=== PATIENT | male | born 1985 | race African-American/Black ===

== ENCOUNTER 2020-06-27 15:40 | Inpatient (IN) | payer MEDICAID ==
[~2020-06-27] VITALS: Ht 170.2 cm; Wt 115.2 kg
[2020-06-27 17:14] LABS: Basophils # (auto) 0.1 10 ^3/uL (0-0.2); Basophils % (auto) 0.4 % (0.0-2.0); Eosinophils # (auto) 0.1 10 ^3/uL (0-0.8); Eosinophils % (auto) 0.7 % (0.0-7.0); Hematocrit 45.7 % (41.0-53.0); Hemoglobin 15.2 g/dL (13.5-17.5); Lymphocytes # (auto) 2.1 10 ^3/uL (0.4-5.4); Lymphocytes % (auto) 15.3 % (10.0-50.0); Mean Corpuscular Hemoglobin 30.6 pg (28.0-32.0); Mean Corpuscular Hgb Conc. 33.2 g/dL (32.0-36.0); Monocytes # (auto) 1.4 10 ^3/uL (0-1.3); Monocytes % (auto) 10.4 % (0.0-12.0); Neutrophils # (auto) 9.9 10 ^3/uL (1.6-8.6); Neutrophils % (auto) 73.2 % (37.0-80.0); Platelet Count (auto) 125 10^3/uL (140-450); Red Blood Cells 4.97 10^6/uL (4.5-5.90); Red Cell Distribution Width 15.7 % (11.8-14.3); White Blood Cell 13.5 10^3/uL (4.4-10.8)
[2020-06-27 17:31] LABS: Potassium 3.4 mmol/L (3.5-5.1)
[2020-06-27 17:40] LABS: Albumin 3.3 g/dL (3.4-5.0); BUN/Creatinine Ratio 15.2; Bilirubin, Total 2.1 mg/dL (0.2-1.0); Calcium 8.6 mg/dL (8.5-10.1); Total Protein 7.5 g/dL (6.4-8.2)
[2020-06-27] MEDS ORDERED: ASPirin 81 mg TAB PO ONE (18:00)
[2020-06-27] MEDS ORDERED: CLOPIDOGREL 300 MG TAB PO ONE (18:00)
[2020-06-27] MEDS ORDERED: MORPHINE SULFATE 4 MG/ML SYR/VIAL IV ONE (18:00)
[2020-06-27] MEDS ORDERED: ONDANSETRON HCL 4 MG/2 ML VIAL IV ONE (18:00)
[2020-06-27] MEDS ORDERED: ENOXAPARIN SOD 100 MG/1 ML SYRINGE SC ONE (20:00)
[2020-06-27] MEDS ORDERED: POTASSIUM CHL 20 Meq TABLET PO ONE (20:00)
[2020-06-27] MEDS ORDERED: FUROSEMIDE 20 MG/2 ML VIAL IV ONE (20:00)
[2020-06-27] MEDS ORDERED: MORPHINE SULF INJ 2 MG/ML SYRINGE 1ML IV PRN (21:00)
[2020-06-27] MEDS ORDERED: NITROGLYCERIN 0.4 MG SL TAB SL PRN (21:00)
[2020-06-27] MEDS ORDERED: HYDROcodone-ACET 5/325MG TAB PO PRN (21:00)
[2020-06-27 21:05] VITALS: BP 136/107
[2020-06-27] MEDS ORDERED: FUROSEMIDE 40 MG/4 ML VIAL IV SCH (22:00)
[2020-06-28] MEDS ORDERED: ONDANSETRON HCL 4 MG/2 ML VIAL IV PRN (02:00)
[2020-06-28] MEDS ORDERED: POTASSIUM CHL 20 Meq TABLET PO SCH (10:00)
== END 2020-06-27 21:37 | disposition left against medical advice (07) | DRG 194 ==
LOC: ER 15:40 → TELE 15:41
PROVIDERS: ADMIT Hospitalist; ATTEND Hospitalist
DX: I11.0 Hypertensive heart disease with heart failure (principal); I21.A1 Myocardial infarction type 2; N17.9 Acute kidney failure, unspecified; I50.33 Acute on chronic diastolic (congestive) heart failure; E87.6 Hypokalemia; M10.9 Gout, unspecified; Z83.3 Family history of diabetes mellitus; Z82.49 Family history of ischemic heart disease and other diseases of the circulatory system
CPT/HCPCS: 36415; 71045; 80053; 83880; 84443; 84484; 85025; 93005; 93971; G0378

== ENCOUNTER 2020-10-24 16:09 | Inpatient (IN) | payer MEDICAID ==
[~2020-10-24] VITALS: Ht 170.2 cm; Wt 122.2 kg
[2020-10-24 17:03] LABS: Basophils # (auto) 0 10 ^3/uL (0-0.2); Basophils % (auto) 0.7 % (0.0-2.0); Eosinophils # (auto) 0.5 10 ^3/uL (0-0.8); Eosinophils % (auto) 8.7 % (0.0-7.0); Hematocrit 45.6 % (41.0-53.0); Hemoglobin 15.1 g/dL (13.5-17.5); Mean Corpuscular Hgb Conc. 33.1 g/dL (32.0-36.0); Mean Corpuscular Volume 93.4 fL (80.0-100.0); Monocytes # (auto) 0.6 10 ^3/uL (0-1.3); Neutrophils % (auto) 48.6 % (37.0-80.0); Nucleated Red Blood Cells % 0.2 %; Platelet Count (auto) 164 10^3/uL (140-450); Red Blood Cells 4.88 10^6/uL (4.5-5.90); Red Cell Distribution Width 16.4 % (11.8-14.3); White Blood Cell 6.2 10^3/uL (4.4-10.8)
[2020-10-24 17:09] LABS: INR 1.26 (0.9-1.15); Partial Thromboplastin Time 27.2 sec (23.0-31.2)
[2020-10-24] MEDS ORDERED: FUROSEMIDE 20 MG/2 ML VIAL IV ONE (17:15)
[2020-10-24 17:24] LABS: Albumin 3.6 g/dL (3.4-5.0); BUN/Creatinine Ratio 11.6; Calcium 8.3 mg/dL (8.5-10.1); Magnesium 2.2 mg/dL (1.6-2.6); Potassium 3.3 mmol/L (3.5-5.1)
[2020-10-24 17:31] LABS: Bilirubin, Total 1.5 mg/dL (0.2-1.0); Total Protein 7.7 g/dL (6.4-8.2)
[2020-10-24] MEDS ORDERED: ENOXAPARIN SOD 100 MG/1 ML SYRINGE SC ONE (18:00)
[2020-10-24] MEDS ORDERED: HEPARIN SODIUM (PORCINE) 5000 UNITS/ML 1ML VIAL IV ONE (19:00)
[2020-10-24] MEDS ORDERED: MORPHINE SULF INJ 2 MG/ML SYRINGE 1ML IV PRN (19:00)
[2020-10-24] MEDS ORDERED: NITROGLYCERIN 0.4 MG SL TAB SL PRN (19:00)
[2020-10-24] MEDS ORDERED: HEPARIN DRIP/D5W 100UNITS/ML 250 ML IV SCH (19:00)
[2020-10-24 19:38] LABS: Basophils # (auto) 0.1 10 ^3/uL (0-0.2); Basophils % (auto) 1.1 % (0.0-2.0); Eosinophils # (auto) 0.6 10 ^3/uL (0-0.8); Eosinophils % (auto) 8.6 % (0.0-7.0); Hematocrit 46.4 % (41.0-53.0); Hemoglobin 15.5 g/dL (13.5-17.5); Lymphocytes # (auto) 2.2 10 ^3/uL (0.4-5.4); Lymphocytes % (auto) 33.8 % (10.0-50.0); Mean Corpuscular Hemoglobin 31.1 pg (28.0-32.0); Mean Corpuscular Hgb Conc. 33.4 g/dL (32.0-36.0); Monocytes # (auto) 0.6 10 ^3/uL (0-1.3); Monocytes % (auto) 9.7 % (0.0-12.0); Neutrophils # (auto) 3.1 10 ^3/uL (1.6-8.6); Neutrophils % (auto) 46.8 % (37.0-80.0); Nucleated Red Blood Cells % 0.3 %; Platelet Count (auto) 172 10^3/uL (140-450); Red Blood Cells 4.99 10^6/uL (4.5-5.90); Red Cell Distribution Width 16.4 % (11.8-14.3); White Blood Cell 6.5 10^3/uL (4.4-10.8)
[2020-10-24 19:55] LABS: INR 1.31 (0.9-1.15); Partial Thromboplastin Time 29.5 sec (23.0-31.2)
[2020-10-24 21:08] LABS: Alcohol, Urine < 3.0 mg/dL (0-10); Amphetamine Screen, Urine NEGATIVE (NEGATIVE); Barbiturate Scree,Urine NEGATIVE (NEGATIVE); Benzodiazephine Screen, Urine NEGATIVE (NEGATIVE); Cannabinoid Screen, Urine NEGATIVE (NEGATIVE); Cocaine Screen, Urine NEGATIVE (NEGATIVE); Opiate Scree,Urine NEGATIVE (NEGATIVE); Phencyclidine Screen, Urine NEGATIVE (NEGATIVE)
[2020-10-25] VITALS (7 sets, daily range): BP systolic 101–134; BP diastolic 51–78
[2020-10-25] MEDS: ATORVASTATIN 20 MG TAB PO SCH ×2 (00:16→21:30)
[2020-10-25] MEDS: METOPROLOL TARTRATE 25 MG TAB PO SCH ×3 (00:17→21:31)
[2020-10-25] MEDS ORDERED: METO25TA5 PO (01:34)
[2020-10-25] MEDS ORDERED: FURO40TA4 PO (01:34)
[2020-10-25] MEDS ORDERED: ALLO100T PO (01:35)
[2020-10-25] MEDS: POTASSIUM CHL 20MEQ/100ML 100 ML IV SCH ×2 (03:01→06:08)
[2020-10-25 06:53] LABS: Basophils # (auto) 0.1 10 ^3/uL (0-0.2); Basophils % (auto) 1.2 % (0.0-2.0); Eosinophils # (auto) 0.6 10 ^3/uL (0-0.8); Eosinophils % (auto) 8.7 % (0.0-7.0); Hematocrit 45.1 % (41.0-53.0); Hemoglobin 15.2 g/dL (13.5-17.5); Lymphocytes % (auto) 28.8 % (10.0-50.0); Mean Corpuscular Hemoglobin 31.4 pg (28.0-32.0); Mean Corpuscular Hgb Conc. 33.7 g/dL (32.0-36.0); Mean Corpuscular Volume 93.1 fL (80.0-100.0); Monocytes # (auto) 0.6 10 ^3/uL (0-1.3); Monocytes % (auto) 9.1 % (0.0-12.0); Neutrophils # (auto) 3.7 10 ^3/uL (1.6-8.6); Neutrophils % (auto) 52.2 % (37.0-80.0); Nucleated Red Blood Cells % 0.6 %; Platelet Count (auto) 171 10^3/uL (140-450); Red Blood Cells 4.85 10^6/uL (4.5-5.90); Red Cell Distribution Width 16.6 % (11.8-14.3); White Blood Cell 7.1 10^3/uL (4.4-10.8)
[2020-10-25 07:07] LABS: INR 1.25 (0.9-1.15)
[2020-10-25 07:09] LABS: Calcium 9.3 mg/dL (8.5-10.1); Magnesium 2.5 mg/dL (1.6-2.6); Potassium 4.2 mmol/L (3.5-5.1)
[2020-10-25] MEDS ORDERED: fentaNYL CITRATE 100 MCG/2 ML VL ONE (13:04)
[2020-10-25] MEDS ORDERED: IODIXANOL 320MG/ML 100ML BTL IV ONE (13:04)
[2020-10-25] MEDS ORDERED: SODIUM CHL 0.9% 0 ML ONE (13:04)
[2020-10-25] MEDS ORDERED: MIDAZOLAM HCL 1MG/1ML-2 ML VIAL ONE (13:04)
[2020-10-25] MEDS ORDERED: ANGIOMAX 250 MG VIAL IV ONE (13:04)
[2020-10-25] MEDS ORDERED: HEPARIN SODIUM (PORCINE) 5000 UNITS/ML 1ML VIAL ONE (13:04)
[2020-10-25] MEDS ORDERED: VERAPAMIL 2.5MG/ML INJ 2ML VIAL IV ONE (13:05)
[2020-10-25] MEDS ORDERED: LIDOCAINE 2%HCL (LOCAL ANESTH.) INJ 20ML MDV ONE (13:05)
[2020-10-25] MEDS: FUROSEMIDE 100 MG/10ML VIAL IV SCH (18:40)
[2020-10-26 05:00] VITALS: BP 112/75
[2020-10-26] MEDS: FUROSEMIDE 100 MG/10ML VIAL IV SCH (05:23)
[2020-10-26 08:15] VITALS: BP 102/63
[2020-10-26 09:00] VITALS: BP 102/63
[2020-10-26] MEDS: METOPROLOL TARTRATE 25 MG TAB PO SCH (09:53)
[2020-10-26] MEDS ORDERED: DAPAGLIFLOZIN 5 MG TAB PO SCH (10:00)
[2020-10-26 13:00] VITALS: BP 114/72
[2020-10-26] MEDS ORDERED: ATOR20TA50 PO (15:08)
[2020-10-26] MEDS ORDERED: ASPI-266 PO (15:08)
[2020-10-26] MEDS ORDERED: ENAL2.5T7 PO (15:08)
[2020-10-26] MEDS ORDERED: MET25T PO (15:08)
[2020-10-26] MEDS ORDERED: FURO40TA4 PO (15:08)
[2020-10-26] MEDS ORDERED: DAPA1TAB4 PO (15:08)
[2020-10-26 15:52] VITALS: BP 114/72
[2020-10-26 16:30] VITALS: BP 110/73
[2020-10-27] MEDS ORDERED: ENALAPRIL MALEATE 2.5 MG TAB PO SCH (10:00)
== END 2020-10-26 16:34 | disposition home health service (06) | DRG 190 ==
LOC: ER 16:09 → TELE 18:54 → TELE-WESTW 23:00
PROVIDERS: ADMIT Internal Medicine; ATTEND Internal Medicine
PROC: 4A023N7 Measurement of Cardiac Sampling and Pressure, Left Heart, Percutaneous Approach (ICD-10-PCS; principal; 2020-10-25)
PROC: B2111ZZ Fluoroscopy of Multiple Coronary Arteries using Low Osmolar Contrast (ICD-10-PCS; 2020-10-25)
DX: I21.4 Non-ST elevation (NSTEMI) myocardial infarction (principal); I50.21 Acute systolic (congestive) heart failure; I11.0 Hypertensive heart disease with heart failure; Z20.822 Contact with and (suspected) exposure to COVID-19; I25.10 Atherosclerotic heart disease of native coronary artery without angina pectoris; K21.9 Gastro-esophageal reflux disease without esophagitis; M10.9 Gout, unspecified; E66.9 Obesity, unspecified; Z82.49 Family history of ischemic heart disease and other diseases of the circulatory system; Z83.3 Family history of diabetes mellitus; Z68.37 Body mass index [BMI] 37.0-37.9, adult; Z88.0 Allergy status to penicillin; Z88.1 Allergy status to other antibiotic agents
CPT/HCPCS: 36415; 71045; 80048; 80053; 80061; 80307; 83735; 84484; 85025; 85379; 85610; 85730; 87426; 93005; 93306; 93458; 96372; 96374; 99152; G0378; J2250; J3480; Q9967

== ENCOUNTER 2021-05-06 09:41 | Inpatient (IN) | payer MEDICAID ==
[~2021-05-06] VITALS: Ht 170.2 cm; Wt 117.9 kg
[~2021-05-06 09:41] MED LIST: ALLO100T PO; ASPI1TAB91 PO; ATOR20TA50 PO; DAPA1TAB4 PO; ENAL2.5T7 PO; FURO40TA4 PO; MET25T PO
[2021-05-06] MEDS ORDERED: IOHEXOL 350 MG/ML 100ML IJ ONE (10:22)
[2021-05-06 11:25] LABS: Basophils # (auto) 0 10 ^3/uL (0-0.2); Basophils % (auto) 0.6 % (0.0-2.0); Eosinophils # (auto) 0.2 10 ^3/uL (0-0.8); Eosinophils % (auto) 4.6 % (0.0-7.0); Hematocrit 45.4 % (41.0-53.0); Lymphocytes # (auto) 0.7 10 ^3/uL (0.4-5.4); Lymphocytes % (auto) 14.5 % (10.0-50.0); Mean Corpuscular Hemoglobin 30.5 pg (28.0-32.0); Mean Corpuscular Hgb Conc. 33.1 g/dL (32.0-36.0); Monocytes # (auto) 0.5 10 ^3/uL (0-1.3); Neutrophils # (auto) 3.3 10 ^3/uL (1.6-8.6); Neutrophils % (auto) 70.3 % (37.0-80.0); Nucleated Red Blood Cells % 0.2 %; Red Blood Cells 4.94 10^6/uL (4.5-5.90); Red Cell Distribution Width 17.3 % (11.8-14.3); White Blood Cell 4.7 10^3/uL (4.4-10.8)
[2021-05-06 11:37] LABS: Albumin 3.2 g/dL (3.4-5.0); Calcium 8.3 mg/dL (8.5-10.1); Potassium 3.3 mmol/L (3.5-5.1)
[2021-05-06 11:47] LABS: BUN/Creatinine Ratio 10.3; Bilirubin, Total 2.6 mg/dL (0.2-1.0); CRP High Sensitivity 2.13 mg/dL (< 0.3)
[2021-05-06] MEDS ORDERED: POTASSIUM EFFERVESENT TAB 25 MEQ PO ONE (14:45)
[2021-05-06] MEDS ORDERED: ENOXAPARIN SOD 120 MG/0.8 ML SYRINGE SC ONE (14:45)
[2021-05-06] MEDS ORDERED: cefTRIAXone 1GM/50ML D5W 50 ML IV ONE (16:15)
[2021-05-06] MEDS ORDERED: NITROGLYCERIN 0.4 MG SL TAB SL PRN (16:15)
[2021-05-06] MEDS ORDERED: ONDANSETRON HCL 4 MG/2 ML VIAL IV PRN (16:15)
[2021-05-06] MEDS ORDERED: AZITHROMYCIN 500MG/ 250ML 250 ML IV ONE (16:15)
[2021-05-06] MEDS ORDERED: levoFLOXacin 500 MG TAB PO ONE (16:15)
[2021-05-06] MEDS ORDERED: MORPHINE SULFATE INJECTION 2 MG/ML SYRG IV PRN (16:15)
[2021-05-06] MEDS ORDERED: HYDROcodone-ACET 5/325MG TAB PO PRN (16:15)
[2021-05-06] MEDS: FUROSEMIDE 40 MG/4 ML VIAL IV SCH (16:44)
[2021-05-06 17:51] LABS: Urine Bacteria NONE SEEN /hpf (None Seen); Urine Blood Negative /uL (Negative); Urine Specific Gravity 1.007 (1.001-1.035); Urine WBC <1 /hpf (0 - 3)
[2021-05-06] MEDS: IPRATROPIUM BROM 0.5 MG/2.5ML INH SOL NEB SCH (19:45)
[2021-05-06] MEDS: ALBUTEROL SULF 2.5 MG/0.5ML(0.5%) NEB SOLN NEB SCH (19:45)
[2021-05-06] MEDS: METOPROLOL TARTRATE 25 MG TAB PO SCH (21:37)
[2021-05-06 21:38] VITALS: BP 117/83
[2021-05-06] MEDS ORDERED: ACETAMINOPHEN 325 MG TAB PO PRN (23:30)
[2021-05-07] VITALS (8 sets, daily range): BP systolic 115–146; BP diastolic 62–76
[2021-05-07 06:00] LABS: Basophils # (auto) 0 10 ^3/uL (0-0.2); Basophils % (auto) 0.6 % (0.0-2.0); Eosinophils # (auto) 0 10 ^3/uL (0-0.8); Eosinophils % (auto) 0.7 % (0.0-7.0); Hematocrit 41.7 % (41.0-53.0); Hemoglobin 13.9 g/dL (13.5-17.5); Lymphocytes # (auto) 1.3 10 ^3/uL (0.4-5.4); Lymphocytes % (auto) 23.5 % (10.0-50.0); Mean Corpuscular Hemoglobin 30.7 pg (28.0-32.0); Mean Corpuscular Hgb Conc. 33.4 g/dL (32.0-36.0); Mean Corpuscular Volume 92.1 fL (80.0-100.0); Monocytes # (auto) 0.6 10 ^3/uL (0-1.3); Monocytes % (auto) 11.1 % (0.0-12.0); Neutrophils # (auto) 3.6 10 ^3/uL (1.6-8.6); Neutrophils % (auto) 64.1 % (37.0-80.0); Nucleated Red Blood Cells % 0.3 %; Red Blood Cells 4.53 10^6/uL (4.5-5.90); Red Cell Distribution Width 17.3 % (11.8-14.3); White Blood Cell 5.7 10^3/uL (4.4-10.8)
[2021-05-07] MEDS ORDERED: ENOXAPARIN SOD 120 MG/0.8 ML SYRINGE SC SCH (06:00)
[2021-05-07 06:28] LABS: BUN/Creatinine Ratio 9.9; Calcium 8.1 mg/dL (8.5-10.1); Potassium 3.4 mmol/L (3.5-5.1)
[2021-05-07] MEDS: IPRATROPIUM BROM 0.5 MG/2.5ML INH SOL NEB SCH ×3 (07:27→18:00)
[2021-05-07] MEDS: ALBUTEROL SULF 2.5 MG/0.5ML(0.5%) NEB SOLN NEB SCH ×3 (07:27→18:00)
[2021-05-07] MEDS: FUROSEMIDE 40 MG/4 ML VIAL IV SCH (09:21)
[2021-05-07] MEDS: METOPROLOL TARTRATE 25 MG TAB PO SCH (09:22)
[2021-05-07] MEDS ORDERED: POTASSIUM CHL 20 Meq TABLET PO ONE (10:00)
[2021-05-07] MEDS ORDERED: levoFLOXacin 500 MG TAB PO SCH (10:00)
[2021-05-07] MEDS ORDERED: ASPirin-EC 81 mg tab PO SCH (10:00)
[2021-05-07 14:22] LABS: Protein, Urine 11.2 mg/dL (0.0-11.9)
[2021-05-07 14:24] LABS: Amphetamine Screen, Urine NEGATIVE (NEGATIVE); Barbiturate Scree,Urine NEGATIVE (NEGATIVE); Benzodiazephine Screen, Urine NEGATIVE (NEGATIVE); Cannabinoid Screen, Urine NEGATIVE (NEGATIVE); Cocaine Screen, Urine NEGATIVE (NEGATIVE); Opiate Scree,Urine NEGATIVE (NEGATIVE); Phencyclidine Screen, Urine NEGATIVE (NEGATIVE)
[2021-05-07 14:27] LABS: Alcohol, Urine < 3.0 mg/dL (0-10)
[2021-05-07] MEDS ORDERED: FUROSEMIDE 40 MG/4 ML VIAL IV ONE (15:00)
[2021-05-07] MEDS ORDERED: FURO40TA4 PO (15:41)
[2021-05-07] MEDS ORDERED: LEVO-28 PO (15:41)
[2021-05-07] MEDS ORDERED: ALBUAER3 IN (15:41)
[2021-05-07] MEDS ORDERED: MET25T PO (15:41)
== END 2021-05-07 21:50 | disposition home health service (06) | DRG 139 ==
LOC: ER 09:41 → TELE 16:09 → TELE-EAST 20:49 → TELE-WESTW 05-07 14:57
PROVIDERS: ADMIT Internal Medicine; ATTEND Internal Medicine
DX: J18.9 Pneumonia, unspecified organism (principal); I21.4 Non-ST elevation (NSTEMI) myocardial infarction; I50.33 Acute on chronic diastolic (congestive) heart failure; I13.0 Hypertensive heart and chronic kidney disease with heart failure and stage 1 through stage 4 chronic kidney disease, or unspecified chronic kidney disease; E66.01 Morbid (severe) obesity due to excess calories; E78.5 Hyperlipidemia, unspecified; K21.9 Gastro-esophageal reflux disease without esophagitis; R06.03 Acute respiratory distress; Z20.822 Contact with and (suspected) exposure to COVID-19; E87.6 Hypokalemia; M10.9 Gout, unspecified; N18.30 Chronic kidney disease, stage 3 unspecified; Z82.49 Family history of ischemic heart disease and other diseases of the circulatory system; Z83.3 Family history of diabetes mellitus; Z91.19 Patient's noncompliance with other medical treatment and regimen
CPT/HCPCS: 36415; 71275; 76775; 80048; 80053; 80307; 81001; 82306; 82550; 82570; 82728; 83880; 83970; 84100; 84156; 84300; 84484; 84550; 85025; 86141; 87040; 87426; 93005; 93306; 94640; 96365; 96366; 96368; 96372; 96375; 99291; G0378; J0696

== ENCOUNTER 2021-10-01 16:13 | Inpatient (IN) | payer MEDICAID ==
[~2021-10-01] VITALS: Ht 170.2 cm; Wt 121.0 kg
[~2021-10-01 16:13] MED LIST changes: +ALBUAER3 IN; +LEVO-28 PO
[2021-10-01 17:06] LABS: Hemoglobin 14.9 g/dL (13.5-17.5); Mean Corpuscular Hgb Conc. 32.3 g/dL (32.0-36.0); Mean Corpuscular Volume 92.8 fL (80.0-100.0); Red Blood Cells 4.95 10^6/uL (4.5-5.90); Red Cell Distribution Width 17.8 % (11.8-14.3); White Blood Cell 5.9 10^3/uL (4.4-10.8)
[2021-10-01 17:31] LABS: Albumin 3.4 g/dL (3.4-5.0); BUN/Creatinine Ratio 7.8; Calcium 8.6 mg/dL (8.5-10.1); Potassium 3.7 mmol/L (3.5-5.1)
[2021-10-01 17:37] LABS: Basophils % (manual) 0 (0.0-2.0); Bilirubin, Total 3.8 mg/dL (0.2-1.0); Blast Cells 0; Metamyelocytes % 0; Myelocytes % 0; Promyelocytes % 0; Total Protein 7.8 g/dL (6.4-8.2)
[2021-10-01] MEDS ORDERED: ASPirin 325 MG TAB PO ONE (18:00)
[2021-10-01 18:28] LABS: INR 1.45 (0.9-1.15); Partial Thromboplastin Time 29.1 sec (23.6-33.0)
[2021-10-01] MEDS ORDERED: CLOPIDOGREL BISULFATE 75 MG TAB PO ONE (18:30)
[2021-10-01] MEDS ORDERED: HEPARIN SODIUM (PORCINE) 5000 UNITS/ML 1ML VIAL IV ONE (18:30)
[2021-10-01 18:35] LABS: Band Neutrophils % (manual) 1; Eosinophils % (manual) 15 (0-7); Lymphocytes % (manual) 22 (10.0-50.0); Monocytes % (manual) 10 (0-12); Reactive Lymphocytes 2
[2021-10-01] MEDS ORDERED: HEPARIN SODIUM (PORCINE) 5000 UNITS/ML 1ML VIAL ONE (19:30)
[2021-10-01] MEDS ORDERED: MORPHINE SULFATE 4 MG/ML SYR/VIAL IV PRN (19:45)
[2021-10-01] MEDS ORDERED: ONDANSETRON HCL 4 MG/2 ML VIAL IV PRN (19:45)
[2021-10-01] MEDS ORDERED: HEPARIN DRIP/D5W 100UNITS/ML 250 ML IV SCH ×2 (19:45→21:15)
[2021-10-01] MEDS ORDERED: MORPHINE SULFATE INJECTION 2 MG/ML SYRG IV PRN (19:45)
[2021-10-01] MEDS ORDERED: ACETAMINOPHEN 325 MG TAB PO PRN (19:45)
[2021-10-01] MEDS ORDERED: NITROGLYCERIN 0.4 MG SL TAB SL PRN (19:45)
[2021-10-01] MEDS ORDERED: POTASSIUM CHL 20MEQ/100ML 100 ML IV ONE (20:00)
[2021-10-01] MEDS: FUROSEMIDE 40 MG/4 ML VIAL IV SCH (20:46)
[2021-10-01 23:45] VITALS: BP 126/74
[2021-10-02] VITALS (16 sets, daily range): BP systolic 87–133; BP diastolic 36–88
[2021-10-02] MEDS: ATORVASTATIN 20 MG TAB PO SCH ×2 (00:04→21:39)
[2021-10-02] MEDS: METOPROLOL TARTRATE 25 MG TAB PO SCH ×3 (00:04→21:40)
[2021-10-02 00:29] LABS: INR 1.43 (0.9-1.15); Partial Thromboplastin Time 27.5 sec (23.6-33.0)
[2021-10-02] MEDS: FUROSEMIDE 40 MG/4 ML VIAL IV SCH ×2 (06:00→18:06)
[2021-10-02 06:56] LABS: Hematocrit 42.4 % (41.0-53.0); Mean Corpuscular Hemoglobin 30.6 pg (28.0-32.0); Mean Corpuscular Hgb Conc. 33.1 g/dL (32.0-36.0); Mean Corpuscular Volume 92.4 fL (80.0-100.0); Red Blood Cells 4.59 10^6/uL (4.5-5.90); Red Cell Distribution Width 18.2 % (11.8-14.3); White Blood Cell 6.1 10^3/uL (4.4-10.8)
[2021-10-02 07:14] LABS: Albumin 3.1 g/dL (3.4-5.0); BUN/Creatinine Ratio 10.7; Band Neutrophils % (manual) 0; Basophils % (manual) 0 (0.0-2.0); Blast Cells 0; Calcium 8.4 mg/dL (8.5-10.1); Metamyelocytes % 0; Myelocytes % 0; Potassium 3.5 mmol/L (3.5-5.1); Promyelocytes % 0; Reactive Lymphocytes 0
[2021-10-02 07:19] LABS: Bilirubin, Total 3.7 mg/dL (0.2-1.0)
[2021-10-02 07:46] LABS: INR 1.52 (0.9-1.15)
[2021-10-02] MEDS ORDERED: HEPARIN SODIUM (PORCINE) 5000 UNITS/ML 1ML VIAL IV ONE (08:15)
[2021-10-02] MEDS ORDERED: CAL025T GT (09:31)
[2021-10-02] MEDS ORDERED: FURO80TA3 PO (09:33)
[2021-10-02] MEDS ORDERED: 1,4-CRY XX (09:33)
[2021-10-02] MEDS ORDERED: ATOR20TA50 PO (09:33)
[2021-10-02 10:38] LABS: Eosinophils % (manual) 11 (0-7); Lymphocytes % (manual) 21 (10.0-50.0); Monocytes % (manual) 15 (0-12)
[2021-10-02] MEDS: ASPirin 81 mg TAB PO SCH (10:44)
[2021-10-02 15:13] LABS: INR 1.47 (0.9-1.15); Partial Thromboplastin Time 28.6 sec (23.6-33.0)
[2021-10-02] MEDS: SACUBITRIL-VALSARTAN 24mg/26mg TAB PO SCH (21:39)
[2021-10-02] MEDS: ENOXAPARIN SOD 40 MG/0.4 ML SYRINGE SC SCH (21:40)
[2021-10-03] VITALS (7 sets, daily range): BP systolic 110–135; BP diastolic 53–85
[2021-10-03] MEDS: FUROSEMIDE 40 MG/4 ML VIAL IV SCH ×2 (06:06→18:05)
[2021-10-03 06:13] LABS: Hematocrit 43.2 % (41.0-53.0); Hemoglobin 14.5 g/dL (13.5-17.5); Mean Corpuscular Hgb Conc. 33.6 g/dL (32.0-36.0); Red Cell Distribution Width 17.8 % (11.8-14.3); White Blood Cell 6.4 10^3/uL (4.4-10.8)
[2021-10-03 06:17] LABS: Band Neutrophils % (manual) 0; Basophils % (manual) 0 (0.0-2.0); Blast Cells 0; Metamyelocytes % 0; Myelocytes % 0; Promyelocytes % 0; Reactive Lymphocytes 0
[2021-10-03 06:24] LABS: BUN/Creatinine Ratio 13.7; Calcium 8.8 mg/dL (8.5-10.1); Magnesium 2.8 mg/dL (1.6-2.6); Potassium 3.1 mmol/L (3.5-5.1)
[2021-10-03 08:02] LABS: Eosinophils % (manual) 22 (0-7); Lymphocytes % (manual) 13 (10.0-50.0); Monocytes % (manual) 12 (0-12)
[2021-10-03] MEDS: POTASSIUM CHL 20MEQ/100ML 100 ML IV SCH ×2 (08:24→09:52)
[2021-10-03] MEDS: ENOXAPARIN SOD 40 MG/0.4 ML SYRINGE SC SCH ×2 (09:45→21:46)
[2021-10-03] MEDS: ASPirin 81 mg TAB PO SCH (09:45)
[2021-10-03] MEDS: SACUBITRIL-VALSARTAN 24mg/26mg TAB PO SCH ×2 (09:45→21:45)
[2021-10-03] MEDS: METOPROLOL TARTRATE 25 MG TAB PO SCH ×2 (09:46→21:46)
[2021-10-03] MEDS: HYDROcodone-ACET 5/325MG TAB PO PRN ×2 (09:51→15:19)
[2021-10-03] MEDS ORDERED: POTASSIUM EFFERVESENT TAB 25 MEQ GT ONE (11:15)
[2021-10-03] MEDS ORDERED: POTASSIUM CHL 20MEQ/100ML 100 ML IV ONE (11:15)
[2021-10-03] MEDS ORDERED: ALLOPURINOL 100 MG TAB PO ONE (11:30)
[2021-10-03] MEDS ORDERED: POTASSIUM CHL 20 Meq TABLET PO ONE (11:45)
[2021-10-03] MEDS: ATORVASTATIN 20 MG TAB PO SCH (21:45)
[2021-10-04 05:00] VITALS: BP 119/82
[2021-10-04] MEDS: FUROSEMIDE 40 MG/4 ML VIAL IV SCH (06:46)
[2021-10-04 09:00] VITALS: BP 107/72
[2021-10-04] MEDS: SACUBITRIL-VALSARTAN 24mg/26mg TAB PO SCH ×2 (09:08→21:27)
[2021-10-04] MEDS: METOPROLOL TARTRATE 25 MG TAB PO SCH ×2 (09:08→21:44)
[2021-10-04] MEDS: ASPirin 81 mg TAB PO SCH (09:08)
[2021-10-04] MEDS: ENOXAPARIN SOD 40 MG/0.4 ML SYRINGE SC SCH ×2 (09:08→21:45)
[2021-10-04 12:59] VITALS: BP 123/74
[2021-10-04] MEDS ORDERED: BUMETANIDE 2.5mg/10ml (0.25 mg/ml) INJ IV SCH ×2 (14:00)
[2021-10-04 15:56] LABS: BUN/Creatinine Ratio 14.2; Calcium 8.9 mg/dL (8.5-10.1); Magnesium 2.7 mg/dL (1.6-2.6); Potassium 3.8 mmol/L (3.5-5.1)
[2021-10-04 15:58] LABS: Bilirubin, Total 2.4 mg/dL (0.2-1.0); Total Protein 7.7 g/dL (6.4-8.2)
[2021-10-04 17:00] VITALS: BP 126/69
[2021-10-04] MEDS: BUMETANIDE 1mg/4ml VIAL (0.25mg/ml) IV SCH (17:46)
[2021-10-04 20:08] LABS: Calcium 9.4 mg/dL (8.5-10.1); Potassium 3.7 mmol/L (3.5-5.1)
[2021-10-04 20:10] LABS: BUN/Creatinine Ratio 15.4
[2021-10-04] MEDS: ATORVASTATIN 20 MG TAB PO SCH (21:27)
[2021-10-04 22:00] VITALS: BP 117/72
[2021-10-05 05:11] VITALS: BP 120/76
[2021-10-05 05:23] LABS: Hematocrit 46.7 % (41.0-53.0); Hemoglobin 15.8 g/dL (13.5-17.5); Mean Corpuscular Hemoglobin 31.1 pg (28.0-32.0); Mean Corpuscular Hgb Conc. 33.8 g/dL (32.0-36.0); Mean Corpuscular Volume 92.1 fL (80.0-100.0); Red Blood Cells 5.08 10^6/uL (4.5-5.90); Red Cell Distribution Width 17.4 % (11.8-14.3); White Blood Cell 6.9 10^3/uL (4.4-10.8)
[2021-10-05 05:26] LABS: Band Neutrophils % (manual) 0; Basophils % (manual) 0 (0.0-2.0); Blast Cells 0; Metamyelocytes % 0; Myelocytes % 0; Promyelocytes % 0; Reactive Lymphocytes 0
[2021-10-05 05:36] LABS: Magnesium 2.8 mg/dL (1.6-2.6); Potassium 4.1 mmol/L (3.5-5.1)
[2021-10-05 05:38] LABS: BUN/Creatinine Ratio 14.8
[2021-10-05 06:35] LABS: Eosinophils % (manual) 24 (0-7); Lymphocytes % (manual) 25 (10.0-50.0); Monocytes % (manual) 9 (0-12)
[2021-10-05] MEDS: BUMETANIDE 1mg/4ml VIAL (0.25mg/ml) IV SCH (06:35)
[2021-10-05 09:00] VITALS: BP 141/85
[2021-10-05] MEDS: ASPirin 81 mg TAB PO SCH (10:20)
[2021-10-05] MEDS: ENOXAPARIN SOD 40 MG/0.4 ML SYRINGE SC SCH (10:20)
[2021-10-05] MEDS: SACUBITRIL-VALSARTAN 24mg/26mg TAB PO SCH (10:21)
[2021-10-05] MEDS: METOPROLOL TARTRATE 25 MG TAB PO SCH (10:21)
[2021-10-05] MEDS ORDERED: BUME1TAB3 PO (11:01)
[2021-10-05] MEDS ORDERED: SACU1TAB PO (11:01)
[2021-10-05 11:19] VITALS: BP 141/85
== END 2021-10-05 12:10 | disposition home or self-care (01) | DRG 190 ==
LOC: ER 16:13 → TELE 19:37 → DOU IN ICU 23:34 → TELE-WESTW 10-03 12:52
PROVIDERS: ADMIT Internal Medicine; ATTEND Internal Medicine
DX: I21.4 Non-ST elevation (NSTEMI) myocardial infarction (principal); J96.01 Acute respiratory failure with hypoxia; I50.33 Acute on chronic diastolic (congestive) heart failure; I42.2 Other hypertrophic cardiomyopathy; I10 Essential (primary) hypertension; E66.01 Morbid (severe) obesity due to excess calories; E78.5 Hyperlipidemia, unspecified; E87.6 Hypokalemia; Z20.822 Contact with and (suspected) exposure to COVID-19; Z68.41 Body mass index [BMI] 40.0-44.9, adult
CPT/HCPCS: 36415; 71046; 80048; 80053; 83735; 83880; 84132; 84484; 85007; 85027; 85610; 85730; 87081; 93005; 93306; 93970; 96361; 96374; 99291; G0378; J3480

== ENCOUNTER 2022-05-07 09:25 | Inpatient (IN) | payer MEDICAID ==
[~2022-05-07] VITALS: Ht 170.2 cm; Wt 116.2 kg
[~2022-05-07 09:25] MED LIST changes: +1,4-CRY XX; +BUME1TAB3 PO; -DAPA1TAB4 PO; -ENAL2.5T7 PO; -FURO40TA4 PO; -LEVO-28 PO; +SACU1TAB PO
[2022-05-07 10:03] LABS: Basophils # (auto) 0 10 ^3/uL (0-0.2); Basophils % (auto) 0.8 % (0.0-2.0); Eosinophils # (auto) 0 10 ^3/uL (0-0.8); Eosinophils % (auto) 0.1 % (0.0-7.0); Hematocrit 50.6 % (41.0-53.0); Hemoglobin 16.8 g/dL (13.5-17.5); Lymphocytes # (auto) 0.7 10 ^3/uL (0.4-5.4); Lymphocytes % (auto) 14.8 % (10.0-50.0); Mean Corpuscular Hemoglobin 30.3 pg (28.0-32.0); Mean Corpuscular Hgb Conc. 33.2 g/dL (32.0-36.0); Mean Corpuscular Volume 91.2 fL (80.0-100.0); Monocytes # (auto) 0.5 10 ^3/uL (0-1.3); Monocytes % (auto) 9.3 % (0.0-12.0); Neutrophils # (auto) 3.8 10 ^3/uL (1.6-8.6); Nucleated Red Blood Cells % 0.3 %; Red Blood Cells 5.55 10^6/uL (4.5-5.90); Red Cell Distribution Width 17.5 % (11.8-14.3)
[2022-05-07 10:14] LABS: Calcium 8.6 mg/dL (8.5-10.1); Potassium 3.3 mmol/L (3.5-5.1)
[2022-05-07] MEDS ORDERED: SODIUM CHLORIDE 0.9% 1,000 ML IV ONE (10:15)
[2022-05-07] MEDS ORDERED: cefTRIAXone 1GM/50ML D5W 50 ML IV ONE (10:15)
[2022-05-07] MEDS ORDERED: AZITHROMYCIN 500MG/ 250ML 250 ML IV ONE (10:15)
[2022-05-07 10:21] LABS: Albumin 3.6 g/dL (3.4-5.0); Magnesium 1.9 mg/dL (1.6-2.6); Total Protein 7.3 g/dL (6.4-8.2)
[2022-05-07 10:27] LABS: INR 1.57 (0.9-1.15); Partial Thromboplastin Time 31.3 sec (24.6-33.4)
[2022-05-07] MEDS ORDERED: FUROSEMIDE 40 MG/4 ML VIAL IV ONE (10:30)
[2022-05-07] MEDS ORDERED: methylPREDNISolone SOD SUCC 125 MG/2 ML VL IV ONE (10:30)
[2022-05-07 10:40] LABS: Lactic Acid w/Reflex 2.9 mmol/L (0.4-2.0)
[2022-05-07] MEDS ORDERED: ENOXAPARIN SOD 120 MG/0.8 ML SYRINGE SC ONE (11:00)
[2022-05-07] MEDS ORDERED: POTASSIUM EFFERVESENT TAB 25 MEQ PO ONE (11:00)
[2022-05-07 12:22] LABS: Urine Bacteria NONE SEEN /hpf (None Seen); Urine Blood TRACE /uL (Negative); Urine Specific Gravity 1.009 (1.001-1.035); Urine WBC 2 /hpf (0 - 3)
[2022-05-07] MEDS ORDERED: ACETAMINOPHEN 325 MG TAB PO PRN (12:30)
[2022-05-07] MEDS ORDERED: MORPHINE SULFATE 4 MG/ML SYR/VIAL IV PRN (12:30)
[2022-05-07] MEDS ORDERED: ONDANSETRON HCL 4 MG/2 ML VIAL IV PRN (12:30)
[2022-05-07] MEDS ORDERED: ALUM & MAG HYDROX-SIMETH LIQ(MAALOX) 30 ML PO ONE (12:30)
[2022-05-07] MEDS ORDERED: MORPHINE SULFATE INJ 2 MG/ml SYRG IV PRN (12:30)
[2022-05-07] MEDS ORDERED: NITROGLYCERIN 0.4 MG SL TAB SL PRN ×2 (12:30)
[2022-05-07 13:37] LABS: Creatinine, Urine 70 mg/dL (30.0-125.0); Sodium Urine 99 mmol/L (40-220)
[2022-05-07 13:45] LABS: Lactic Acid w/Reflex 2.1 mmol/L (0.4-2.0)
[2022-05-07] MEDS ORDERED: dilTIAZem 125mg/125ml BAG KIT 100 ML IV SCH (15:45)
[2022-05-07] MEDS ORDERED: LIDOCAINE 4MG/ML IV SOLN 500 ML IV SCH ×2 (16:00→16:15)
[2022-05-07] MEDS ORDERED: AMIODARONE HCL 150 MG in D5W 5% 100 ML IV ONE (16:30)
[2022-05-07 16:47] LABS: Phosphorus 2.7 mg/dL (2.5-4.90); Potassium 3.2 mmol/L (3.5-5.1)
[2022-05-07 17:05] LABS: Alcohol, Urine < 3.0 mg/dL (0-10); Amphetamine Screen, Urine NEGATIVE (NEGATIVE); Barbiturate Scree,Urine NEGATIVE (NEGATIVE); Benzodiazephine Screen, Urine NEGATIVE (NEGATIVE); Cannabinoid Screen, Urine NEGATIVE (NEGATIVE); Cocaine Screen, Urine NEGATIVE (NEGATIVE); Opiate Scree,Urine NEGATIVE (NEGATIVE); Phencyclidine Screen, Urine NEGATIVE (NEGATIVE)
[2022-05-07] MEDS: POTASSIUM CHL 20MEQ/100ML 100 ML IV SCH (19:28)
[2022-05-07 20:00] VITALS: BP 110/60
[2022-05-07 21:00] VITALS: BP 101/65
[2022-05-07] MEDS: ATORVASTATIN 20 MG TAB PO SCH (21:36)
[2022-05-07] MEDS: CARVEDILOL 3.125 MG TAB PO SCH (21:36)
[2022-05-07 22:00] VITALS: BP 100/54
[2022-05-07] MEDS: ENOXAPARIN SOD 100 MG/1 ML SYRINGE SC SCH (22:00)
[2022-05-07 23:00] VITALS: BP 121/77
[2022-05-08] VITALS (20 sets, daily range): BP systolic 98–124; BP diastolic 59–79
[2022-05-08] MEDS: BUMETANIDE 2.5mg/10ml (0.25 mg/ml) INJ IV SCH ×3 (01:12→17:42)
[2022-05-08] MEDS: POTASSIUM CHL 20MEQ/100ML 100 ML IV SCH (02:00)
[2022-05-08 04:50] LABS: Basophils # (auto) 0 10 ^3/uL (0-0.2); Basophils % (auto) 0.5 % (0.0-2.0); Eosinophils # (auto) 0 10 ^3/uL (0-0.8); Hematocrit 48.7 % (41.0-53.0); Hemoglobin 16.5 g/dL (13.5-17.5); Lymphocytes # (auto) 0.8 10 ^3/uL (0.4-5.4); Lymphocytes % (auto) 13.9 % (10.0-50.0); Mean Corpuscular Hemoglobin 30.5 pg (28.0-32.0); Mean Corpuscular Hgb Conc. 33.9 g/dL (32.0-36.0); Monocytes # (auto) 0.3 10 ^3/uL (0-1.3); Neutrophils # (auto) 4.6 10 ^3/uL (1.6-8.6); Neutrophils % (auto) 80.6 % (37.0-80.0); Nucleated Red Blood Cells % 0.1 %; Red Blood Cells 5.42 10^6/uL (4.5-5.90); Red Cell Distribution Width 17.2 % (11.8-14.3); White Blood Cell 5.7 10^3/uL (4.4-10.8)
[2022-05-08 05:08] LABS: Calcium 8.5 mg/dL (8.5-10.1); Magnesium 2.1 mg/dL (1.6-2.6); Potassium 4.1 mmol/L (3.5-5.1)
[2022-05-08 05:15] LABS: Albumin 3.4 g/dL (3.4-5.0); BUN/Creatinine Ratio 26.8; Bilirubin, Total 3.7 mg/dL (0.2-1.0); Total Protein 7.2 g/dL (6.4-8.2)
[2022-05-08] MEDS: cefTRIAXone 1GM/50ML D5W 50 ML IV SCH (09:15)
[2022-05-08] MEDS ORDERED: CLOPIDOGREL BISULFATE 75 MG TAB PO SCH (10:00)
[2022-05-08] MEDS: DOCUSATE SOD 100 MG CAP PO SCH (10:00)
[2022-05-08] MEDS: ASPirin 325 MG TAB PO SCH (10:50)
[2022-05-08] MEDS: AZITHROMYCIN 500MG/ 250ML 250 ML IV SCH (10:50)
[2022-05-08] MEDS: CARVEDILOL 3.125 MG TAB PO SCH ×2 (10:51→21:33)
[2022-05-08] MEDS: metOLazone 5 MG TAB PO SCH (10:52)
[2022-05-08] MEDS: ENOXAPARIN SOD 100 MG/1 ML SYRINGE SC SCH ×2 (10:54→21:34)
[2022-05-08] MEDS: LIDOCAINE 4MG/ML IV SOLN 500 ML IV SCH (13:30)
[2022-05-08] MEDS: ATORVASTATIN 20 MG TAB PO SCH (21:34)
[2022-05-09] VITALS (12 sets, daily range): BP systolic 98–130; BP diastolic 49–79
[2022-05-09] MEDS: LIDOCAINE 4MG/ML IV SOLN 500 ML IV SCH (01:02)
[2022-05-09] MEDS: BUMETANIDE 2.5mg/10ml (0.25 mg/ml) INJ IV SCH ×2 (06:55→17:14)
[2022-05-09] MEDS: cefTRIAXone 1GM/50ML D5W 50 ML IV SCH (08:39)
[2022-05-09] MEDS: AZITHROMYCIN 500MG/ 250ML 250 ML IV SCH (09:41)
[2022-05-09] MEDS: metOLazone 5 MG TAB PO SCH (09:42)
[2022-05-09] MEDS: ASPirin 325 MG TAB PO SCH (09:42)
[2022-05-09] MEDS: CARVEDILOL 3.125 MG TAB PO SCH ×2 (09:42→22:44)
[2022-05-09] MEDS: ENOXAPARIN SOD 100 MG/1 ML SYRINGE SC SCH ×2 (09:42→22:44)
[2022-05-09] MEDS: DOCUSATE SOD 100 MG CAP PO SCH (10:00)
[2022-05-09 16:04] LABS: BUN/Creatinine Ratio 27.8; Calcium 8.7 mg/dL (8.5-10.1)
[2022-05-09] MEDS: ATORVASTATIN 20 MG TAB PO SCH (22:43)
[2022-05-10] VITALS (22 sets, daily range): BP systolic 98–131; BP diastolic 24–85
[2022-05-10 05:51] LABS: Basophils # (auto) 0 10 ^3/uL (0-0.2); Eosinophils # (auto) 0 10 ^3/uL (0-0.8); Lymphocytes # (auto) 1.6 10 ^3/uL (0.4-5.4); Red Cell Distribution Width 17.3 % (11.8-14.3)
[2022-05-10 05:54] LABS: Basophils % (auto) 0.5 % (0.0-2.0); Eosinophils % (auto) 0.2 % (0.0-7.0); Hematocrit 53.5 % (41.0-53.0); Lymphocytes % (auto) 20.4 % (10.0-50.0); Mean Corpuscular Hemoglobin 30.3 pg (28.0-32.0); Mean Corpuscular Hgb Conc. 33.6 g/dL (32.0-36.0); Mean Corpuscular Volume 90.3 fL (80.0-100.0); Monocytes % (auto) 12.6 % (0.0-12.0); Neutrophils # (auto) 5.3 10 ^3/uL (1.6-8.6); Neutrophils % (auto) 66.3 % (37.0-80.0); Nucleated Red Blood Cells % 0.2 %; Red Blood Cells 5.93 10^6/uL (4.5-5.90); White Blood Cell 7.9 10^3/uL (4.4-10.8)
[2022-05-10 06:04] LABS: BUN/Creatinine Ratio 25.8; Calcium 8.9 mg/dL (8.5-10.1); Magnesium 2.5 mg/dL (1.6-2.6); Potassium 3.3 mmol/L (3.5-5.1)
[2022-05-10] MEDS: BUMETANIDE 2.5mg/10ml (0.25 mg/ml) INJ IV SCH ×2 (07:11→18:00)
[2022-05-10] MEDS: cefTRIAXone 1GM/50ML D5W 50 ML IV SCH (09:00)
[2022-05-10] MEDS: CARVEDILOL 3.125 MG TAB PO SCH ×2 (10:32→21:50)
[2022-05-10] MEDS ORDERED: POTASSIUM CHL 20 Meq TABLET PO ONE (10:45)
[2022-05-10] MEDS ORDERED: LORazepam 2MG/ML-1ML VIAL IV ONE (11:00)
[2022-05-10] MEDS ORDERED: ALPRAZolam 0.5 MG TAB PO PRN (11:00)
[2022-05-10] MEDS: DOCUSATE SOD 100 MG CAP PO SCH (11:16)
[2022-05-10] MEDS: metOLazone 5 MG TAB PO SCH (11:16)
[2022-05-10] MEDS: ASPirin 325 MG TAB PO SCH (11:17)
[2022-05-10] MEDS: AZITHROMYCIN 500MG/ 250ML 250 ML IV SCH (11:17)
[2022-05-10] MEDS: LIDOCAINE 4MG/ML IV SOLN 500 ML IV SCH (11:17)
[2022-05-10] MEDS: ENOXAPARIN SOD 100 MG/1 ML SYRINGE SC SCH (11:18)
[2022-05-10] MEDS: ALPRAZolam 0.25 MG TAB PO PRN ×2 (15:35→21:49)
[2022-05-10] MEDS: ATORVASTATIN 20 MG TAB PO SCH (21:49)
[2022-05-11] VITALS (19 sets, daily range): BP systolic 91–143; BP diastolic 10–87
[2022-05-11] MEDS: BUMETANIDE 2.5mg/10ml (0.25 mg/ml) INJ IV SCH ×2 (07:39→17:12)
[2022-05-11 08:05] LABS: Red Cell Distribution Width 16.7 % (11.8-14.3)
[2022-05-11 08:07] LABS: Hematocrit 55.6 % (41.0-53.0); Hemoglobin 18.5 g/dL (13.5-17.5); Mean Corpuscular Hemoglobin 29.9 pg (28.0-32.0); Mean Corpuscular Hgb Conc. 33.3 g/dL (32.0-36.0); Mean Corpuscular Volume 89.9 fL (80.0-100.0); Red Blood Cells 6.19 10^6/uL (4.5-5.90); White Blood Cell 6.7 10^3/uL (4.4-10.8)
[2022-05-11] MEDS: ALPRAZolam 0.25 MG TAB PO PRN ×2 (08:14→20:07)
[2022-05-11 08:19] LABS: INR 1.35 (0.9-1.15); Partial Thromboplastin Time 32.7 sec (24.6-33.4)
[2022-05-11 08:21] LABS: Calcium 9.3 mg/dL (8.5-10.1); Potassium 3.2 mmol/L (3.5-5.1)
[2022-05-11 08:27] LABS: Albumin 3.3 g/dL (3.4-5.0); BUN/Creatinine Ratio 34.9; Bilirubin, Total 2.8 mg/dL (0.2-1.0); Total Protein 8.4 g/dL (6.4-8.2)
[2022-05-11] MEDS: cefTRIAXone 1GM/50ML D5W 50 ML IV SCH (09:21)
[2022-05-11] MEDS: ASPirin 325 MG TAB PO SCH (09:22)
[2022-05-11] MEDS: metOLazone 5 MG TAB PO SCH (09:23)
[2022-05-11] MEDS: POTASSIUM CHL 20 Meq TABLET PO SCH ×2 (09:23→21:58)
[2022-05-11] MEDS: CARVEDILOL 3.125 MG TAB PO SCH ×2 (09:24→21:57)
[2022-05-11 09:59] LABS: Band Neutrophils % (manual) 0; Basophils % (manual) 0 (0.0-2.0); Blast Cells 0; Metamyelocytes % 0; Myelocytes % 0; Promyelocytes % 0; Reactive Lymphocytes 0
[2022-05-11] MEDS: AZITHROMYCIN 500MG/ 250ML 250 ML IV SCH (10:00)
[2022-05-11] MEDS: DOCUSATE SOD 100 MG CAP PO SCH (10:00)
[2022-05-11] MEDS: LIDOCAINE 4MG/ML IV SOLN 500 ML IV SCH ×2 (11:15→23:18)
[2022-05-11 11:26] LABS: Eosinophils % (manual) 1 (0-7); Lymphocytes % (manual) 36 (10.0-50.0); Monocytes % (manual) 7 (0-12)
[2022-05-11] MEDS ORDERED: DEXTROSE (50%) 50ML SYRG IV PRN (14:30)
[2022-05-11] MEDS: ACCU-CHEK COMFORT CURVE STRIP VI SCH ×2 (17:12→22:00)
[2022-05-11] MEDS: InsuLIN REG 1unit/0.01ml Soln (100units/ml) SC SCH ×2 (17:12→22:00)
[2022-05-11] MEDS: ATORVASTATIN 20 MG TAB PO SCH (21:57)
[2022-05-12] VITALS (35 sets, daily range): BP systolic 86–157; BP diastolic 43–90
[2022-05-12 05:52] LABS: Potassium 3.6 mmol/L (3.5-5.1)
[2022-05-12 06:03] LABS: Albumin 3.4 g/dL (3.4-5.0); BUN/Creatinine Ratio 36.7; Bilirubin, Total 2.2 mg/dL (0.2-1.0); Calcium 9.6 mg/dL (8.5-10.1); Total Protein 8.5 g/dL (6.4-8.2)
[2022-05-12] MEDS: BUMETANIDE 2.5mg/10ml (0.25 mg/ml) INJ IV SCH ×2 (06:17→18:00)
[2022-05-12] MEDS: InsuLIN REG 1unit/0.01ml Soln (100units/ml) SC SCH ×4 (06:50→22:22)
[2022-05-12] MEDS: ACCU-CHEK COMFORT CURVE STRIP VI SCH ×4 (06:50→22:18)
[2022-05-12] MEDS: cefTRIAXone 1GM/50ML D5W 50 ML IV SCH (08:33)
[2022-05-12] MEDS: ALPRAZolam 0.25 MG TAB PO PRN ×2 (08:44→21:56)
[2022-05-12] MEDS: ASPirin 325 MG TAB PO SCH (08:44)
[2022-05-12] MEDS: CARVEDILOL 3.125 MG TAB PO SCH ×2 (08:45→21:55)
[2022-05-12] MEDS: metOLazone 5 MG TAB PO SCH (08:45)
[2022-05-12] MEDS: AZITHROMYCIN 500MG/ 250ML 250 ML IV SCH (08:46)
[2022-05-12] MEDS: POTASSIUM CHL 20 Meq TABLET PO SCH ×2 (08:46→21:55)
[2022-05-12] MEDS: DOCUSATE SOD 100 MG CAP PO SCH (08:46)
[2022-05-12] MEDS: LIDOCAINE 4MG/ML IV SOLN 500 ML IV SCH (10:34)
[2022-05-12] MEDS ORDERED: SODIUM CHL 0.9% 0 ML ONE (18:12)
[2022-05-12] MEDS ORDERED: ANGIOMAX 250 MG VIAL IV ONE (18:12)
[2022-05-12] MEDS ORDERED: fentaNYL CITRATE 100 MCG/2 ML VL ONE (18:12)
[2022-05-12] MEDS ORDERED: MIDAZOLAM HCL 2MG/2ML 2ml VIAL (1mg/ml) ONE (18:12)
[2022-05-12] MEDS ORDERED: LIDOCAINE 2%HCL (LOCAL ANESTH.) INJ 10ml MDV ONE (18:13)
[2022-05-12] MEDS ORDERED: ADENOSINE 6 MG/2 ML INJ IV ONE ×4 (19:00→19:02)
[2022-05-12] MEDS: ATORVASTATIN 20 MG TAB PO SCH (22:12)
[2022-05-13] VITALS (37 sets, daily range): BP systolic 101–149; BP diastolic 40–84
[2022-05-13 06:02] LABS: Potassium 3.8 mmol/L (3.5-5.1)
[2022-05-13] MEDS: BUMETANIDE 2.5mg/10ml (0.25 mg/ml) INJ IV SCH ×2 (06:02→17:23)
[2022-05-13 06:09] LABS: Albumin 3.2 g/dL (3.4-5.0); BUN/Creatinine Ratio 34.4; Bilirubin, Total 1.9 mg/dL (0.2-1.0); Calcium 9.2 mg/dL (8.5-10.1); Total Protein 8.1 g/dL (6.4-8.2)
[2022-05-13] MEDS: InsuLIN REG 1unit/0.01ml Soln (100units/ml) SC SCH ×4 (06:45→22:00)
[2022-05-13] MEDS: ACCU-CHEK COMFORT CURVE STRIP VI SCH ×4 (06:45→22:00)
[2022-05-13] MEDS: LIDOCAINE 4MG/ML IV SOLN 500 ML IV SCH (06:56)
[2022-05-13] MEDS: cefTRIAXone 1GM/50ML D5W 50 ML IV SCH (09:24)
[2022-05-13] MEDS: AZITHROMYCIN 500MG/ 250ML 250 ML IV SCH (10:11)
[2022-05-13] MEDS: metOLazone 5 MG TAB PO SCH (10:11)
[2022-05-13] MEDS: DOCUSATE SOD 100 MG CAP PO SCH (10:12)
[2022-05-13] MEDS: CARVEDILOL 3.125 MG TAB PO SCH ×2 (10:12→22:35)
[2022-05-13] MEDS: POTASSIUM CHL 20 Meq TABLET PO SCH ×2 (10:12→22:36)
[2022-05-13] MEDS: ASPirin 325 MG TAB PO SCH (10:15)
[2022-05-13] MEDS: ATORVASTATIN 20 MG TAB PO SCH (22:36)
[2022-05-14] VITALS (18 sets, daily range): BP systolic 108–139; BP diastolic 52–93
[2022-05-14] MEDS: BUMETANIDE 2.5mg/10ml (0.25 mg/ml) INJ IV SCH ×2 (06:01→18:00)
[2022-05-14 06:30] LABS: Potassium 3.6 mmol/L (3.5-5.1)
[2022-05-14 06:41] LABS: BUN/Creatinine Ratio 36.8
[2022-05-14 06:42] LABS: Albumin 3.3 g/dL (3.4-5.0); Bilirubin, Total 1.8 mg/dL (0.2-1.0); Calcium 9.3 mg/dL (8.5-10.1); Total Protein 8.2 g/dL (6.4-8.2)
[2022-05-14] MEDS: InsuLIN REG 1unit/0.01ml Soln (100units/ml) SC SCH ×4 (06:55→21:47)
[2022-05-14] MEDS: ACCU-CHEK COMFORT CURVE STRIP VI SCH ×4 (06:56→21:25)
[2022-05-14] MEDS: POTASSIUM CHL 20 Meq TABLET PO SCH ×2 (08:53→21:23)
[2022-05-14] MEDS: cefTRIAXone 1GM/50ML D5W 50 ML IV SCH (09:27)
[2022-05-14] MEDS: DOCUSATE SOD 100 MG CAP PO SCH (09:28)
[2022-05-14] MEDS: metOLazone 5 MG TAB PO SCH (09:28)
[2022-05-14] MEDS: CARVEDILOL 3.125 MG TAB PO SCH ×2 (09:30→21:24)
[2022-05-14] MEDS: ASPirin 325 MG TAB PO SCH (09:30)
[2022-05-14] MEDS: AZITHROMYCIN 500MG/ 250ML 250 ML IV SCH (10:00)
[2022-05-14] MEDS ORDERED: POTASSIUM CHL 20MEQ/100ML 100 ML IV ONE (11:00)
[2022-05-14] MEDS ORDERED: MIDAZOLAM HCL 2MG/2ML 2ml VIAL (1mg/ml) ONE ×2 (15:41→16:46)
[2022-05-14] MEDS ORDERED: fentaNYL CITRATE 100 MCG/2 ML VL ONE (15:41)
[2022-05-14] MEDS ORDERED: VANCOMYCIN HCL 1000 MG VL ONE ×2 (15:41→15:52)
[2022-05-14] MEDS ORDERED: VANCOMYCIN 1GM/250ML 250 ML IV ONE (15:42)
[2022-05-14] MEDS ORDERED: LIDOCAINE 2%HCL (LOCAL ANESTH.) INJ 10ml MDV ONE ×2 (15:51→16:47)
[2022-05-14] MEDS ORDERED: IODIXANOL 320MG/ML 100ML BTL IV ONE (16:23)
[2022-05-14] MEDS ORDERED: VANCOMYCIN PER PHARMACY 0 MG IV SCH (19:30)
[2022-05-14] MEDS: ATORVASTATIN 20 MG TAB PO SCH (21:24)
[2022-05-14] MEDS: VANCOMYCIN 1GM/250ML 250 ML IV SCH (21:25)
[2022-05-15] VITALS (19 sets, daily range): BP systolic 103–138; BP diastolic 43–72
[2022-05-15] MEDS: VANCOMYCIN 1GM/250ML 250 ML IV SCH ×3 (04:39→19:48)
[2022-05-15] MEDS: BUMETANIDE 2.5mg/10ml (0.25 mg/ml) INJ IV SCH ×2 (06:19→18:00)
[2022-05-15] MEDS: ACCU-CHEK COMFORT CURVE STRIP VI SCH ×4 (06:20→21:48)
[2022-05-15] MEDS: InsuLIN REG 1unit/0.01ml Soln (100units/ml) SC SCH ×4 (06:22→21:55)
[2022-05-15 06:35] LABS: Potassium 3.4 mmol/L (3.5-5.1)
[2022-05-15 06:46] LABS: Calcium 9.7 mg/dL (8.5-10.1)
[2022-05-15] MEDS ORDERED: HYDROcodone-ACET 10/325MG TAB PO PRN (08:45)
[2022-05-15] MEDS: POTASSIUM CHL 20MEQ/100ML 100 ML IV SCH ×2 (10:00→16:17)
[2022-05-15] MEDS: POTASSIUM CHL 20 Meq TABLET PO SCH ×2 (10:14→21:54)
[2022-05-15] MEDS: DOCUSATE SOD 100 MG CAP PO SCH (10:15)
[2022-05-15] MEDS: CARVEDILOL 3.125 MG TAB PO SCH ×2 (10:15→21:53)
[2022-05-15] MEDS: metOLazone 5 MG TAB PO SCH (10:15)
[2022-05-15] MEDS: cefTRIAXone 1GM/50ML D5W 50 ML IV SCH (10:18)
[2022-05-15] MEDS: ASPirin 325 MG TAB PO SCH (13:42)
[2022-05-15] MEDS ORDERED: POTASSIUM CHL 20MEQ/100ML 100 ML IV SCH (16:15)
[2022-05-15] MEDS: ATORVASTATIN 20 MG TAB PO SCH (21:54)
[2022-05-16] MEDS: InsuLIN REG 1unit/0.01ml Soln (100units/ml) SC SCH ×3 (05:26→16:56)
[2022-05-16] MEDS: BUMETANIDE 2.5mg/10ml (0.25 mg/ml) INJ IV SCH ×2 (05:26→18:01)
[2022-05-16] MEDS: ACCU-CHEK COMFORT CURVE STRIP VI SCH ×3 (05:26→16:45)
[2022-05-16 07:01] LABS: Potassium 3.4 mmol/L (3.5-5.1)
[2022-05-16 07:05] LABS: BUN/Creatinine Ratio 35.1; Calcium 9.1 mg/dL (8.5-10.1)
[2022-05-16] MEDS: POTASSIUM CHL 20 Meq TABLET PO SCH (08:58)
[2022-05-16] MEDS: DOCUSATE SOD 100 MG CAP PO SCH (08:58)
[2022-05-16] MEDS: ASPirin 325 MG TAB PO SCH (08:59)
[2022-05-16] MEDS: CARVEDILOL 3.125 MG TAB PO SCH (08:59)
[2022-05-16] MEDS: metOLazone 5 MG TAB PO SCH (08:59)
[2022-05-16 09:00] VITALS: BP 105/60
[2022-05-16] MEDS: VANCOMYCIN 1GM/250ML 250 ML IV SCH ×2 (10:30→18:00)
[2022-05-16] MEDS ORDERED: CLOP75TA28 PO (11:40)
[2022-05-16] MEDS ORDERED: DOXY-332 PO (11:40)
[2022-05-16] MEDS ORDERED: ATOR20TA50 PO (11:40)
[2022-05-16] MEDS ORDERED: POTA1TAB61 PO (11:40)
[2022-05-16] MEDS ORDERED: HYDR-4902 PO (11:55)
[2022-05-16 13:00] VITALS: BP 115/74
[2022-05-16 14:54] VITALS: BP 115/74
[2022-05-16 16:54] VITALS: BP 111/66
== END 2022-05-16 20:30 | disposition home or self-care (01) | DRG 179 ==
LOC: ER 09:25 → TELE 12:40 → DOU IN ICU 20:00 → TELE-WESTW 05-15 18:16
PROVIDERS: ADMIT Nurse Practitioner Family; ATTEND Internal Medicine
PROC: 4A023N8 Measurement of Cardiac Sampling and Pressure, Bilateral, Percutaneous Approach (ICD-10-PCS; 2022-05-12)
PROC: B2111ZZ Fluoroscopy of Multiple Coronary Arteries using Low Osmolar Contrast (ICD-10-PCS; 2022-05-12)
PROC: B2151ZZ Fluoroscopy of Left Heart using Low Osmolar Contrast (ICD-10-PCS; 2022-05-12)
PROC: B41F1ZZ Fluoroscopy of Right Lower Extremity Arteries using Low Osmolar Contrast (ICD-10-PCS; 2022-05-12)
PROC: 0JH608Z Insertion of Defibrillator Generator into Chest Subcutaneous Tissue and Fascia, Open Approach (ICD-10-PCS; principal; 2022-05-14)
PROC: 02H63KZ Insertion of Defibrillator Lead into Right Atrium, Percutaneous Approach (ICD-10-PCS; 2022-05-14)
PROC: 02HK3KZ Insertion of Defibrillator Lead into Right Ventricle, Percutaneous Approach (ICD-10-PCS; 2022-05-14)
PROC: B5171ZZ Fluoroscopy of Left Subclavian Vein using Low Osmolar Contrast (ICD-10-PCS; 2022-05-14)
DX: I21.4 Non-ST elevation (NSTEMI) myocardial infarction (principal); J96.21 Acute and chronic respiratory failure with hypoxia; R57.9 Shock, unspecified; I50.43 Acute on chronic combined systolic (congestive) and diastolic (congestive) heart failure; E87.4 Mixed disorder of acid-base balance; J18.9 Pneumonia, unspecified organism; I11.0 Hypertensive heart disease with heart failure; I42.1 Obstructive hypertrophic cardiomyopathy; E66.2 Morbid (severe) obesity with alveolar hypoventilation; I47.20 Ventricular tachycardia, unspecified; I42.2 Other hypertrophic cardiomyopathy; E11.65 Type 2 diabetes mellitus with hyperglycemia; M10.9 Gout, unspecified; I49.9 Cardiac arrhythmia, unspecified; R79.89 Other specified abnormal findings of blood chemistry; E78.5 Hyperlipidemia, unspecified; K21.9 Gastro-esophageal reflux disease without esophagitis; J98.11 Atelectasis; E87.6 Hypokalemia; Z20.822 Contact with and (suspected) exposure to COVID-19; Z79.899 Other long term (current) drug therapy; Z82.49 Family history of ischemic heart disease and other diseases of the circulatory system; Z83.3 Family history of diabetes mellitus; Z87.891 Personal history of nicotine dependence; Z68.41 Body mass index [BMI] 40.0-44.9, adult; Z71.3 Dietary counseling and surveillance; N17.9 Acute kidney failure, unspecified
CPT/HCPCS: 36415; 36600; 71045; 80048; 80053; 80061; 80202; 80307; 81001; 82570; 82805; 82962; 83036; 83605; 83690; 83735; 83880; 84100; 84132; 84300; 84484; 85007; 85025; 85027; 85610; 85730; 86850; 86900; 86901; 87040; 87081; 87426; 93005; 93306; 96365; 96366; 96367; 96372; 96375; 99152; 99153; 99291; C1751; G0378; J0153; J0696; J1815; J2001; J2250; J3480; J7060; Q9967

== ENCOUNTER 2022-07-04 08:16 | Inpatient (IN) | payer MEDICAID ==
[~2022-07-04] VITALS: Ht 170.2 cm; Wt 118.1 kg
[~2022-07-04 08:16] MED LIST changes: +CLOP75TA28 PO; +DOXY-332 PO; +HYDR-4902 PO; +POTA1TAB61 PO
[2022-07-04] MEDS ORDERED: SODIUM CHLORIDE 0.9% 1,000 ML IV ONE ×2 (08:45→12:00)
[2022-07-04] MEDS ORDERED: Surgicel PA 2X3 INCH TOP ONE (08:45)
[2022-07-04 09:08] LABS: Basophils # (auto) 0.1 10 ^3/uL (0-0.2); Basophils % (auto) 1.3 % (0.0-2.0); Eosinophils # (auto) 0.7 10 ^3/uL (0-0.8); Eosinophils % (auto) 8.8 % (0.0-7.0); Hematocrit 48.3 % (41.0-53.0); Hemoglobin 16.3 g/dL (13.5-17.5); Lymphocytes # (auto) 2.4 10 ^3/uL (0.4-5.4); Lymphocytes % (auto) 29.8 % (10.0-50.0); Mean Corpuscular Hemoglobin 30.2 pg (28.0-32.0); Mean Corpuscular Hgb Conc. 33.7 g/dL (32.0-36.0); Mean Corpuscular Volume 89.7 fL (80.0-100.0); Monocytes % (auto) 12.4 % (0.0-12.0); Neutrophils # (auto) 3.8 10 ^3/uL (1.6-8.6); Neutrophils % (auto) 47.7 % (37.0-80.0); Nucleated Red Blood Cells % 0.1 %; Red Blood Cells 5.39 10^6/uL (4.5-5.90); Red Cell Distribution Width 16.7 % (11.8-14.3)
[2022-07-04 09:29] LABS: INR 1.23 (0.9-1.15); Partial Thromboplastin Time 27.9 sec (24.6-33.4)
[2022-07-04 09:30] LABS: BUN/Creatinine Ratio 53.5; Calcium 9.5 mg/dL (8.5-10.1); Magnesium 2.4 mg/dL (1.6-2.6); Potassium 4.1 mmol/L (3.5-5.1)
[2022-07-04] MEDS ORDERED: HYDROcodone-ACET 5/325MG TAB PO ONE (17:15)
[2022-07-04] MEDS ORDERED: HYDR-4902 PO (18:21)
[2022-07-04] MEDS ORDERED: MORPHINE SULFATE INJ 2 MG/ml SYRG IV ONE (18:30)
[2022-07-04 19:11] VITALS: BP 94/70
[2022-07-04] MEDS ORDERED: DOCUSATE SOD 100 MG CAP PO PRN (19:15)
[2022-07-04] MEDS ORDERED: MORPHINE SULFATE INJ 2 MG/ml SYRG IV PRN (19:15)
[2022-07-04] MEDS ORDERED: ONDANSETRON HCL 4 MG/2 ML VIAL IV PRN (19:15)
[2022-07-04] MEDS ORDERED: ALBUTEROL SULF HFA 90MCG INH 200DOSE IN PRN (19:15)
[2022-07-04] MEDS ORDERED: BUMETANIDE 1 MG TAB PO SCH (22:00)
[2022-07-04] MEDS ORDERED: METOPROLOL TARTRATE 25 MG TAB PO SCH (22:00)
[2022-07-04] MEDS ORDERED: POTASSIUM CHL 10 Meq TABLET PO SCH (22:00)
[2022-07-04] MEDS ORDERED: SACUBITRIL-VALSARTAN 24mg/26mg TAB PO SCH (22:00)
[2022-07-05] MEDS ORDERED: ATORVASTATIN 20 MG TAB PO SCH (10:00)
[2022-07-05] MEDS ORDERED: ALLOPURINOL 100 MG TAB PO SCH (10:00)
== END 2022-07-04 19:30 | disposition home or self-care (01) | DRG 115 ==
LOC: ER 08:18 → OVERFLOW 19:09
PROVIDERS: ADMIT Nurse Practitioner Family; ATTEND Nurse Practitioner Family
PROC: 2Y41X5Z Packing of Nasal Region using Packing Material (ICD-10-PCS; principal; 2022-07-04)
DX: R04.0 Epistaxis (principal); N17.9 Acute kidney failure, unspecified; D69.6 Thrombocytopenia, unspecified; I13.0 Hypertensive heart and chronic kidney disease with heart failure and stage 1 through stage 4 chronic kidney disease, or unspecified chronic kidney disease; E87.1 Hypo-osmolality and hyponatremia; I50.9 Heart failure, unspecified; I95.9 Hypotension, unspecified; R74.01 Elevation of levels of liver transaminase levels; N18.9 Chronic kidney disease, unspecified; M10.9 Gout, unspecified; Z83.3 Family history of diabetes mellitus; Z82.49 Family history of ischemic heart disease and other diseases of the circulatory system; Z95.810 Presence of automatic (implantable) cardiac defibrillator
CPT/HCPCS: 30901; 36415; 80053; 83735; 85025; 85610; 85730; 96360; G0378

== ENCOUNTER 2022-07-05 09:29 | Inpatient (IN) | payer MEDICAID ==
[~2022-07-05] VITALS: Ht 170.2 cm; Wt 119.2 kg
[2022-07-05 10:15] LABS: Basophils # (auto) 0 10 ^3/uL (0-0.2); Basophils % (auto) 0.6 % (0.0-2.0); Eosinophils # (auto) 0.1 10 ^3/uL (0-0.8); Eosinophils % (auto) 1.8 % (0.0-7.0); Hematocrit 42.8 % (41.0-53.0); Hemoglobin 14.2 g/dL (13.5-17.5); Lymphocytes # (auto) 1.9 10 ^3/uL (0.4-5.4); Lymphocytes % (auto) 28.3 % (10.0-50.0); Mean Corpuscular Hgb Conc. 33.2 g/dL (32.0-36.0); Mean Corpuscular Volume 90.3 fL (80.0-100.0); Monocytes # (auto) 0.6 10 ^3/uL (0-1.3); Monocytes % (auto) 9.8 % (0.0-12.0); Neutrophils # (auto) 3.9 10 ^3/uL (1.6-8.6); Neutrophils % (auto) 59.5 % (37.0-80.0); Nucleated Red Blood Cells % 0.1 %; Red Blood Cells 4.74 10^6/uL (4.5-5.90); Red Cell Distribution Width 16.8 % (11.8-14.3); White Blood Cell 6.6 10^3/uL (4.4-10.8)
[2022-07-05 10:24] LABS: Albumin 4.5 g/dL (3.4-5.0); Calcium 10.1 mg/dL (8.5-10.1); Potassium 3.6 mmol/L (3.5-5.1)
[2022-07-05 10:28] LABS: BUN/Creatinine Ratio 46.1; Bilirubin, Total 1.8 mg/dL (0.2-1.0); Total Protein 7.7 g/dL (6.4-8.2)
[2022-07-05] MEDS ORDERED: SODIUM CHLORIDE 0.9% 1,000 ML IV ONE (10:45)
[2022-07-05] MEDS ORDERED: AMIODARONE HCL 150 MG in D5W 5% 100 ML IV ONE (11:00)
[2022-07-05 11:12] LABS: INR 1.18 (0.9-1.15); Partial Thromboplastin Time 25.3 sec (24.6-33.4)
[2022-07-05] MEDS ORDERED: AMIODARONE 450mg/250ml AE 250 ML IV SCH (11:15)
[2022-07-05 12:51] LABS: Urine WBC None Seen /hpf (0 - 3)
[2022-07-05 13:08] LABS: Urine Bacteria NONE SEEN /hpf (None Seen); Urine Blood Negative /uL (Negative); Urine Specific Gravity 1.014 (1.001-1.035)
[2022-07-05] MEDS ORDERED: NITROGLYCERIN 0.4 MG SL TAB SL PRN (14:00)
[2022-07-05] MEDS ORDERED: ALBUTEROL SULF 2.5 MG/0.5ML(0.5%) NEB SOLN NEB PRN (14:00)
[2022-07-05] MEDS ORDERED: DEXTROSE (50%) 50ML SYRG IV PRN (14:00)
[2022-07-05] MEDS ORDERED: MORPHINE SULFATE INJ 2 MG/ml SYRG IV PRN (14:00)
[2022-07-05] MEDS ORDERED: ACETAMINOPHEN 325 MG TAB PO PRN (14:00)
[2022-07-05] MEDS ORDERED: ENOXAPARIN SOD 40 MG/0.4 ML SYRINGE SC ONE (14:15)
[2022-07-05 14:26] VITALS: BP 102/61
[2022-07-05] MEDS: SODIUM CHLOR 0.9% PF (SALINE LOCK) 10ML VIAL/SYR IV SCH ×2 (15:54→22:45)
[2022-07-05] MEDS: ACCU-CHEK COMFORT CURVE STRIP VI SCH ×2 (17:00→22:50)
[2022-07-05] MEDS: InsuLIN REG 1unit/0.01ml Soln (100units/ml) SC SCH ×2 (17:32→22:57)
[2022-07-05] MEDS: AMIODARONE 450mg/250ml AE 250 ML IV SCH (18:31)
[2022-07-05] MEDS: SACUBITRIL-VALSARTAN 24mg/26mg TAB PO SCH (22:00)
[2022-07-05] MEDS: POTASSIUM CHL 10 Meq TABLET PO SCH (22:44)
[2022-07-05] MEDS: ASCORBIC ACID 500 MG TAB PO SCH (22:45)
[2022-07-05] MEDS: METOPROLOL TARTRATE 25 MG TAB PO SCH (22:46)
[2022-07-05] MEDS: BUMETANIDE 1 MG TAB PO SCH (22:46)
[2022-07-06 05:00] VITALS: BP 100/55
[2022-07-06] MEDS: SODIUM CHLOR 0.9% PF (SALINE LOCK) 10ML VIAL/SYR IV SCH ×3 (05:19→20:49)
[2022-07-06] MEDS: ACCU-CHEK COMFORT CURVE STRIP VI SCH ×4 (05:19→22:27)
[2022-07-06] MEDS: InsuLIN REG 1unit/0.01ml Soln (100units/ml) SC SCH ×4 (05:25→22:29)
[2022-07-06 07:46] LABS: Basophils # (auto) 0.1 10 ^3/uL (0-0.2); Eosinophils # (auto) 0.7 10 ^3/uL (0-0.8); Eosinophils % (auto) 8.1 % (0.0-7.0); Hematocrit 41.3 % (41.0-53.0); Hemoglobin 14.1 g/dL (13.5-17.5); Lymphocytes # (auto) 2.2 10 ^3/uL (0.4-5.4); Lymphocytes % (auto) 26.4 % (10.0-50.0); Mean Corpuscular Hemoglobin 30.5 pg (28.0-32.0); Mean Corpuscular Hgb Conc. 34.1 g/dL (32.0-36.0); Mean Corpuscular Volume 89.4 fL (80.0-100.0); Monocytes # (auto) 0.8 10 ^3/uL (0-1.3); Monocytes % (auto) 9.6 % (0.0-12.0); Neutrophils # (auto) 4.5 10 ^3/uL (1.6-8.6); Neutrophils % (auto) 54.9 % (37.0-80.0); Nucleated Red Blood Cells % 0.1 %; Red Blood Cells 4.62 10^6/uL (4.5-5.90); Red Cell Distribution Width 16.9 % (11.8-14.3); White Blood Cell 8.3 10^3/uL (4.4-10.8)
[2022-07-06 08:00] VITALS: BP 113/72
[2022-07-06 08:16] LABS: Albumin 4.2 g/dL (3.4-5.0); BUN/Creatinine Ratio 35.5; Potassium 3.7 mmol/L (3.5-5.1)
[2022-07-06 08:18] LABS: Bilirubin, Total 1.5 mg/dL (0.2-1.0); Total Protein 7.8 g/dL (6.4-8.2)
[2022-07-06 09:00] VITALS: BP 113/72
[2022-07-06] MEDS: METOPROLOL TARTRATE 25 MG TAB PO SCH ×2 (09:33→20:48)
[2022-07-06] MEDS: POTASSIUM CHL 10 Meq TABLET PO SCH ×2 (09:33→20:48)
[2022-07-06] MEDS: ALLOPURINOL 100 MG TAB PO SCH (09:34)
[2022-07-06] MEDS: ATORVASTATIN 20 MG TAB PO SCH (09:34)
[2022-07-06] MEDS: ZINC SULFATE 220mg CAP or TAB PO SCH (09:34)
[2022-07-06] MEDS: ASCORBIC ACID 500 MG TAB PO SCH ×2 (09:35→20:47)
[2022-07-06] MEDS: MULTIPLE VITAMIN TAB PO SCH (09:35)
[2022-07-06] MEDS: ENOXAPARIN SOD 40 MG/0.4 ML SYRINGE SC SCH ×2 (09:36→20:48)
[2022-07-06] MEDS: [UNRECOGNIZED DRUG - OTHER] XX SCH (09:40)
[2022-07-06] MEDS: BUMETANIDE 1 MG TAB PO SCH ×2 (09:41→20:47)
[2022-07-06] MEDS: SACUBITRIL-VALSARTAN 24mg/26mg TAB PO SCH ×2 (09:41→21:01)
[2022-07-06] MEDS: AMIODARONE 450mg/250ml AE 250 ML IV SCH (11:32)
[2022-07-06 13:00] VITALS: BP 109/76
[2022-07-06 17:00] VITALS: BP 101/62
[2022-07-06 18:13] LABS: Alcohol, Urine < 3.0 mg/dL (0-10); Amphetamine Screen, Urine NEGATIVE (NEGATIVE); Barbiturate Scree,Urine NEGATIVE (NEGATIVE); Benzodiazephine Screen, Urine NEGATIVE (NEGATIVE); Cannabinoid Screen, Urine NEGATIVE (NEGATIVE); Cocaine Screen, Urine NEGATIVE (NEGATIVE); Opiate Scree,Urine NEGATIVE (NEGATIVE); Phencyclidine Screen, Urine NEGATIVE (NEGATIVE)
[2022-07-06] MEDS: AMIODARONE HCL 200 MG TAB PO SCH (20:48)
[2022-07-06 22:00] VITALS: BP 112/66
[2022-07-07 05:00] VITALS: BP 105/55
[2022-07-07] MEDS: SODIUM CHLOR 0.9% PF (SALINE LOCK) 10ML VIAL/SYR IV SCH ×3 (06:25→21:49)
[2022-07-07] MEDS: ACCU-CHEK COMFORT CURVE STRIP VI SCH ×4 (06:26→21:50)
[2022-07-07] MEDS: InsuLIN REG 1unit/0.01ml Soln (100units/ml) SC SCH ×4 (06:42→21:52)
[2022-07-07 09:00] VITALS: BP 112/64
[2022-07-07] MEDS: SACUBITRIL-VALSARTAN 24mg/26mg TAB PO SCH ×2 (09:14→21:45)
[2022-07-07] MEDS: POTASSIUM CHL 10 Meq TABLET PO SCH (09:15)
[2022-07-07] MEDS: ZINC SULFATE 220mg CAP or TAB PO SCH (09:16)
[2022-07-07] MEDS: BUMETANIDE 1 MG TAB PO SCH (09:17)
[2022-07-07] MEDS: AMIODARONE HCL 200 MG TAB PO SCH ×2 (09:18→21:45)
[2022-07-07] MEDS: METOPROLOL TARTRATE 25 MG TAB PO SCH ×2 (09:18→21:45)
[2022-07-07] MEDS: ALLOPURINOL 100 MG TAB PO SCH (09:19)
[2022-07-07] MEDS: ATORVASTATIN 20 MG TAB PO SCH (09:19)
[2022-07-07] MEDS: ASCORBIC ACID 500 MG TAB PO SCH (09:19)
[2022-07-07] MEDS: ENOXAPARIN SOD 40 MG/0.4 ML SYRINGE SC SCH (09:20)
[2022-07-07] MEDS: MULTIPLE VITAMIN TAB PO SCH (09:20)
[2022-07-07] MEDS: [UNRECOGNIZED DRUG - OTHER] XX SCH (10:00)
[2022-07-07 17:00] VITALS: BP 97/52
[2022-07-07 22:00] VITALS: BP 102/55
[2022-07-07] MEDS ORDERED: PANTOPRAZOLE 40 MG TAB PO ONE (22:45)
[2022-07-08 05:00] VITALS: BP 91/48
[2022-07-08] MEDS: SODIUM CHLOR 0.9% PF (SALINE LOCK) 10ML VIAL/SYR IV SCH ×3 (06:10→22:00)
[2022-07-08] MEDS: EMPAGLIFLOZIN 10 MG TAB PO SCH (06:10)
[2022-07-08] MEDS: InsuLIN REG 1unit/0.01ml Soln (100units/ml) SC SCH ×4 (06:11→21:36)
[2022-07-08] MEDS: ACCU-CHEK COMFORT CURVE STRIP VI SCH ×4 (06:11→22:00)
[2022-07-08 06:17] VITALS: BP 116/75
[2022-07-08 07:27] LABS: BUN/Creatinine Ratio 33.5; Calcium 9.2 mg/dL (8.5-10.1); Potassium 3.4 mmol/L (3.5-5.1)
[2022-07-08 08:39] VITALS: BP 98/63
[2022-07-08] MEDS: [UNRECOGNIZED DRUG - OTHER] XX SCH (10:00)
[2022-07-08] MEDS: METOPROLOL TARTRATE 25 MG TAB PO SCH ×2 (10:08→21:36)
[2022-07-08] MEDS: SACUBITRIL-VALSARTAN 24mg/26mg TAB PO SCH ×2 (10:09→21:36)
[2022-07-08] MEDS: AMIODARONE HCL 200 MG TAB PO SCH ×2 (10:09→21:35)
[2022-07-08] MEDS: ATORVASTATIN 20 MG TAB PO SCH (10:09)
[2022-07-08] MEDS: PANTOPRAZOLE 40 MG TAB PO SCH (10:09)
[2022-07-08] MEDS: MULTIPLE VITAMIN TAB PO SCH (10:09)
[2022-07-08] MEDS: ALLOPURINOL 100 MG TAB PO SCH (10:10)
[2022-07-08] MEDS ORDERED: POTASSIUM CHL 10 Meq TABLET PO ONE (12:00)
[2022-07-08] MEDS: SODIUM CHLORIDE 0.9% 1,000 ML IV SCH (12:14)
[2022-07-08 13:00] VITALS: BP 92/50
[2022-07-08 16:36] VITALS: BP 95/50
[2022-07-08 21:45] VITALS: BP 102/59
[2022-07-09 04:58] VITALS: BP 89/47
[2022-07-09] MEDS: SODIUM CHLOR 0.9% PF (SALINE LOCK) 10ML VIAL/SYR IV SCH ×2 (06:04→14:00)
[2022-07-09] MEDS: EMPAGLIFLOZIN 10 MG TAB PO SCH (06:04)
[2022-07-09] MEDS: ACCU-CHEK COMFORT CURVE STRIP VI SCH ×3 (06:04→16:43)
[2022-07-09] MEDS: InsuLIN REG 1unit/0.01ml Soln (100units/ml) SC SCH ×3 (06:04→16:43)
[2022-07-09 07:02] LABS: BUN/Creatinine Ratio 32.9; Calcium 8.8 mg/dL (8.5-10.1); Potassium 3.3 mmol/L (3.5-5.1)
[2022-07-09] MEDS: SODIUM CHLORIDE 0.9% 1,000 ML IV SCH (08:00)
[2022-07-09 09:00] VITALS: BP 107/61
[2022-07-09] MEDS: [UNRECOGNIZED DRUG - OTHER] XX SCH (10:00)
[2022-07-09] MEDS: AMIODARONE HCL 200 MG TAB PO SCH (10:06)
[2022-07-09] MEDS: SACUBITRIL-VALSARTAN 24mg/26mg TAB PO SCH (10:07)
[2022-07-09] MEDS: ATORVASTATIN 20 MG TAB PO SCH (10:07)
[2022-07-09] MEDS: MULTIPLE VITAMIN TAB PO SCH (10:09)
[2022-07-09] MEDS: METOPROLOL TARTRATE 25 MG TAB PO SCH (10:09)
[2022-07-09] MEDS: PANTOPRAZOLE 40 MG TAB PO SCH (10:10)
[2022-07-09] MEDS: ALLOPURINOL 100 MG TAB PO SCH (10:10)
[2022-07-09] MEDS ORDERED: POTASSIUM CHL 10 Meq TABLET PO ONE (12:15)
[2022-07-09] MEDS ORDERED: AMIO200T43 PO (12:22)
[2022-07-09] MEDS ORDERED: EMPA1TAB PO (12:22)
[2022-07-09 12:45] VITALS: BP 99/57
[2022-07-09 15:05] VITALS: BP 99/57
== END 2022-07-09 17:21 | disposition home or self-care (01) | DRG 190 ==
LOC: ER 09:29 → TELE 13:48 → TELE-WESTW 21:49
PROVIDERS: ADMIT Nurse Practitioner Family; ATTEND Internal Medicine
DX: I21.4 Non-ST elevation (NSTEMI) myocardial infarction (principal); N17.0 Acute kidney failure with tubular necrosis; I50.32 Chronic diastolic (congestive) heart failure; I42.9 Cardiomyopathy, unspecified; E11.9 Type 2 diabetes mellitus without complications; I20.0 Unstable angina; R04.0 Epistaxis; Z20.822 Contact with and (suspected) exposure to COVID-19; E66.01 Morbid (severe) obesity due to excess calories; E87.6 Hypokalemia; I11.0 Hypertensive heart disease with heart failure; M10.9 Gout, unspecified; Z79.84 Long term (current) use of oral hypoglycemic drugs; Z95.810 Presence of automatic (implantable) cardiac defibrillator; Z82.49 Family history of ischemic heart disease and other diseases of the circulatory system; Z83.3 Family history of diabetes mellitus; Z68.41 Body mass index [BMI] 40.0-44.9, adult
CPT/HCPCS: 36415; 71046; 80048; 80053; 80307; 81001; 82962; 83036; 83735; 83880; 84443; 84484; 85025; 85610; 85730; 86141; 87426; 93005; 96365; 96366; 96372; 99291; G0378; J1815; J7060

== ENCOUNTER 2023-11-29 12:24 | Inpatient (IN) | payer MEDICAID ==
[~2023-11-29] VITALS: Ht 170.2 cm; Wt 124.1 kg
[~2023-11-29 12:24] MED LIST changes: +AMIO200T43 PO; -ASPI1TAB91 PO; +ASPI81TA28 PO; -DOXY-332 PO; +DOXY-448 PO; +EMPA1TAB PO; +POTA-215 PO; -POTA1TAB61 PO
[2023-11-29 15:29] LABS: Basophils # (auto) 0 10 ^3/uL (0-0.2); Basophils % (auto) 0.7 % (0.0-2.0); Eosinophils # (auto) 0.2 10 ^3/uL (0-0.8); Monocytes % (auto) 13.6 % (0.0-12.0)
[2023-11-29 15:31] LABS: Eosinophils % (auto) 3.3 % (0.0-7.0); Hematocrit 53.3 % (41.0-53.0); Hemoglobin 17.8 g/dL (13.5-17.5); Lymphocytes # (auto) 1.1 10 ^3/uL (0.4-5.4); Lymphocytes % (auto) 15.4 % (10.0-50.0); Mean Corpuscular Hemoglobin 30.8 pg (28.0-32.0); Mean Corpuscular Hgb Conc. 33.3 g/dL (32.0-36.0); Mean Corpuscular Volume 92.4 fL (80.0-100.0); Neutrophils # (auto) 4.8 10 ^3/uL (1.6-8.6); Nucleated Red Blood Cells % 0.1 %; Red Blood Cells 5.77 10^6/uL (4.5-5.90); Red Cell Distribution Width 17.1 % (11.8-14.3); White Blood Cell 7.1 10^3/uL (4.4-10.8)
[2023-11-29 15:35] LABS: Chloride 103 mmol/L (98-107); Potassium 4.8 mmol/L (3.5-5.1); Sodium 136 mmol/L (136-145)
[2023-11-29 15:36] LABS: Anion Gap 6 (5-15); Calcium 9.8 mg/dL (8.7-10.4); Carbon Dioxide 27 mmol/L (20-30)
[2023-11-29 15:41] LABS: BUN/Creatinine Ratio 8.8 (10.0-20.0); Blood Urea Nitrogen 16 mg/dL (9-23); Glucose 101 mg/dL (74-106)
[2023-11-29] MEDS: FUROSEMIDE 40 MG/4 ML VIAL IV ONE (16:12)
[2023-11-29] MEDS ORDERED: HYDROcodone-ACET 5/325MG TAB PO PRN (16:15)
[2023-11-29] MEDS ORDERED: ACETAMINOPHEN 325 MG TAB PO PRN (16:45)
[2023-11-29] MEDS ORDERED: NITROGLYCERIN 0.4 MG SL TAB SL PRN (16:45)
[2023-11-29] MEDS ORDERED: MORPHINE SULFATE INJ 2 MG/ml SYRG IV PRN (16:45)
[2023-11-29] MEDS ORDERED: ALBUTEROL SULF 2.5 MG/0.5ML(0.5%) NEB SOLN NEB PRN (17:00)
[2023-11-29 17:04] LABS: Urine Bacteria FEW /hpf (None Seen); Urine Blood Negative /uL (Negative); Urine Clarity Clear (Clear); Urine Color Colorless (Yellow); Urine Protein, UAD Negative (Negative); Urine Specific Gravity 1.009 (1.001-1.035); Urine Sperm PRESENT /hpf (None Seen); Urine Urobilinogen Normal (Negative); Urine WBC 3 /hpf (0 - 3)
[2023-11-29 17:11] VITALS: PULSE 87; RESP 20; O2SAT 92
[2023-11-29] MEDS: ASPirin 81 mg TAB PO ONE (17:14)
[2023-11-29] MEDS: HEPARIN 1,000 UNITS/ml 1ML VIAL IV ONE (17:14)
[2023-11-29 17:28] LABS: Triglycerides 125 mg/dL (< 150)
[2023-11-29 17:29] LABS: LDL Cholesterol 54 mg/dL (< 100)
[2023-11-29 17:30] LABS: Cholesterol 107 mg/dL (< 200); HDL Cholesterol 39 mg/dL (40-59)
[2023-11-29 17:57] LABS: COVID19 ANTIGEN SOFIA FIA NEGATIVE (NEGATIVE)
[2023-11-29 17:58] LABS: Rapid Influenza A Negative (Negative); Rapid Influenza B Negative (Negative)
[2023-11-29 19:05] VITALS: O2SAT 92
[2023-11-29 19:33] VITALS: BP 101/56; PULSE 86; RESP 18; TEMP 97.8; O2SAT 96
[2023-11-29 19:45] VITALS: PULSE 85; RESP 15; O2SAT 93
[2023-11-29] MEDS: AMIODARONE HCL 200 MG TAB PO SCH (23:07)
[2023-11-29] MEDS: METOPROLOL TARTRATE 25 MG TAB PO SCH (23:08)
[2023-11-29] MEDS: SACUBITRIL-VALSARTAN 24mg/26mg TAB PO SCH (23:08)
[2023-11-29] MEDS ORDERED: VERI2.5T PO (23:13)
[2023-11-29] MEDS ORDERED: BUMEX2MG PO (23:13)
[2023-11-29] MEDS ORDERED: POTA-36 PO (23:13)
[2023-11-29] MEDS ORDERED: SPIR100T4 PO (23:13)
[2023-11-29 23:16] VITALS: BP 112/69; PULSE 81; RESP 18; TEMP 98.3; O2SAT 93
[2023-11-30] VITALS (9 sets, daily range): BP systolic 94–115; BP diastolic 54–67; PULSE 64–80; RESP 18–20; TEMP 98.2–98.9; O2SAT 91–96
[2023-11-30 05:32] LABS: Basophils # (auto) 0 10 ^3/uL (0-0.2); Basophils % (auto) 0.7 % (0.0-2.0); Mean Corpuscular Volume 92.7 fL (80.0-100.0); Nucleated Red Blood Cells % 0.2 %; White Blood Cell 6.7 10^3/uL (4.4-10.8)
[2023-11-30 05:35] LABS: Eosinophils # (auto) 0.3 10 ^3/uL (0-0.8); Eosinophils % (auto) 3.8 % (0.0-7.0); Hematocrit 53.7 % (41.0-53.0); Hemoglobin 17.9 g/dL (13.5-17.5); Lymphocytes # (auto) 1.1 10 ^3/uL (0.4-5.4); Lymphocytes % (auto) 16.6 % (10.0-50.0); Mean Corpuscular Hgb Conc. 33.4 g/dL (32.0-36.0); Monocytes % (auto) 15.5 % (0.0-12.0); Neutrophils # (auto) 4.2 10 ^3/uL (1.6-8.6); Neutrophils % (auto) 63.4 % (37.0-80.0); Red Blood Cells 5.79 10^6/uL (4.5-5.90)
[2023-11-30 05:42] LABS: Alanine Aminotransferase 129 U/L (7-40); Albumin 4.5 g/dL (3.2-4.8); Alkaline Phosphatase 141 U/L (46-116); Anion Gap 6 (5-15); Aspartate Aminotransferase 100 U/L (13-40); BUN/Creatinine Ratio 10.2 (10.0-20.0); Bilirubin, Total 1.3 mg/dL (0.2-1.0); Blood Urea Nitrogen 18 mg/dL (9-23); Carbon Dioxide 28 mmol/L (20-30); Chloride 97 mmol/L (98-107); Glucose 107 mg/dL (74-106); Potassium 3.9 mmol/L (3.5-5.1); Total Protein 7.9 g/dL (5.7-8.2)
[2023-11-30 05:44] LABS: Sodium 131 mmol/L (136-145)
[2023-11-30] MEDS: EMPAGLIFLOZIN 10 MG TAB PO SCH (06:01)
[2023-11-30] MEDS: CLOPIDOGREL BISULFATE 75 MG TAB PO SCH (10:00)
[2023-11-30] MEDS: ATORVASTATIN 20 MG TAB PO SCH (10:00)
[2023-11-30] MEDS: ASPirin-EC 81 mg tab PO SCH (10:00)
[2023-11-30] MEDS: ALLOPURINOL 100 MG TAB PO SCH (10:00)
[2023-11-30] MEDS: [UNRECOGNIZED DRUG - OTHER] XX SCH (10:00)
[2023-11-30] MEDS: ENOXAPARIN SOD 40 MG/0.4 ML SYRINGE SC SCH (10:02)
[2023-11-30 16:05] LABS: Phosphorus 4.2 mg/dL (2.4-5.1)
[2023-11-30] MEDS: FUROSEMIDE 20 MG/2 ML VIAL IV SCH (17:48)
[2023-12-01] VITALS (7 sets, daily range): BP systolic 97–120; BP diastolic 44–76; PULSE 71–85; RESP 16–20; TEMP 97.8–98.5; O2SAT 91–97
[2023-12-01] MEDS: FUROSEMIDE 20 MG/2 ML VIAL IV SCH (06:08)
[2023-12-01 07:48] LABS: Basophils # (auto) 0 10 ^3/uL (0-0.2); Hemoglobin 19.1 g/dL (13.5-17.5); Lymphocytes # (auto) 1.7 10 ^3/uL (0.4-5.4); Monocytes # (auto) 0.9 10 ^3/uL (0-1.3); Nucleated Red Blood Cells % 0.5 %; Red Cell Distribution Width 16.9 % (11.8-14.3)
[2023-12-01 07:51] LABS: Basophils % (auto) 0.7 % (0.0-2.0); Eosinophils # (auto) 0.3 10 ^3/uL (0-0.8); Eosinophils % (auto) 4.3 % (0.0-7.0); Lymphocytes % (auto) 25.9 % (10.0-50.0); Mean Corpuscular Hemoglobin 30.7 pg (28.0-32.0); Mean Corpuscular Hgb Conc. 33.4 g/dL (32.0-36.0); Monocytes % (auto) 14.3 % (0.0-12.0); Neutrophils # (auto) 3.5 10 ^3/uL (1.6-8.6); Neutrophils % (auto) 54.8 % (37.0-80.0); Red Blood Cells 6.21 10^6/uL (4.5-5.90); White Blood Cell 6.4 10^3/uL (4.4-10.8)
[2023-12-01 07:53] LABS: Alanine Aminotransferase 113 U/L (7-40); Albumin 4.5 g/dL (3.2-4.8); Alkaline Phosphatase 143 U/L (46-116); Anion Gap 6 (5-15); Aspartate Aminotransferase 88 U/L (13-40); BUN/Creatinine Ratio 11.4 (10.0-20.0); Bilirubin, Total 1.2 mg/dL (0.2-1.0); Blood Urea Nitrogen 20 mg/dL (9-23); Calcium 9.9 mg/dL (8.5-10.1); Carbon Dioxide 27 mmol/L (20-30); Chloride 93 mmol/L (98-107); Glucose 141 mg/dL (74-106); Phosphorus 4.5 mg/dL (2.4-5.1); Potassium 3.7 mmol/L (3.5-5.1); Total Protein 8.1 g/dL (5.7-8.2)
[2023-12-01 07:54] LABS: Sodium 126 mmol/L (136-145)
[2023-12-01 08:05] LABS: Hematocrit 57.2 % (41.0-53.0)
[2023-12-01] MEDS: ERGOCALCIFEROL 50,000 UNIT(1.25MG) CAP PO SCH (08:56)
[2023-12-01] MEDS ORDERED: MET25T PO (13:44)
[2023-12-01] MEDS ORDERED: ERGO1CAP23 PO (13:44)
[2023-12-01] MEDS ORDERED: AMIO200T13 PO (13:44)
== END 2023-12-01 18:15 | disposition home or self-care (01) | DRG 133 ==
LOC: ER 12:24 → TELE 16:47 → TELE-WESTW 22:42
PROVIDERS: ADMIT Internal Medicine Pulmonary Disease; ATTEND Internal Medicine Pulmonary Disease
DX: J96.00 Acute respiratory failure, unspecified whether with hypoxia or hypercapnia (principal); I21.A1 Myocardial infarction type 2; I50.33 Acute on chronic diastolic (congestive) heart failure; N17.9 Acute kidney failure, unspecified; I42.2 Other hypertrophic cardiomyopathy; I13.0 Hypertensive heart and chronic kidney disease with heart failure and stage 1 through stage 4 chronic kidney disease, or unspecified chronic kidney disease; Z20.822 Contact with and (suspected) exposure to COVID-19; E66.01 Morbid (severe) obesity due to excess calories; N18.32 Chronic kidney disease, stage 3b; M10.9 Gout, unspecified; G47.33 Obstructive sleep apnea (adult) (pediatric); Z82.49 Family history of ischemic heart disease and other diseases of the circulatory system; Z83.3 Family history of diabetes mellitus; Z95.810 Presence of automatic (implantable) cardiac defibrillator; Z68.41 Body mass index [BMI] 40.0-44.9, adult; Z79.899 Other long term (current) drug therapy
CPT/HCPCS: 36415; 71045; 80048; 80053; 80061; 81001; 82306; 82607; 83036; 83690; 83735; 83880; 83930; 84100; 84443; 84484; 85025; 85379; 87426; 87804; 93005; 93306; 99291; G0378

== ENCOUNTER 2024-05-01 11:04 | Inpatient (IN) | payer MEDICAID ==
[~2024-05-01] VITALS: Ht 170.2 cm; Wt 113.5 kg
[~2024-05-01 11:04] MED LIST changes: -1,4-CRY XX; -ALBUAER3 IN; +AMIO200T13 PO; -AMIO200T43 PO; -ASPI81TA28 PO; -BUME1TAB3 PO; +BUMEX2MG PO; -DOXY-448 PO; +ERGO1CAP23 PO; -HYDR-4902 PO; -POTA-215 PO; -SACU1TAB PO; +SPIR100T4 PO; +VERI2.5T PO
--- NOTE | 2024-05-01 11:43 | ED.PDOC ---
GI ASSESSMENT HPI Comments 38Y M with PMHx Afib, hypertrophic cardiomyopathy, and defibrillator placement presents to ED for chief complaint abd pain since Wednesday with nausea, vomiting, and blood in stool. 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. Pt denies alcohol, illicit drug, and tobacco use. No known allergies. Chief Complaint: Abdominal Pain Time Seen by MD: 11:25 Primary Care Provider: Danny HOLMAN Reviewed Notes: Medications, Allergies Allergies: Coded Allergies: NO KNOWN ALLERGIES (Unverified , 03/15/19) Home Meds Active Scripts Metoprolol Tartrate (Lopressor) 25 Mg Tb, 25 MG PO BID for 30 Days, #60 TAB Prov:KENNEDY CARVER RESIDENT 12/01/23 Ergocalciferol (VITAMIN D 49871 UNIT) 50,000 [place], [address] UNIT PO Q7D for 30 Days, #10 CAP Prov:KENNEDY CARVER 12/01/23 Amiodarone HCl (Amiodarone HCl) 200 Mg Tab, 200 MG PO BID for 30 Days, #60 TAB Prov:KENNEDY CARVER 12/01/23 Empagliflozin (Jardiance) 10 Mg Tab, 10 MG PO QAM for 30 Days, #30 TAB 3 Refills Prov:ANSLEY ORTEGA MD 07/09/22 Atorvastatin Calcium (ATORVASTATIN CALCIUM) 20 Mg Tab, 1 TAB PO DAILY, #30 TAB 5 Refills Prov:JESSICA GRESHAM MD 05/16/22 Clopidogrel Bisulfate (Plavix) 75 Mg Tab, 1 TAB PO DAILY, #30 TAB 1 Refill Prov:JESSICA GRESHAM MD 05/16/22 Reported Medications Bumetanide (Bumex) 2 Mg Tab, 1 MG PO DAILY 11/29/23 Vericiguat (Verquvo) 2.5 Mg Tab, 2.5 MG PO DAILY, TAB 11/29/23 Spironolactone (Spironolactone) 100 Mg Tab, 100 MG PO BID, TAB 11/29/23 Allopurinol (Allopurinol) 100 Mg Tab, 200 MG PO DAILY, TAB 10/25/20 Information Source: Patient Mode of Arrival: Ambulatory Timing: Days Duration: Since onset Quality: Sharp Vomitus: Watery Stool: Blood Streaked Severity: Mild Recent: None Recent Hx of: None Pain Location: Epigastric Modifying Factors: Nothing Associated sign and symptoms: Nausea, Vomiting, Abdominal Pain, Blood in Stool Past Medical History PAST MEDICAL HISTORY: AFIB, CHF, Gout, HTN, [place] Surgical History: Pacemaker Family History Family History: Unknown, Family hx of heart neda Social History Smoker: Non-Smoker Alcohol: Denies ETOH Use Drugs: Denies Drug Use Lives In: Home Constitutional: denies: chills, diaphoresis, fatigue, fever, malaise, sweats, weakness, others EENTM: denies: blurred vision, double vision, ear bleeding, ear discharge, ear drainage, ear pain, ear ringing, eye pain, eye redness, hearing loss, mouth pain, mouth swelling, nasal discharge, nose bleeding, nose congestion, nose pain, photophobia, tearing, throat pain, throat swelling, voice changes, others Respiratory: denies: cough, hemoptysis, orthopnea, SOB at rest, shortness of breath, SOB with excertion, stridor, wheezing, others Cardiovascular: denies: chest pain, dizzy spells, diaphoresis, Dyspnea on exertion, edema, irregular heart beat, left arm pain, lightheadedness, palpitations, PND, syncope, others Gastrointestinal: reports: abdominal pain, blood streaked bowels, nausea, vomiting; denies: abdomen distended, constipated, diarrhea, dysphagia, difficulty swallowing, hematemesis, melena, poor appetite, poor fluid intake, rectal bleeding, rectal pain, others Genitourinary: denies: burning, dysuria, flank pain, frequency, hematuria, incontinence, penile discharge, penile sore, pain, testicle pain, testicle swelling, urgency, others Neurological: denies: dizziness, fainting, headache, left sided numbness, left sided weakness, numbness, paresthesia, pre-existing deficit, right sided numbn ess, right sided weakness, seizure, speech problems, tingling, tremors, weakness, others Musculoskeletal: denies: back pain, gout, joint pain, joint swelling, muscle pain, muscle stiffness, neck pain, others Integumetry: denies: bruises, change in color, change in hair/nails, dryness, laceration, lesions, lumps, rash, wounds, others Allergic/Immunocompromised: denies: Difficulty Healing, Frequent Infections, Hives, Itching, others Hematologic/Lymphatic: denies: anemia, blood clots, easy bleeding, easy bruising, swollen glands, others Endocrine: denies: excessive hunger, excessive sweating, excessive thirst, excessive urination, flushing, intolerance to cold, intolerance to heat, unexplained weight gain, unexplained weight loss, others Psychiatric: denies: anxiety, bipolar disorder, depression, hopeless, panic disorder, schizophrenia, sleepless, suicidal, others All Other Systems: Reviewed and Negative Physical Exam General Appearance: Moderate Distress, Normal HEENT: Normal ENT Inspection, Pharynx Normal, TMs Normal Neck: Full Range of Motion, Non-Tender, Normal, Normal Inspection Respiratory: Chest Non-Tender, Lungs Clear, No Accessory Muscle Use, No Respiratory Distress, Normal Breath Sounds Cardiovascular: No Edema, No JVD, No Murmur, No Gallop, Normal Peripheral Pulses, Regular Rate/Rhythm Breast Exam: Deferred Gastrointestinal: No Organomegaly, Non Tender, No Pulsatile Mass, Normal Bowel Sounds, Soft Genitalia: Deferred Pelvic: Deferred Rectal: Deferred Extremities: No calf tenderness, Normal capillary refill, Normal inspection, Normal range of motion, Non-tender, No pedal edema Musculoskeletal : Apperance: Normal Neurologic: Alert, marine technician II-XII nml as Tested, No Motor Deficits, Normal Affect, Normal Mood, No Sensory Deficits Cerebellar Function: NOT DONE Reflexes: NOT DONE Skin: Dry, Normal Color, Warm Peripheral Pulses: 3+ Radial (R), 3+ Radial (L) Lymphatic: No Adenopathy Was a procedure done? Was a procedure done?: No GI differential Dx Differential Diagnosis: Constipation, Diverticular disease, Esophagitis, G astritis/PUD, Gastroenteritis X-Ray, Labs, Meds, VS Vital Signs Date Time Temp Pulse Resp B/P (MAP) Pulse Ox O2 Delivery O2 Flow Rate FiO2 05/01/24 11:27 97.6 84 16 100/60 (73) 98 Lab Test 05/01/24 11:30 Range/Units Urine Color Yellow Yellow Urine Clarity Clear Clear Urine pH 5.0 5.0-9.0 Urine Specific [place] 1.023 1.001-1.035 Urine Protein Negative Negative Urine Ketones Negative Negative Urine Blood Negative Negative /uL Urine Nitrite Negative Negative Urine Bilirubin Negative Negative Urine Urobilinogen Normal Negative mg/dL Urine Leukocyte Esterase Negative Negative /uL Urine RBC 1 0 - 3 /hpf Urine WBC <1 0 - 3 /hpf Urine Squamous Epithelial Cells Few <5 /hpf Urine Bacteria None seen None Seen /hpf Urine Glucose 4+ H Normal mg/dL Patient alert. Complaining of epigastric pain. Vitals stable. Answering all questions. History of cardiac disease. Continues to have abdominal pain. Possible gastritis. Explained to the patient. Time of 1ST Reevaluation: 11:55 Reevaluation 1ST: Unchanged Patient Education/Counseling: Diagnosis, Treatment Family Education/Counseling: Diagnosis, Treatment Departure 1 Departure Time of Disposition: 13:33 Impression: Primary Impression: Acute abdominal pain Additional Impression: Gastritis Qualified Codes: K29.00 - Acute gastritis without bleeding Disposition: ADMITTED INPATIENT Admit to: Med Surg Condition: Guarded Critical Care Note Critical Care Time?: No Stability Stability form required: No Heart Score Heart Score: Heart Score Response (Comments) Value History N/A 0 EKG N/A 0 Age N/A 0 Risk Factors N/A 0 Troponin N/A 0 Total 0 I personally scribed for DAREK GRAJEDA MD ([email or web address]) on 05/01/24 at 11:43. Electronically submitted by Arlyn Bills ([email or web address]). DAREK GRAJEDA MD May 01, 2024 11:43
[2024-05-01 11:53] LABS: Urine Bacteria None Seen /hpf (None Seen)
[2024-05-01 12:10] LABS: Urine Blood Negative /uL (Negative); Urine Clarity Clear (Clear); Urine Color Yellow (Yellow); Urine Protein, UAD Negative (Negative); Urine Specific Gravity 1.023 (1.001-1.035); Urine Urobilinogen Normal (Negative); Urine WBC <1 /hpf (0 - 3)
[2024-05-01 14:07] LABS: Basophils # (auto) 0 10 ^3/uL (0-0.2); Basophils % (auto) 0.9 % (0.0-2.0); Eosinophils # (auto) 0 10 ^3/uL (0-0.8); Eosinophils % (auto) 0.6 % (0.0-7.0); Hematocrit 51.5 % (41.0-53.0); Hemoglobin 16.7 g/dL (13.5-17.5); Lymphocytes # (auto) 1.8 10 ^3/uL (0.4-5.4); Lymphocytes % (auto) 33.3 % (10.0-50.0); Mean Corpuscular Hgb Conc. 32.4 g/dL (32.0-36.0); Mean Corpuscular Volume 89.5 fL (80.0-100.0); Monocytes # (auto) 0.6 10 ^3/uL (0-1.3); Monocytes % (auto) 11.5 % (0.0-12.0); Neutrophils # (auto) 2.9 10 ^3/uL (1.6-8.6); Neutrophils % (auto) 53.7 % (37.0-80.0); Platelet Count (auto) 201 10^3/uL (140-450); Red Blood Cells 5.75 10^6/uL (4.5-5.90); Red Cell Distribution Width 19.2 % (11.8-14.3); White Blood Cell 5.4 10^3/uL (4.4-10.8)
[2024-05-01 14:15] LABS: Chloride 102 mmol/L (98-107); Potassium 5.4 mmol/L (3.5-5.1); Sodium 135 mmol/L (136-145)
[2024-05-01 14:16] LABS: Anion Gap 5 (5-15); Carbon Dioxide 28 mmol/L (20-31)
[2024-05-01 14:17] LABS: Calcium 10.4 mg/dL (8.7-10.4)
[2024-05-01 14:22] LABS: BUN/Creatinine Ratio 7.8 (10.0-20.0); Blood Urea Nitrogen 15 mg/dL (9-23); Glucose 102 mg/dL (74-106)
[2024-05-01] MEDS: ENOXAPARIN SOD 120 MG/0.8 ML SYRINGE SC ONE (16:04)
[2024-05-01 17:10] LABS: INR 1.18 (0.9-1.15); Prothrombin Time 12.4 sec (9.3-11.8)
[2024-05-01] MEDS ORDERED: ACETAMINOPHEN 325 MG TAB PO PRN ×2 (17:15→23:00)
[2024-05-01] MEDS ORDERED: HYDROmorphone HCL 2 MG/ML VL/or syr IV PRN ×3 (17:15→23:00)
[2024-05-01] MEDS ORDERED: HYDROcodone-ACET 5/325MG TAB PO PRN (17:15)
[2024-05-01] MEDS ORDERED: NITROGLYCERIN 0.4 MG SL TAB SL PRN ×2 (17:15→23:00)
[2024-05-01] MEDS ORDERED: DOCUSATE SOD 100 MG CAP PO PRN ×2 (17:15→23:00)
[2024-05-01] MEDS ORDERED: ONDANSETRON HCL 4 MG/2 ML VIAL IV PRN ×2 (17:15→23:00)
[2024-05-01] MEDS ORDERED: MORPHINE SULFATE INJ 2 MG/ml SYRG IV PRN ×2 (17:15→23:00)
--- NOTE | 2024-05-01 17:21 | DVHHP2 ---
Admitting Diagnosis: Abdominal pain History of Present Illness 38Y M with PMHx Afib, hypertrophic cardiomyopathy, and defibrillator placement presents to ED for chief complaint abd pain since James with nausea, vomiting, and blood in stool. 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 Pt denies alcohol, illicit drug, and tobacco use. No known allergies. PAST MEDICAL HISTORY: AFIB, CHF, Gout, HTN, [place] Surgical History: Pacemaker Family History Family History: Unknown, Family hx of heart neda Social History Smoker: Non-Smoker Alcohol: Denies ETOH Use Drugs: Denies Drug Use Lives In: Home Patient Family History: Cardiovascular disease Diabetes mellitus G8 FATHER FH: CHF (congestive heart failure) G8 FATHER Allergies: Coded Allergies: NO KNOWN ALLERGIES (Unverified , 03/15/19) Home Meds Active Scripts Metoprolol Tartrate (Lopressor) 25 Mg Tb, 25 MG PO BID for 30 Days, #60 TAB Prov:KENNEDY CARVER RESIDENT 12/01/23 Ergocalciferol (VITAMIN D 46892 UNIT) 50,000 [place], [address] UNIT PO Q7D for 30 Days, #10 CAP Prov:KENNEDY CARVER RESIDENT 12/01/23 Amiodarone HCl (Amiodarone HCl) 200 Mg Tab, 200 MG PO BID for 30 Days, #60 TAB Prov:KENNEDY CARVER RESIDENT 12/01/23 Empagliflozin (Jardiance) 10 Mg Tab, 10 MG PO QAM for 30 Days, #30 TAB 3 Refills Prov:ANSLEY ORTEGA MD 07/09/22 Atorvastatin Calcium (ATORVASTATIN CALCIUM) 20 Mg Tab, 1 TAB PO DAILY, #30 TAB 5 Refills Prov:JESSICA GRESHAM MD 05/16/22 Clopidogrel Bisulfate (Plavix) 75 Mg Tab, 1 TAB PO DAILY, #30 TAB 1 Refill Prov:JESSICA GRESHAM MD 05/16/22 Reported Medications Bumetanide (Bumex) 2 Mg Tab, 1 MG PO DAILY 11/29/23 Vericiguat (Verquvo) 2.5 Mg Tab, 2.5 MG PO DAILY, TAB 11/29/23 Spironolactone (Spironolactone) 100 Mg Tab, 100 MG PO BID, TAB 11/29/23 Allopurinol (Allopurinol) 100 Mg Tab, 200 MG PO DAILY, TAB 10/25/20 Current Medications Current Medications Medications (Trade) Dose Ordered Sig/Kathleen Route PRN Reason Start Time Stop Time Status Last Admin Sodium Chloride (Saline Lock Ns) 10 ml Q8HR IV 05/01/24 22:00 Docusate Sodium (Colace Capsule) 100 mg BIDPRN PRN PO FOR CONSTIPATION 05/01/24 17:15 Acetaminophen (Tylenol Tablet) 650 mg Q6HP PRN PO PAIN SCALE 1-3 OR TEMP>100.4 05/01/24 17:15 Acetaminophen/ Hydrocodone Bitart ([place] 5/325MG Tab) 1 tab Q4HP PRN PO MODERATE PAIN (4-6 PAIN SCALE) 05/01/24 17:15 Hydromorphone HCl (Dilaudid Injection) 0.5 mg Q4HP PRN IV SEVERE PAIN (7-10 PAIN SCALE) 05/01/24 17:15 Ondansetron HCl (Zofran) 4 mg Q4HP PRN IV NAUSEA / VOMITING 05/01/24 17:15 Nitroglycerin (Ntrostat Sublingual) 0.4 mg Q5MINP PRN SL FOR CHEST PAIN 05/01/24 17:15 Morphine Sulfate 2 mg Q30M PRN IV FOR CHEST PAIN 05/01/24 17:15 Vital Signs Vital Signs Date Time Temp Pulse Resp B/P (MAP) Pulse Ox O2 Delivery O2 Flow Rate FiO2 05/01/24 16:16 80 05/01/24 16:11 20 98 Room Air 05/01/24 16:11 98.2 102/63 (76) 98.2 Physical Exam 38 years old male, overweight, sitting on chair. No apparent distress HEENT-atraumatic normocephalic Heart-regular rate and rhythm Lungs clear to auscultate Abdomen soft mild tender to palpate nondistended Musculoskeletal-no edema cyanosis Neuro-AO x3, no focal deficit Results Labs Test 05/01/24 16:10 05/01/24 13:50 05/01/24 11:30 Range/Units Lactic Acid Level 0.7 0.4-2.0 mmol/L White Blood Count 5.4 4.4-10.8 10^3/uL Red Blood Count 5.75 4.5-5.90 10^6/uL Hemoglobin 16.7 13.5-17.5 g/dL Hematocrit 51.5 41.0-53.0 % Mean Corpuscular Volume 89.5 80.0-100.0 fL Mean Corpuscular Hemoglobin 29.0 28.0-32.0 pg Mean Corpuscular Hemoglobin Concent 32.4 32.0-36.0 g/dL Red Cell Distribution Width 19.2 H 11.8-14.3 % Platelet Count 201 140-450 10^3/uL Mean Platelet Volume 8.6 6.9-10.8 fL Neutrophils (%) (Auto) 53.7 37.0-80.0 % Lymphocytes (%) (Auto) 33.3 10.0-50.0 % Monocytes (%) (Auto) 11.5 0.0-12.0 % Eosinophils (%) (Auto) 0.6 0.0-7.0 % Basophils (%) (Auto) 0.9 0.0-2.0 % Neutrophils # (Auto) 2.9 1.6-8.6 10 ^3/uL Lymphocytes # (Auto) 1.8 0.4-5.4 10 ^3/uL Monocytes # (Auto) 0.6 0-1.3 10 ^3/uL Eosinophils # (Auto) 0 0-0.8 10 ^3/uL Basophils # (Auto) 0 0-0.2 10 ^3/uL Nucleated Red Blood Cells 0.0 % Prothrombin Time 12.4 H 9.3-11.8 sec Prothrombin Time INR 1.18 H 0.9-1.15 Sodium Level 135 L 136-145 mmol/L Potassium Level 5.4 H 3.5-5.1 mmol/L Chloride Level 102 98-107 mmol/L Carbon Dioxide Level 28 20-31 mmol/L Anion Gap 5 5-15 Blood Urea Nitrogen 15 9-23 mg/dL Creatinine 1.92 H 0.700-1.30 mg/dL Glomerular Filtration Rate Calc 45 >90 mL/min BUN/Creatinine Ratio 7.8 L 10.0-20.0 Serum Glucose 102 74-106 mg/dL Calcium Level 10.4 8.7-10.4 mg/dL Troponin I High Sensitivity 234 *H </=54 ng/L Urine Color Yellow Yellow Urine Clarity Clear Clear Urine pH 5.0 5.0-9.0 Urine Specific [place] 1.023 1.001-1.035 Urine Protein Negative Negative Urine Ketones Negative Negative Urine Blood Negative Negative /uL Urine Nitrite Negative Negative Urine Bilirubin Negative Negative Urine Urobilinogen Normal Negative mg/dL Urine Leukocyte Esterase Negative Negative /uL Urine RBC 1 0 - 3 /hpf Urine WBC <1 0 - 3 /hpf Urine Squamous Epithelial Cells Few <5 /hpf Urine Bacteria None seen None Seen /hpf Urine Glucose 4+ H Normal mg/dL Primary Diagnosis Elevated troponin rule out ACS Chest pain Abdomen pain Lower GI bleed ANGELO on CKD Plan Chest pain intermittent Check of the heart Trend troponin until plateau Cardiology consult Urine sodium, urine creatinine, ultrasound kidney Nephrology consult Check occult blood, reticulocyte count was GI consult NPO except meds Pain control Full code PPI for GI prophylaxis SCD for DVT prophylaxis Plan discussed with: Patient Date of Service: May 01, 2024 Billing Provider: KIYA KNIGHT MD Common Visit Codes: [id number] INP/OBS CARE (HIGH) KIYA KNIGHT MD May 01, 2024 17:21
[2024-05-01] MEDS ORDERED: ERGOCALCIFEROL 50,000 UNIT(1.25MG) CAP PO SCH (17:30)
[2024-05-01] MEDS: SODIUM ZIRCONIUM CYCL 10 GM PAK PO ONE (17:43)
--- NOTE | 2024-05-01 18:39 | DVH ---
INDICATION: ANGELO on CKD. TECHNIQUE: Multiple real-time sonographic images of the kidneys and bladder were obtained. COMPARISON: None FINDINGS: RIGHT kidney measures 10.8 cm in length. Normal cortical thickness and echogenicity. No focal lesion s or stones are identified. No hydronephrosis. LEFT kidney measures 11.2 cm in length. Normal cortical thickness and echogenicity. No focal lesions or stones are identified. No hydronephrosis. No large intraluminal masses are seen in the bladder. Prevoid urinary bladder volume 519 cc. No postvoid images are provided. IMPRESSION: 1. Unremarkable examination. HS:Y
--- NOTE | 2024-05-01 18:50 | ECG ---
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
--- NOTE | 2024-05-01 19:39 | DVH ---
Exam: CT CT AB PEL WO CON-NO ORAL OR IV History: eval for intra-abdominal infection Comparison Study: [facility] on DOS: 05/07/22, [facility] on DOS: 10/02/21 TECHNIQUE: Multidetector CT of the abdomen and pelvis was performed from lung bases to pubic symphysi s. Imaging was performed without IV contrast. Axial, coronal, and sagittal multiplanar reformats were obtained from the axial data set by the technologist. RADIATION DOSE: DLP 1437.76 mGy.cm; CTDI vol 23.17 mGy. Findings: Limited evaluation given noncontrast technique. Lungs: Right lower lobe peripheral groundglass opacities Heart: The visualized heart is unremarkable. No cardiomegaly or pericardial effusion. Liver: Unremarkable. Gallbladder: Unremarkable. Spleen: Unremarkable Pancreas: Unremarkable Adrenals: Unremarkable Kidneys: Unremarkable GI tract: Unremarkable : The urinary bladder is decompressed. Vasculature: Unremarkable Lymphadenopathy: Absent Peritoneum: No ascites Musculoskeletal: Unremarkable Soft tissues: Bilateral gynecomastia Impression: 1. Limited evaluation given noncontrast technique. 2. No definite acute abdominopelvic abnormalities.
[2024-05-01 21:45] VITALS: BP 104/70; PULSE 86; RESP 19; TEMP 98.3; O2SAT 99
[2024-05-01] MEDS: AMIODARONE HCL 200 MG TAB PO SCH (21:54)
[2024-05-01] MEDS: METOPROLOL TARTRATE 25 MG TAB PO SCH (21:55)
[2024-05-01] MEDS: SODIUM CHLOR 0.9% PF (SALINE LOCK) 10ML VIAL/SYR IV SCH (21:56)
[2024-05-01] MEDS ORDERED: AMIODARONE HCL 200 MG TAB PO SCH (22:00)
[2024-05-01] MEDS ORDERED: SPIRONOLACTONE 100 MG PO SCH (22:00)
[2024-05-01] MEDS ORDERED: METOPROLOL TARTRATE 25 MG TAB PO SCH (22:00)
[2024-05-01 22:56] VITALS: BP 104/70; PULSE 86; RESP 18; TEMP 98.3; O2SAT 99
[2024-05-01] MEDS: HYDROcodone-ACET 5/325MG TAB PO PRN (23:03)
[2024-05-01] MEDS ORDERED: FERR1TAB17 PO (23:28)
[2024-05-01] MEDS ORDERED: SEMA2.4I SC (23:28)
[2024-05-01] MEDS ORDERED: MAVA5CAP PO (23:28)
[2024-05-01] MEDS ORDERED: MYCO500T PO (23:28)
[2024-05-02] VITALS (9 sets, daily range): BP systolic 93–103; BP diastolic 44–56; PULSE 64–85; RESP 16–20; TEMP 97.2–98.4; O2SAT 96–98
[2024-05-02] MEDS: EMPAGLIFLOZIN 10 MG TAB PO SCH (06:39)
[2024-05-02] MEDS: SODIUM CHLOR 0.9% PF (SALINE LOCK) 10ML VIAL/SYR IV SCH (06:40)
[2024-05-02] MEDS: ERGOCALCIFEROL 50,000 UNIT(1.25MG) CAP PO SCH (06:43)
[2024-05-02 06:51] LABS: Basophils # (auto) 0.1 10 ^3/uL (0-0.2); Eosinophils # (auto) 0 10 ^3/uL (0-0.8); Eosinophils % (auto) 0.8 % (0.0-7.0); Hematocrit 49.5 % (41.0-53.0); Lymphocytes # (auto) 1.8 10 ^3/uL (0.4-5.4); Lymphocytes % (auto) 34.4 % (10.0-50.0); Mean Corpuscular Hemoglobin 28.9 pg (28.0-32.0); Mean Corpuscular Hgb Conc. 32.3 g/dL (32.0-36.0); Mean Corpuscular Volume 89.6 fL (80.0-100.0); Monocytes # (auto) 0.7 10 ^3/uL (0-1.3); Monocytes % (auto) 14.4 % (0.0-12.0); Neutrophils # (auto) 2.5 10 ^3/uL (1.6-8.6); Neutrophils % (auto) 49.4 % (37.0-80.0); Nucleated Red Blood Cells % 0.5 %; Platelet Count (auto) 183 10^3/uL (140-450); Red Blood Cells 5.52 10^6/uL (4.5-5.90); Red Cell Distribution Width 19.9 % (11.8-14.3); White Blood Cell 5.2 10^3/uL (4.4-10.8)
[2024-05-02 06:54] LABS: Alanine Aminotransferase 176 U/L (7-40); Alkaline Phosphatase 100 U/L (46-116); Carbon Dioxide 26 mmol/L (20-31); Chloride 102 mmol/L (98-107); Glucose 83 mg/dL (74-106)
[2024-05-02 06:55] LABS: Albumin 4.3 g/dL (3.2-4.8); Anion Gap 7 (5-15); Aspartate Aminotransferase 85 U/L (13-40); BUN/Creatinine Ratio 7.8 (10.0-20.0); Blood Urea Nitrogen 14 mg/dL (9-23); Sodium 135 mmol/L (136-145)
[2024-05-02 06:56] LABS: Bilirubin, Total 0.9 mg/dL (0.2-1.0)
[2024-05-02] MEDS ORDERED: EMPAGLIFLOZIN 10 MG TAB PO SCH ×2 (07:00)
[2024-05-02] MEDS: METOPROLOL TARTRATE 25 MG TAB PO SCH (08:37)
[2024-05-02] MEDS: BUMETANIDE 1 MG TAB PO SCH (08:45)
[2024-05-02] MEDS: SPIRONOLACTONE 25 MG TAB PO SCH (08:45)
[2024-05-02] MEDS: PANTOPRAZOLE 40 MG/10 ML VIAL INJ IV SCH ×2 (09:06→21:01)
[2024-05-02] MEDS ORDERED: VERICIGUAT 2.5 MG PO SCH (10:00)
[2024-05-02] MEDS ORDERED: ERGOCALCIFEROL 50,000 UNIT(1.25MG) CAP PO SCH (10:00)
[2024-05-02] MEDS ORDERED: BUMETANIDE 1 MG TAB PO SCH (10:00)
[2024-05-02] MEDS ORDERED: BUMETANIDE 1 MG PO SCH (10:00)
[2024-05-02] MEDS ORDERED: ATORVASTATIN 20 MG TAB PO SCH ×3 (10:00)
[2024-05-02] MEDS: VERICIGUAT 2.5 MG PO SCH (10:00)
[2024-05-02 10:35] LABS: INR 1.18 (0.9-1.15); Partial Thromboplastin Time 31.6 SEC (24.5-34.5); Prothrombin Time 12.4 sec (9.3-11.8)
--- NOTE | 2024-05-02 10:36 | DVH ---
CHEST RADIOGRAPH Indication:chf Technique: Single frontal view of the chest was obtained COMPARISON: XY CHEST XRAY 1 VIEW on DOS: 11/29/23, CHEST PORTABLE on DOS: 05/14/22, CXRP on DOS: 2 FINDINGS: Lines and Tubes: Left chest wall AICD Lungs: Clear Pleura: No effusion. No pneumothorax. Cardiomediastinal contours: Unremarkable Bones: Unremarkable IMPRESSION: No acute disease.
[2024-05-02] MEDS: OPTISON 3ml Vial for INJ IV ONE (11:06)
--- NOTE | 2024-05-02 12:00 | DVH ---
ULTRASOUND ABDOMEN limited INDICATION: Pain. TECHNIQUE: Multiple real-time sonographic images of the abdomen were obtained. COMPARISON: None FINDINGS: Visualized liver parenchyma appears echogenic consistent with steatosis. There is no intrahepatic yessi iary ductal dilatation. There is no obvious hepatic lesion. There is no evidence of gallstones, gallbladder wall thickening or pericholecystic fluid. The common biliary duct is not dilated. The right kidney measures 11.5 cm. No hydronephrosis. The pancreas is obscured by bowel gas. IMPRESSION: 1. Hepatic steatosis. HS:Y
[2024-05-02 12:57] LABS: Amphetamine Screen, Urine Neg (NEGATIVE); Barbiturate Scree,Urine Neg (NEGATIVE); Benzodiazephine Screen, Urine Neg (NEGATIVE); Cocaine Screen, Urine Neg (NEGATIVE); Creatinine, Urine 111.74 mg/dL (30.0-125.0); Opiate Scree,Urine Neg (NEGATIVE)
[2024-05-02 12:58] LABS: Cannabinoid Screen, Urine Neg (NEGATIVE); Phencyclidine Screen, Urine Neg (NEGATIVE)
--- NOTE | 2024-05-02 13:29 | DVHPNRES ---
Progress Note Date Seen: May 02, 2024 Resident Creating Document: ANISH MICHAEL RESIDENT Medical Necessity Reason Pt with a Central, PICC or Fol: No Subjective Review of Systems This is a 38-year-old male patient with PMHx of atrial fibrillation, who comes status post AICD placed for secondary prevention (V-tach), left heart catheterization [address] Gay, idiopathic subaortic stenosis, diastolic congestive heart failure LVEF 60%, gout, obstructive sleep apnea, obesity unremarkable, CKD 3A, prediabetes, hypertension presented to the ER with a chief complaint of abdominal pain and fresh blood per rectum starting 04/28/2024. Patient reports severe abdominal pain located in the epigastric region associated with nausea and vomiting, intermittent in nature. He also reports fresh red blood in his stool, does not know if it is mixed with the stool or comes at the end, ongoing for the past 2 days. Says that everything started after his PCP Dr. Jeronimo Gay started Plavix 2 weeks earlier. He has noticed blood in his bowel movement at least twice. No lifetime history of colonoscopy/endoscopy. Per patient, he had a stress test in July this year at [facility] which was unremarkable for ischemia. Past medical history PMHx of atrial fibrillation, who comes status post AICD placed for secondary prevention (V-tach), left heart catheterization [address] Gay, idiopathic subaortic stenosis, diastolic congestive heart failure LVEF 60%, gout, obstructive sleep apnea, obesity unremarkable, CKD 3A, prediabetes, hypertension Past surgical history AICD placement May 31, [address] Adan Gay Social history Denies smoking/drinking/illicit drug use, lives with his Home medications: Metoprolol 25 b.i.d., amiodarone 200 b.i.d., Bumex, Plavix, spironolactone, atorvastatin, Jardiance, allopurinol, Dewy Rose, [place] PCP, Dr. 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 Adan Gay, also has a milieu therapist in [facility] Patient seen and examined at bedside. Lying comfortably in the bed. No abdominal tenderness. No active bleeding. Rectal exam performed, anal tone is intact, no no hemorrhoids or masses felt, prostate is enlarged, stool sample collected which is yellow and not bloody. Sent for occult blood. Objective vital signs Vital Sign Date Time Temp Pulse Resp B/P (MAP) Pulse Ox O2 Delivery O2 Flow Rate FiO2 05/02/24 11:39 80 05/02/24 09:00 98.0 17 103/55 (71) 98 98.0 05/02/24 08:30 Room Air* 0 21 Total Intake and Output 05/01/24 05/01/24 05/02/24 15:00 23:00 07:00 Intake Total 0 ml Output Total 0 ml Balance 0 ml medications Current Medications Medications Dose Ordered Sig/Kathleen Route Start Time Stop Time Status Last Admin Dose Admin Amiodarone HCl 200 mg BID PO 05/01/24 22:00 05/02/24 08:45 200 MG Patient Own Medication 2.5 mg DAILY PO 05/02/24 10:00 Acetaminophen/ Hydrocodone Bitart 1 tab Q4HP PRN PO 05/01/24 23:00 05/02/24 09:12 1 TAB Acetaminophen 650 mg Q6HP PRN PO 05/01/24 23:00 Docusate Sodium 100 mg BIDPRN PRN PO 05/01/24 23:00 Empaglifozin 10 mg QAM PO 05/02/24 07:00 05/02/24 06:39 10 MG Ergocalciferol 50,000 unit Q7D PO 05/01/24 23:00 05/02/24 06:43 50,000 UNIT Hydromorphone HCl 0.5 mg Q4HP PRN IV 05/01/24 23:00 Metoprolol Tartrate 25 mg BID PO 05/02/24 10:00 Morphine Sulfate 2 mg Q30M PRN IV 05/01/24 23:00 Nitroglycerin 0.4 mg Q5MINP PRN SL 05/01/24 23:00 Ondansetron HCl 4 mg Q4HP PRN IV 05/01/24 23:00 Sodium Chloride 10 ml Q8HR IV 05/02/24 06:00 05/02/24 06:40 10 ML Atorvastatin Calcium 20 mg HS PO 05/02/24 21:00 Pantoprazole Sodium 40 mg BID IV 05/02/24 22:00 Spironolactone 50 mg DAILY PO 05/03/24 10:00 Examination Obese male patient lying in bed, in no acute distress, and family members at bedside General: Obese, afebrile, palor, mucosae are moist Cardiovascular: Regular S1 and S2. No murmurs, gallops or rubs. No JVD elevation. No pedal edema Respiratory: Normal B/L air entry on room air. Clear lung sounds on auscultation Abdomen: Soft, nontender, nondistended, normoactive bowel sounds, no rebound tenderness, no organomegaly, no masses. Rectal exam performed, anal tone is intact, no no hemorrhoids or masses felt, prostate is enlarged, stool sample collected which is yellow and not bloody. Sent for occult blood. Genitourinary: Deferred MSK/skin: Mobilizes 4 limbs. Skin is dry and warm Neurological: No motor, no sensitive deficits, normal speech. Pupils are isocoric and reactive. Psych/Mental Status: A/Ox4 laboratory and microbiology Laboratory Tests 05/02/24 05:43 Test 05/02/24 05:43 Range/Units Serum Glucose 83 74-106 mg/dL Labs and/or images reviewed: Labs reviewed by me, Image(s) reviewed by me Problem List/Assessment/Plan Problem List/Assessment/Plan Probable GI bleed, blood sugar score Continue IV pantoprazole b.i.d. 40 mg GI consulted-started clear liquid diet, continue Protonix and Zofran. Possible plan at this time for outpatient elective GI procedures. Rectal exam performed, anal tone is intact, no no hemorrhoids or masses felt, prostate is enlarged, stool sample collected which is yellow and not bloody. Sent for occult blood. Stool occult pending Hemoglobin/hematocrit NSTEMI likely type 2 Troponin 234, 236, 238, 257, 245 BNP 25 EKG reviewed, shows normal sinus rhythm with prolonged AK interval Livestock Nutrition Territory Manager Dr. aGy mentioned patient had 2 left heart catheterization which were unremarkable. Patient is cleared as per Cardiology. Recommended prophylactic antibiotics prior to any procedures. Patient sees SD and has a follow up appointment for surgical management of hypertrophic cardiomyopathy Echocardiogram pending ANGELO due to questionable vasomotor nephropathy on CKD 3 a Creatinine 1.92 on admission, now 1.79 Baseline GFR 49 FENA 1.0 undetermined significance Diastolic congestive heart [id number] EF 60% 12/02 Continue patient on medication-Verquo, Jardiance, spironolactone Hold Bumex given the blood pressure of 100 by 60 mmHg Atrial fibrillation-controlled Telemetry reviewed, shows normal sinus rhythm, PVCs 7-15 in a minute, rate is controlled at 80 bpm Continue home medication amiodarone and metoprolol 25 mg p.o. b.i.d. Hypertrophic cardiomyopathy status post AICD placement for secondary prevention (history of V-tach) Idiopathic Subaortic stenosis Patient follows [facility] and Dr. Gay Per Dr. Gay, patient has scheduled surgery for subaortic stenosis Probable First-degree AV block Monitor Hyperkalemia secondary to over supplementation-resolved 5.4 on arrival, now 4 Nephrology consulted- reduced the dose of spironolactone from 100 to 50 mg p.o. daily Received 1 dose of Lokelma Hepatic steatosis Abdominal ultrasound revealed hepatic steatosis Obstructive sleep apnea Uses 2 L oxygen at night Vitamin-D deficiency Supplemented DVT prophylaxis Holding given the GI bleed Plan discussed with patient in which all questions have been answered Goals of care discussed with the patient for more than 22 minutes, full code status Plan discussed with Dr. Mendez. Plan discussed with: Patient My Orders My Orders Orders - ANISH MICHAEL Procedure Category Date Status Time Troponin-I Hs LAB 05/02/24 In Process 12:07 Chest Xray 1 View XY 05/02/24 Resulted 09:18 Pantoprazole PHA 05/02/24 In Process (Protonix) 22:00 Date of Service: May 02, 2024 Billing Provider: ROSY MENDEZ MD Common Visit Codes: [id number] INP/OBS CARE(HIGH) ANISH MICHAEL May 02, 2024 13:29 ROSY MENDEZ MD May 03, 2024 09:09
--- NOTE | 2024-05-02 14:07 | DVHINCON2 ---
GI Consult Consult Note GI consult note Date of Consultation: 05/02/2024 Chief Complaint: GI bleed Referring Physician: Dr. Lu H&P: 38-year-old male admitted with nausea and vomiting and also having red blood in stool Patient admits to having nausea vomiting to for last few days, mostly throwing up bile and food, no hematemesis. No nausea or vomiting now Patient also has noticed red blood with bowel movement on and off for last two weeks. No melena. No rectal pain. No history of hemorrhoids Patient denies abdominal pain. No EGD or colonoscopy in past. Patient takes Plavix. Patient denies history of alcohol use. No history of hepatitis Past Medical History: AFIB, CHF, Gout, HTN, VA Past Surgical History: Pacemaker Social History: NO smoking, drinking ETOH and use of illegal drugs. Family History: Noncontributory Review of Systems: Constitutional: no fever, chill, weight loss HEENT: no eye pain, no hearing loss, no oral lesion, no scleral icterus Heart: no chest pain, no chest pressure Lung: no cough, no dyspnea with exertion Abdomen: see HPI Physical exam: General: NAD, AAOX3 Chest: lung cruz clear to auscultation Heart: RRR, no murmur Abdomen: non-distended, no tenderness to palpation, +BS Labs: Labs Test 05/02/24 13:34 05/02/24 13:01 05/02/24 12:00 05/02/24 05:44 Range/Units Troponin I High Sensitivity 245 *H </=54 ng/L Urine Creatinine 111.74 30.0-125.0 mg/dL Urine Sodium 82 40-220 mmol/L Urine Opiates Screen Neg NEGATIVE Urine Fentanyl Screen Neg NEGATIVE Urine Barbiturates Screen Neg NEGATIVE Urine Phencyclidine Screen Neg NEGATIVE Urine Amphetamines Screen Neg NEGATIVE Urine Benzodiazepines Screen Neg NEGATIVE Urine Cocaine Screen Neg NEGATIVE Urine Cannabinoids Screen Neg NEGATIVE Prothrombin Time 12.4 H 9.3-11.8 sec Prothrombin Time INR 1.18 H 0.9-1.15 Activated Partial Thromboplast Time 31.6 24.5-34.5 SEC Hemoglobin A1c 5.5 <5.7 % A1C Vitamin B12 Level 2530 H 211-911 pg/mL Vitamin D 25-Hydroxy 46.9 30.0-100 ng/mL Thyroid Stimulating Hormone (TSH) 1.03 0.55-4.78 uIU/mL Test 05/02/24 05:43 05/01/24 16:10 05/01/24 13:50 05/01/24 11:30 Range/Units White Blood Count 5.2 4.4-10.8 10^3/uL Red Blood Count 5.52 4.5-5.90 10^6/uL Hemoglobin 16.0 13.5-17.5 g/dL Hematocrit 49.5 41.0-53.0 % Mean Corpuscular Volume 89.6 80.0-100.0 fL Mean Corpuscular Hemoglobin 28.9 28.0-32.0 pg Mean Corpuscular Hemoglobin Concent 32.3 32.0-36.0 g/dL Red Cell Distribution Width 19.9 H 11.8-14.3 % Platelet Count 183 140-450 10^3/uL Mean Platelet Volume 8.8 6.9-10.8 fL Neutrophils (%) (Auto) 49.4 37.0-80.0 % Lymphocytes (%) (Auto) 34.4 10.0-50.0 % Monocytes (%) (Auto) 14.4 H 0.0-12.0 % Eosinophils (%) (Auto) 0.8 0.0-7.0 % Basophils (%) (Auto) 1.0 0.0-2.0 % Neutrophils # (Auto) 2.5 1.6-8.6 10 ^3/uL Lymphocytes # (Auto) 1.8 0.4-5.4 10 ^3/uL Monocytes # (Auto) 0.7 0-1.3 10 ^3/uL Eosinophils # (Auto) 0 0-0.8 10 ^3/uL Basophils # (Auto) 0.1 0-0.2 10 ^3/uL Nucleated Red Blood Cells 0.5 % Sodium Level 135 L 136-145 mmol/L Potassium Level 4.0 3.5-5.1 mmol/L Chloride Level 102 98-107 mmol/L Carbon Dioxide Level 26 20-31 mmol/L Anion Gap 7 5-15 Blood Urea Nitrogen 14 9-23 mg/dL Creatinine 1.79 H 0.700-1.30 mg/dL Glomerular Filtration Rate Calc 49 >90 mL/min BUN/Creatinine Ratio 7.8 L 10.0-20.0 Serum Glucose 83 74-106 mg/dL Calcium Level 10.0 8.7-10.4 mg/dL Total Bilirubin 0.9 0.2-1.0 mg/dL Aspartate Amino Transferase (AST) 85 H 13-40 U/L Alanine Aminotransferase (ALT) 176 H 7-40 U/L Alkaline Phosphatase 100 46-116 U/L B-Type Natriuretic Peptide 25.51 0-100 pg/mL Total Protein 7.0 5.7-8.2 g/dL Albumin 4.3 3.2-4.8 g/dL Lactic Acid Level 0.7 0.4-2.0 mmol/L Reticulocyte Count (auto) 2.87 H 0.5-1.5 % Urine Color Yellow Yellow Urine Clarity Clear Clear Urine pH 5.0 5.0-9.0 Urine Specific [place] 1.023 1.001-1.035 Urine Protein Negative Negative Urine Ketones Negative Negative Urine Blood Negative Negative /uL Urine Nitrite Negative Negative Urine Bilirubin Negative Negative Urine Urobilinogen Normal Negative mg/dL Urine Leukocyte Esterase Negative Negative /uL Urine RBC 1 0 - 3 /hpf Urine WBC <1 0 - 3 /hpf Urine Squamous Epithelial Cells Few <5 /hpf Urine Bacteria None seen None Seen /hpf Urine Glucose 4+ H Normal mg/dL Imaging: CT abdomen pelvis Impression: 1. Limited evaluation given noncontrast technique. 2. No definite acute abdominopelvic abnormalities. Abdominal ultrasound IMPRESSION: 1. Hepatic steatosis. Assessment: Nausea and vomiting improving now GI bleed Hepatic steatosis Plan: Discussed with Dr. Alberts Monitor labs Protonix and Zofran Start clear liquid diet Cardiology consult pending Possible plan at this time for outpatient elective GI procedures Discussed plan with patient and RN Thank you for this consult Date of Service: May 02, 2024 Billing Provider: ABHIJIT BARCENAS Common Visit Codes: CONSULT ONLY Consultation Codes: [id number] CONSULT <45MIN ABHIJIT BARCENAS May 02, 2024 14:07
--- NOTE | 2024-05-02 18:32 | DVHCONRES ---
Date Seen: May 02, 2024 Resident Creating Document: JHAJJ,SARPUNEET RESIDENT Referring Physician MD Aly Reason for Consultation ANGELO and CKD History of Present Illness Patient is a 38-year-old male with a past medical history of atrial fibrillation, CHF, hypertrophic cardiomyopathy, hypertension came to the ED with a chief complaint of abdominal pain which started 3 days before presentation. Patient reports diffuse abdominal pain associated with nausea vomiting and blood in stool. Patient has a obstructive sleep apnea and uses 2 L per minute oxygen at night Past Medical History Atrial fibrillation, CHF, gout, hypertension, hypertrophic cardiomyopathy Past Surgical History ICD implantation in 2021 Coronary angiography in 2021 with no significant obstruction Family History: Cardiovascular disease Diabetes mellitus G8 FATHER FH: CHF (congestive heart failure) G8 FATHER Social History Lives with and denies smoking, alcohol, drug use Allergies: Coded Allergies: NO KNOWN ALLERGIES (Unverified , 03/15/19) Home Meds Active Scripts Metoprolol Tartrate (Lopressor) 25 Mg Tb, 25 MG PO BID for 30 Days, #60 TAB Prov:KENNEDY CARVER 12/01/23 Ergocalciferol (VITAMIN D 84878 UNIT) 50,000 [place], [address] UNIT PO Q7D for 30 Days, #10 CAP Prov:KENNEDY CARVER 12/01/23 Amiodarone HCl (Amiodarone HCl) 200 Mg Tab, 200 MG PO BID for 30 Days, #60 TAB Prov:KENNEDY CARVER 12/01/23 Empagliflozin (Jardiance) 10 Mg Tab, 10 MG PO QAM for 30 Days, #30 TAB 3 Refills Prov:ANSLEY ORTEGA MD 07/09/22 Atorvastatin Calcium (ATORVASTATIN CALCIUM) 20 Mg Tab, 1 TAB PO DAILY, #30 TAB 5 Refills Prov:JESSICA GRESHAM MD 05/16/22 Clopidogrel Bisulfate (Plavix) 75 Mg Tab, 1 TAB PO DAILY, #30 TAB 1 Refill Prov:JESSICA GRESHAM MD 05/16/22 Reported Medications Semaglutide (Wegovy) 2.4 Mg/0.75 Ml Inj, 2.4 MG SC ONCE, INJ 05/01/24 Ferric Citrate (Auryxia) 210 Mg Tab, 210 MG PO TID, TAB 05/01/24 Mycophenolate Mofetil (Cellcept) 500 Mg Tab, 2 TAB PO BID, #360 TAB 3 Refills 05/01/24 Mavacamten (Camzyos) 5 Mg Cap, 5 MG PO DAILY, CAP 05/01/24 Bumetanide (Bumex) 2 Mg Tab, 1 MG PO DAILY 11/29/23 Vericiguat (Verquvo) 2.5 Mg Tab, 2.5 MG PO DAILY, TAB 11/29/23 Spironolactone (Spironolactone) 100 Mg Tab, 100 MG PO BID, TAB 11/29/23 Allopurinol (Allopurinol) 100 Mg Tab, 200 MG PO DAILY, TAB 10/25/20 Current Medications Current Medications Medications (Trade) Dose Ordered Sig/Kathleen Route PRN Reason Start Time Stop Time Status Last Admin Sodium Chloride (Saline Lock Ns) 10 ml Q8HR IV 05/01/24 22:00 05/01/24 22:57 DC 05/01/24 21:56 Pantoprazole Sodium (Protonix) 40 mg DAILY IV 05/02/24 10:00 05/02/24 10:51 DC 05/02/24 09:06 Amiodarone HCl (Cordarone Tablet) 200 mg BID PO 05/01/24 22:00 05/01/24 18:03 DC Atorvastatin Calcium (Lipitor) 20 mg DAILY PO 05/02/24 10:00 05/01/24 18:03 DC Empaglifozin (Jardiance) 10 mg QAM PO 05/02/24 07:00 05/01/24 18:03 DC Metoprolol Tartrate (Lopressor Tablet) 25 mg BID PO 05/01/24 22:00 05/01/24 18:03 DC Patient Own Medication 1 mg DAILY PO 05/02/24 10:00 05/01/24 18:03 DC Patient Own Medication 100 mg BID PO 05/01/24 22:00 05/01/24 18:03 DC Patient Own Medication 2.5 mg DAILY PO 05/02/24 10:00 05/01/24 18:03 DC Amiodarone HCl (Cordarone Tablet) 200 mg BID PO 05/01/24 22:00 05/02/24 08:45 Atorvastatin Calcium (Lipitor) 20 mg DAILY PO 05/02/24 10:00 05/01/24 22:48 DC Empaglifozin (Jardiance) 10 mg QAM PO 05/02/24 07:00 05/01/24 22:49 DC Ergocalciferol (Vitamin D 50,000 Unit) 50,000 unit Q7D PO 05/02/24 10:00 05/01/24 22:49 DC Metoprolol Tartrate (Lopressor Tablet) 25 mg BID PO 05/01/24 22:00 05/01/24 22:52 DC 05/01/24 21:55 Bumetanide (Bumex Tablet) 1 mg DAILY PO 05/02/24 10:00 05/01/24 22:48 DC Spironolactone (Aldactone) 100 mg BID PO 05/02/24 10:00 05/02/24 11:06 DC 05/02/24 08:45 Patient Own Medication 2.5 mg DAILY PO 05/02/24 10:00 Acetaminophen/ Hydrocodone Bitart (Peterson 5/325MG Tab) 1 tab Q4HP PRN PO MODERATE PAIN (4-6 PAIN SCALE) 05/01/24 23:00 05/02/24 09:12 Acetaminophen (Tylenol Tablet) 650 mg Q6HP PRN PO PAIN SCALE 1-3 OR TEMP>100.4 05/01/24 23:00 Atorvastatin Calcium (Lipitor) 20 mg DAILY PO 05/02/24 10:00 05/02/24 07:53 DC Bumetanide (Bumex Tablet) 1 mg DAILY PO 05/02/24 10:00 05/02/24 11:06 DC 05/02/24 08:45 Docusate Sodium (Colace Capsule) 100 mg BIDPRN PRN PO FOR CONSTIPATION 05/01/24 23:00 Empaglifozin (Jardiance) 10 mg QAM PO 05/02/24 07:00 05/02/24 06:39 Ergocalciferol (Vitamin D 50,000 Unit) 50,000 unit Q7D PO 05/01/24 23:00 05/02/24 06:43 Hydromorphone HCl (Dilaudid Injection) 0.5 mg Q4HP PRN IV SEVERE PAIN (7-10 PAIN SCALE) 05/01/24 23:00 05/01/24 22:51 DC Hydromorphone HCl (Dilaudid Injection) 0.5 mg Q4HP PRN IV SEVERE PAIN (7-10 PAIN SCALE) 05/01/24 23:00 Metoprolol Tartrate (Lopressor Tablet) 25 mg BID PO 05/02/24 10:00 Morphine Sulfate 2 mg Q30M PRN IV FOR CHEST PAIN 05/01/24 23:00 Nitroglycerin (Ntrostat Sublingual) 0.4 mg Q5MINP PRN SL FOR CHEST PAIN 05/01/24 23:00 Ondansetron HCl (Zofran) 4 mg Q4HP PRN IV NAUSEA / VOMITING 05/01/24 23:00 Sodium Chloride (Saline Lock Ns) 10 ml Q8HR IV 05/02/24 06:00 05/02/24 06:40 Atorvastatin Calcium (Lipitor) 20 mg HS PO 05/02/24 21:00 Pantoprazole Sodium (Protonix) 40 mg BID IV 05/02/24 22:00 Spironolactone (Aldactone) 50 mg DAILY PO 05/03/24 10:00 Review of Systems Patient seen and examined at the bedside. Patient is alert and oriented to time, place and person. At present patient reports of mild diffuse abdominal pain. Does not report of any chest pain, dizziness, palpitations, shortness of breath. Patient's blood pressure is 103/55 mmHg, heart rate 78/Min regular, SpO2 95% on room air. Vital Signs Vital Signs Date Time Temp Pulse Resp B/P (MAP) Pulse Ox O2 Delivery O2 Flow Rate FiO2 05/02/24 13:00 98.4 84 16 102/44 (63) 96 98.4 05/02/24 08:30 Room Air* 0 21 Physical Exam Physical Examination Gen - no pallor, no icterus, no cyanosis, no clubbing, no LAD, no edema . Skin - Patients skin is warm and dry.. HEENT - normocephalic, atraumatic, moist mucous membranes. Neck - full ROM, no LAD, no JVD Pulmonary - B/L vesicular breath sounds. no crackles , no wheezing, no stridor. cardiovascular - patient is obese, faint S1,S2 heard. no murmurs heard. peripheral pulses normal radial 2+, pedal 2+. capillary refill normal <2 secs. GI - soft abdomen without tenderness to palpation. no hepatospleenomegaly. Bowel sounds+ Neurological - Patient is A/O X 3 . Bilateral upper extremity strength 5/5, bilateral lower extremity strength 5/5, no facial droop, normal speech, no tremor, no sensory deficiets. Labs/Diagnostic Data Labs Test 05/02/24 13:01 05/02/24 12:00 05/02/24 11:06 05/02/24 05:44 Range/Units Troponin I High Sensitivity 245 *H </=54 ng/L Urine Creatinine 111.74 30.0-125.0 mg/dL Urine Sodium 82 40-220 mmol/L Urine Opiates Screen Neg NEGATIVE Urine Fentanyl Screen Neg NEGATIVE Urine Barbiturates Screen Neg NEGATIVE Urine Phencyclidine Screen Neg NEGATIVE Urine Amphetamines Screen Neg NEGATIVE Urine Benzodiazepines Screen Neg NEGATIVE Urine Cocaine Screen Neg NEGATIVE Urine Cannabinoids Screen Neg NEGATIVE Stool Occult Blood Positive Negative Stool Occult Blood Sample #3 Negative Prothrombin Time 12.4 H 9.3-11.8 sec Prothrombin Time INR 1.18 H 0.9-1.15 Activated Partial Thromboplast Time 31.6 24.5-34.5 SEC Hemoglobin A1c 5.5 <5.7 % A1C Vitamin B12 Level 2530 H 211-911 pg/mL Vitamin D 25-Hydroxy 46.9 30.0-100 ng/mL Thyroid Stimulating Hormone (TSH) 1.03 0.55-4.78 uIU/mL Test 05/02/24 05:43 05/01/24 16:10 05/01/24 13:50 05/01/24 11:30 Range/Units White Blood Count 5.2 4.4-10.8 10^3/uL Red Blood Count 5.52 4.5-5.90 10^6/uL Hemoglobin 16.0 13.5-17.5 g/dL Hematocrit 49.5 41.0-53.0 % Mean Corpuscular Volume 89.6 80.0-100.0 fL Mean Corpuscular Hemoglobin 28.9 28.0-32.0 pg Mean Corpuscular Hemoglobin Concent 32.3 32.0-36.0 g/dL Red Cell Distribution Width 19.9 H 11.8-14.3 % Platelet Count 183 140-450 10^3/uL Mean Platelet Volume 8.8 6.9-10.8 fL Neutrophils (%) (Auto) 49.4 37.0-80.0 % Lymphocytes (%) (Auto) 34.4 10.0-50.0 % Monocytes (%) (Auto) 14.4 H 0.0-12.0 % Eosinophils (%) (Auto) 0.8 0.0-7.0 % Basophils (%) (Auto) 1.0 0.0-2.0 % Neutrophils # (Auto) 2.5 1.6-8.6 10 ^3/uL Lymphocytes # (Auto) 1.8 0.4-5.4 10 ^3/uL Monocytes # (Auto) 0.7 0-1.3 10 ^3/uL Eosinophils # (Auto) 0 0-0.8 10 ^3/uL Basophils # (Auto) 0.1 0-0.2 10 ^3/uL Nucleated Red Blood Cells 0.5 % Sodium Level 135 L 136-145 mmol/L Potassium Level 4.0 3.5-5.1 mmol/L Chloride Level 102 98-107 mmol/L Carbon Dioxide Level 26 20-31 mmol/L Anion Gap 7 5-15 Blood Urea Nitrogen 14 9-23 mg/dL Creatinine 1.79 H 0.700-1.30 mg/dL Glomerular Filtration Rate Calc 49 >90 mL/min BUN/Creatinine Ratio 7.8 L 10.0-20.0 Serum Glucose 83 74-106 mg/dL Calcium Level 10.0 8.7-10.4 mg/dL Total Bilirubin 0.9 0.2-1.0 mg/dL Aspartate Amino Transferase (AST) 85 H 13-40 U/L Alanine Aminotransferase (ALT) 176 H 7-40 U/L Alkaline Phosphatase 100 46-116 U/L B-Type Natriuretic Peptide 25.51 0-100 pg/mL Total Protein 7.0 5.7-8.2 g/dL Albumin 4.3 3.2-4.8 g/dL Lactic Acid Level 0.7 0.4-2.0 mmol/L Reticulocyte Count (auto) 2.87 H 0.5-1.5 % Urine Color Yellow Yellow Urine Clarity Clear Clear Urine pH 5.0 5.0-9.0 Urine Specific [place] 1.023 1.001-1.035 Urine Protein Negative Negative Urine Ketones Negative Negative Urine Blood Negative Negative /uL Urine Nitrite Negative Negative Urine Bilirubin Negative Negative Urine Urobilinogen Normal Negative mg/dL Urine Leukocyte Esterase Negative Negative /uL Urine RBC 1 0 - 3 /hpf Urine WBC <1 0 - 3 /hpf Urine Squamous Epithelial Cells Few <5 /hpf Urine Bacteria None seen None Seen /hpf Urine Glucose 4+ H Normal mg/dL Plan/Recommendation Assessment and plan # acute on chronic heart failure with preserved ejection fraction - echo done in November 29, 2023 shows LVEF 60% with remarkably thickened interventricular septum - patient is on verquvo, empagliflozin, metoprolol tartrate, spironolactone - management as per hospitalist # ANGELO on CKD likely prerenal d/t VMN - serum creatinine 1.92--> 1.79 - GFR 45--> 49 - urine creatinine 111.74, urine sodium 82 - FENa 1% - continue spironolactone 50 mg once daily - continue bumetanide 1 mg once daily # hyperkalemia likely iatrogenic -elevated potassium at 5.4 on admission - patient was given 1 dose of Lokelma - patient was taking potassium at home - advised to stop taking potassium - potassium level now at 4 # NSTEMI likely type 2 - elevated troponins - echocardiogram did not show any evidence of ischemia no ST segment elevation - management as per hospitalist # paroxysmal atrial fibrillation - patient is on amiodarone 200 mg p.o. b.i.d. - managed as per hospitalist Goals of care discussed with the patient and his for over 20 minutes. Full code. Plan discussed with Patient seen and examined by myself today around with the medicine resident I agree with the assessment and plan as documented above by the medicine resident Plan discussed with: Patient, Spouse JOSE BOATENG RESIDENT May 02, 2024 18:32 BRIANDA CARTER MD May 02, 2024 21:32
--- NOTE | 2024-05-02 20:57 | DVHSR ---
APPROVED REPORT EXAM: Two-dimensional and M-mode echocardiogram with Doppler, color Doppler and Optison. Blood Pressure: 98/56 mmHg INDICATION Elevated Trop RISK FACTORS Height: 5'7", Weight: 250 DIMENSIONS LVDd3.9 (3.8-5.7cm)LA (2D)4.7 (1.9-4.0cm)Aortic Root (2.0-3.7cm) LVDs2.5 (2.5-4.0cm)LA (MM) (1.9-4.0cm)Aortic Cusp Exc (1.5-2.0cm) EF (%) 65.0 (55-70%)Rt. Atrium (1.9-4.0cm)Asc. Aorta cm IVSd2.1 (0.7-1.1cm)RV (D) (1.8-2.4cm) PWd1.2 (0.7-1.1cm) Mitral Valve MitralMitral Stenosis E wave0.41m/sMV Mean GR.mmHg A wave0.38m/sMV Peak GR.mmHg E/A ratio1.12D MVAcm2 DECEL [id number] 1/2 Timems Aortic Valve Aortic ValveAortic Stenosis V1m/Nadeem Mean GR.5mmHg V21.43m/Nadeem Peak GR.8mmHg LVOT Diameter2.2 (1.8-2.4cm)Doppler AVAcm2 Pulmonic Valve V20.75m/s Other Information Quality : Technically LimitedRhythm : Technically limited study due to body habitus. Conclusion SEVERE LVH SEVERE LV DIASTOLIC DYSFUNCTION INAPPROPRIATE HYPERTROPHY OF IVS DURING SYSTOLE OF LV ,SYSTOLIC ANTERIOR MOTION OF MITRAL LEAFLET IT IS IDIOPATHIC HYPERTROPHIC SUBAORTIC STENOSIS LV EJECTION FRACTION IS 65% NO EFFUSION PACEMAKER in RIGHT CARDIAC CHAMBERS NO EFFUSON NORMAL VALVES
[2024-05-02] MEDS: ATORVASTATIN 20 MG TAB PO SCH (21:01)
--- NOTE | 2024-05-02 22:36 | DVHINCON2 ---
Date of service: May 02, 2024 Referring Physician Aly Reason for Consultation Elevated troponin History of Present Illness This is a 38 year old obese male with a PMH of AFIB, CHF, Gout, HTN, [place], hypertrophic cardiomyopathy, and defibrillator placement who presented to the ED with complaints of abdominal pain since Wednesday with nausea, vomiting, and blood in stool. CT abd/pel shows no definite acute abdominopelvic abnormalities. Renal US is unremarkable. Chest x-ray shows NAD. CBC is unremarkable. Troponin 234 > 236 > 238. K5.4, Housekeeping Aide 1.92. EKG shows normal sinus rhythm with prolonged ND interval. Patient has a history of 2 left heart catheterization which were unremarkable. Patient sees [facility] and has a follow up appointment for surgical management of hypertrophic cardiomyopathy. Patient was admitted to the hospital. I am asked to consult on this patient. Family History: Cardiovascular disease Diabetes mellitus G8 FATHER FH: CHF (congestive heart failure) G8 FATHER Allergies: Coded Allergies: NO KNOWN ALLERGIES (Unverified , 03/15/19) Home Meds Active Scripts Metoprolol Tartrate (Lopressor) 25 Mg Tb, 25 MG PO BID for 30 Days, #60 TAB Prov:KENNEDY CARVER 12/01/23 Ergocalciferol (VITAMIN D 04690 UNIT) 50,000 [place], [address] UNIT PO Q7D for 30 Days, #10 CAP Prov:KENNEDY CARVER 12/01/23 Amiodarone HCl (Amiodarone HCl) 200 Mg Tab, 200 MG PO BID for 30 Days, #60 TAB Prov:KENNEDY CARVER 12/01/23 Empagliflozin (Jardiance) 10 Mg Tab, 10 MG PO QAM for 30 Days, #30 TAB 3 Refills Prov:ANSLEY ORTEGA MD 07/09/22 Atorvastatin Calcium (ATORVASTATIN CALCIUM) 20 Mg Tab, 1 TAB PO DAILY, #30 TAB 5 Refills Prov:JESSICA GRESHAM MD 05/16/22 Clopidogrel Bisulfate (Plavix) 75 Mg Tab, 1 TAB PO DAILY, #30 TAB 1 Refill Prov:JESSICA GRESHAM MD 05/16/22 Reported Medications Semaglutide (Wegovy) 2.4 Mg/0.75 Ml Inj, 2.4 MG SC ONCE, INJ 05/01/24 Ferric Citrate (Auryxia) 210 Mg Tab, 210 MG PO TID, TAB 05/01/24 Mycophenolate Mofetil (Cellcept) 500 Mg Tab, 2 TAB PO BID, #360 TAB 3 Refills 05/01/24 Mavacamten (Camzyos) 5 Mg Cap, 5 MG PO DAILY, CAP 05/01/24 Bumetanide (Bumex) 2 Mg Tab, 1 MG PO DAILY 11/29/23 Vericiguat (Verquvo) 2.5 Mg Tab, 2.5 MG PO DAILY, TAB 11/29/23 Spironolactone (Spironolactone) 100 Mg Tab, 100 MG PO BID, TAB 11/29/23 Allopurinol (Allopurinol) 100 Mg Tab, 200 MG PO DAILY, TAB 10/25/20 Current Medications Current Medications Medications (Trade) Dose Ordered Sig/Kathleen Route PRN Reason Start Time Stop Time Status Last Admin Sodium Chloride (Saline Lock Ns) 10 ml Q8HR IV 05/01/24 22:00 05/01/24 22:57 DC 05/01/24 21:56 Pantoprazole Sodium (Protonix) 40 mg DAILY IV 05/02/24 10:00 05/02/24 10:51 DC 05/02/24 09:06 Amiodarone HCl (Cordarone Tablet) 200 mg BID PO 05/01/24 22:00 05/01/24 18:03 DC Atorvastatin Calcium (Lipitor) 20 mg DAILY PO 05/02/24 10:00 05/01/24 18:03 DC Empaglifozin (Jardiance) 10 mg QAM PO 05/02/24 07:00 05/01/24 18:03 DC Metoprolol Tartrate (Lopressor Tablet) 25 mg BID PO 05/01/24 22:00 05/01/24 18:03 DC Patient Own Medication 1 mg DAILY PO 05/02/24 10:00 05/01/24 18:03 DC Patient Own Medication 100 mg BID PO 05/01/24 22:00 05/01/24 18:03 DC Patient Own Medication 2.5 mg DAILY PO 05/02/24 10:00 05/01/24 18:03 DC Amiodarone HCl (Cordarone Tablet) 200 mg BID PO 05/01/24 22:00 05/02/24 21:02 Atorvastatin Calcium (Lipitor) 20 mg DAILY PO 05/02/24 10:00 05/01/24 22:48 DC Empaglifozin (Jardiance) 10 mg QAM PO 05/02/24 07:00 05/01/24 22:49 DC Ergocalciferol (Vitamin D 50,000 Unit) 50,000 unit Q7D PO 05/02/24 10:00 05/01/24 22:49 DC Metoprolol Tartrate (Lopressor Tablet) 25 mg BID PO 05/01/24 22:00 05/01/24 22:52 DC 05/01/24 21:55 Bumetanide (Bumex Tablet) 1 mg DAILY PO 05/02/24 10:00 05/01/24 22:48 DC Spironolactone (Aldactone) 100 mg BID PO 05/02/24 10:00 05/02/24 11:06 DC 05/02/24 08:45 Patient Own Medication 2.5 mg DAILY PO 05/02/24 10:00 05/02/24 18:29 DC Acetaminophen/ Hydrocodone Bitart (Vallejo 5/325MG Tab) 1 tab Q4HP PRN PO MODERATE PAIN (4-6 PAIN SCALE) 05/01/24 23:00 05/02/24 09:12 Acetaminophen (Tylenol Tablet) 650 mg Q6HP PRN PO PAIN SCALE 1-3 OR TEMP>100.4 05/01/24 23:00 Atorvastatin Calcium (Lipitor) 20 mg DAILY PO 05/02/24 10:00 05/02/24 07:53 DC Bumetanide (Bumex Tablet) 1 mg DAILY PO 05/02/24 10:00 05/02/24 11:06 DC 05/02/24 08:45 Docusate Sodium (Colace Capsule) 100 mg BIDPRN PRN PO FOR CONSTIPATION 05/01/24 23:00 Empaglifozin (Jardiance) 10 mg QAM PO 05/02/24 07:00 05/02/24 06:39 Ergocalciferol (Vitamin D 50,000 Unit) 50,000 unit Q7D PO 05/01/24 23:00 05/02/24 06:43 Hydromorphone HCl (Dilaudid Injection) 0.5 mg Q4HP PRN IV SEVERE PAIN (7-10 PAIN SCALE) 05/01/24 23:00 05/01/24 22:51 DC Hydromorphone HCl (Dilaudid Injection) 0.5 mg Q4HP PRN IV SEVERE PAIN (7-10 PAIN SCALE) 05/01/24 23:00 Metoprolol Tartrate (Lopressor Tablet) 25 mg BID PO 05/02/24 10:00 05/02/24 21:01 Morphine Sulfate 2 mg Q30M PRN IV FOR CHEST PAIN 05/01/24 23:00 Nitroglycerin (Ntrostat Sublingual) 0.4 mg Q5MINP PRN SL FOR CHEST PAIN 05/01/24 23:00 Ondansetron HCl (Zofran) 4 mg Q4HP PRN IV NAUSEA / VOMITING 05/01/24 23:00 Sodium Chloride (Saline Lock Ns) 10 ml Q8HR IV 05/02/24 06:00 05/02/24 21:01 Atorvastatin Calcium (Lipitor) 20 mg HS PO 05/02/24 21:00 05/02/24 21:06 Pantoprazole Sodium (Protonix) 40 mg BID IV 05/02/24 22:00 05/02/24 21:01 Spironolactone (Aldactone) 50 mg DAILY PO 05/03/24 10:00 Patient Own Medication 10 mg DAILY PO 05/03/24 10:00 Review of Systems Constitutional: denies: chills, diaphoresis, fatigue, fever, malaise, sweats, weakness, others EENTM: denies: blurred vision, double vision, ear bleeding, ear discharge, ear drainage, ear pain, ear ringing, eye pain, eye redness, hearing loss, mouth pain, mouth swelling, nasal discharge, nose bleeding, nose congestion, nose pain, photophobia, tearing, throat pain, throat swelling, voice changes, others Respiratory: denies: cough, hemoptysis, orthopnea, SOB at rest, shortness of breath, SOB with excertion, stridor, wheezing, others Cardiovascular: denies: chest pain, dizzy spells, diaphoresis, Dyspnea on exertion, edema, irregular heart beat, left arm pain, lightheadedness, palpitations, PND, syncope, others Gastrointestinal: reports: abdominal pain, blood streaked bowels, nausea, vomiting; denies: abdomen distended, constipated, diarrhea, dysphagia, difficulty swallowing, hematemesis, melena, poor appetite, poor fluid intake, rectal bleeding, rectal pain, others Genitourinary: denies: burning, dysuria, flank pain, frequency, hematuria, incontinence, penile discharge, penile sore, pain, testicle pain, testicle swelling, urgency, others Neurological: denies: dizziness, fainting, headache, left sided numbness, left sided weakness, numbness, paresthesia, pre-existing deficit, right sided numbness, right sided weakness, seizure, speech problems, tingling, tremors, weakness, others Musculoskeletal: denies: back pain, gout, joint pain, joint swelling, muscle pain, muscle stiffness, neck pain, others Integumetry: denies: bruises, change in color, change in hair/nails, dryness, laceration, lesions, lumps, rash, wounds, others Allergic/Immunocompromised: denies: Difficulty Healing, Frequent Infections, Hives, Itching, others Hematologic/Lymphatic: denies: anemia, blood clots, easy bleeding, easy bruising, swollen glands, others Endocrine: denies: excessive hunger, excessive sweating, excessive thirst, excessive urination, flushing, intolerance to cold, intolerance to heat, unexplained weight gain, unexplained weight loss, others Psychiatric: denies: anxiety, bipolar disorder, depression, hopeless, panic disorder, schizophrenia, sleepless, suicidal, others All Other Systems: Reviewed and Negative Vital Signs Vital Signs Date Time Temp Pulse Resp B/P (MAP) Pulse Ox O2 Delivery O2 Flow Rate FiO2 05/02/24 21:01 81 99/55 05/02/24 17:00 98.3 16 98 98.3 05/02/24 08:30 Room Air* 0 21 Physical Exam GENERAL: Awake, alert, oriented .Obese. LUNGS: Clear. CARDIOVASCULAR: Heart sounds are good. ABDOMEN: Soft. Labs/Diagnostic Data Labs Test 05/02/24 13:01 05/02/24 12:00 05/02/24 11:06 05/02/24 05:44 Range/Units Troponin I High Sensitivity 245 *H </=54 ng/L Urine Creatinine 111.74 30.0-125.0 mg/dL Urine Sodium 82 40-220 mmol/L Urine Opiates Screen Neg NEGATIVE Urine Fentanyl Screen Neg NEGATIVE Urine Barbiturates Screen Neg NEGATIVE Urine Phencyclidine Screen Neg NEGATIVE Urine Amphetamines Screen Neg NEGATIVE Urine Benzodiazepines Screen Neg NEGATIVE Urine Cocaine Screen Neg NEGATIVE Urine Cannabinoids Screen Neg NEGATIVE Stool Occult Blood Positive Negative Stool Occult Blood Sample #3 Negative Prothrombin Time 12.4 H 9.3-11.8 sec Prothrombin Time INR 1.18 H 0.9-1.15 Activated Partial Thromboplast Time 31.6 24.5-34.5 SEC Hemoglobin A1c 5.5 <5.7 % A1C Vitamin B12 Level 2530 H 211-911 pg/mL Vitamin D 25-Hydroxy 46.9 30.0-100 ng/mL Thyroid Stimulating Hormone (TSH) 1.03 0.55-4.78 uIU/mL Test 05/02/24 05:43 05/01/24 16:10 05/01/24 13:50 05/01/24 11:30 Range/Units White Blood Count 5.2 4.4-10.8 10^3/uL Red Blood Count 5.52 4.5-5.90 10^6/uL Hemoglobin 16.0 13.5-17.5 g/dL Hematocrit 49.5 41.0-53.0 % Mean Corpuscular Volume 89.6 80.0-100.0 fL Mean Corpuscular Hemoglobin 28.9 28.0-32.0 pg Mean Corpuscular Hemoglobin Concent 32.3 32.0-36.0 g/dL Red Cell Distribution Width 19.9 H 11.8-14.3 % Platelet Count 183 140-450 10^3/uL Mean Platelet Volume 8.8 6.9-10.8 fL Neutrophils (%) (Auto) 49.4 37.0-80.0 % Lymphocytes (%) (Auto) 34.4 10.0-50.0 % Monocytes (%) (Auto) 14.4 H 0.0-12.0 % Eosinophils (%) (Auto) 0.8 0.0-7.0 % Basophils (%) (Auto) 1.0 0.0-2.0 % Neutrophils # (Auto) 2.5 1.6-8.6 10 ^3/uL Lymphocytes # (Auto) 1.8 0.4-5.4 10 ^3/uL Monocytes # (Auto) 0.7 0-1.3 10 ^3/uL Eosinophils # (Auto) 0 0-0.8 10 ^3/uL Basophils # (Auto) 0.1 0-0.2 10 ^3/uL Nucleated Red Blood Cells 0.5 % Sodium Level 135 L 136-145 mmol/L Potassium Level 4.0 3.5-5.1 mmol/L Chloride Level 102 98-107 mmol/L Carbon Dioxide Level 26 20-31 mmol/L Anion Gap 7 5-15 Blood Urea Nitrogen 14 9-23 mg/dL Creatinine 1.79 H 0.700-1.30 mg/dL Glomerular Filtration Rate Calc 49 >90 mL/min BUN/Creatinine Ratio 7.8 L 10.0-20.0 Serum Glucose 83 74-106 mg/dL Calcium Level 10.0 8.7-10.4 mg/dL Total Bilirubin 0.9 0.2-1.0 mg/dL Aspartate Amino Transferase (AST) 85 H 13-40 U/L Alanine Aminotransferase (ALT) 176 H 7-40 U/L Alkaline Phosphatase 100 46-116 U/L B-Type Natriuretic Peptide 25.51 0-100 pg/mL Total Protein 7.0 5.7-8.2 g/dL Albumin 4.3 3.2-4.8 g/dL Lactic Acid Level 0.7 0.4-2.0 mmol/L Reticulocyte Count (auto) 2.87 H 0.5-1.5 % Urine Color Yellow Yellow Urine Clarity Clear Clear Urine pH 5.0 5.0-9.0 Urine Specific [place] 1.023 1.001-1.035 Urine Protein Negative Negative Urine Ketones Negative Negative Urine Blood Negative Negative /uL Urine Nitrite Negative Negative Urine Bilirubin Negative Negative Urine Urobilinogen Normal Negative mg/dL Urine Leukocyte Esterase Negative Negative /uL Urine RBC 1 0 - 3 /hpf Urine WBC <1 0 - 3 /hpf Urine Squamous Epithelial Cells Few <5 /hpf Urine Bacteria None seen None Seen /hpf Urine Glucose 4+ H Normal mg/dL Assessment Probable GI bleed. NSTEMI. ANGELO on CKD 3 a. Diastolic congestive heart failure. Atrial fibrillation. Hypertrophic cardiomyopathy status post AICD placement. Idiopathic subaortic stenosis. Hyperkalemia. Hepatic steatosis. Obstructive sleep apnea. Plan/Recommendation I agree with your ongoing assessment and care of plan. Seen with nurse Yesika. Patient is cardiac cleared. Echocardiogram. Dilaudid and Vallejo for pain management. Amiodarone. Lipitor, Metoprolol. Jardiance. GI prophylactics. Additional plan as per the hospital course. A total of 45 minutes was spent reviewing the patient record, examining the patient, making a diagnostic and therapeutic plan, discussing this plan with medical personnel, following up on diagnostic studies and following the patient for clinical stability excluding any and all procedures. At least 50% of this time was spent in direct, [id number] contact. Plan discussed with: Patient TONYA HOLMAN MD May 02, 2024 21:28
[2024-05-03 05:00] VITALS: BP 108/61; PULSE 65; RESP 16; TEMP 97.4; O2SAT 96
[2024-05-03 05:06] LABS: Basophils # (auto) 0 10 ^3/uL (0-0.2); Basophils % (auto) 0.8 % (0.0-2.0); Eosinophils # (auto) 0 10 ^3/uL (0-0.8); Eosinophils % (auto) 0.6 % (0.0-7.0); Hematocrit 47.6 % (41.0-53.0); Hemoglobin 15.7 g/dL (13.5-17.5); Lymphocytes # (auto) 1.4 10 ^3/uL (0.4-5.4); Lymphocytes % (auto) 28.3 % (10.0-50.0); Mean Corpuscular Hemoglobin 29.3 pg (28.0-32.0); Mean Corpuscular Hgb Conc. 33.1 g/dL (32.0-36.0); Mean Corpuscular Volume 88.7 fL (80.0-100.0); Monocytes # (auto) 0.7 10 ^3/uL (0-1.3); Monocytes % (auto) 15.3 % (0.0-12.0); Neutrophils # (auto) 2.7 10 ^3/uL (1.6-8.6); Nucleated Red Blood Cells % 0.1 %; Platelet Count (auto) 178 10^3/uL (140-450); Red Blood Cells 5.36 10^6/uL (4.5-5.90); Red Cell Distribution Width 19.7 % (11.8-14.3); White Blood Cell 4.9 10^3/uL (4.4-10.8)
[2024-05-03 05:24] LABS: COVID19 ANTIGEN SOFIA FIA NEGATIVE (NEGATIVE)
[2024-05-03 05:26] LABS: Alanine Aminotransferase 142 U/L (7-40); Albumin 4.2 g/dL (3.2-4.8); Alkaline Phosphatase 73 U/L (46-116); Anion Gap 7 (5-15); Aspartate Aminotransferase 62 U/L (13-40); BUN/Creatinine Ratio 8.9 (10.0-20.0); Bilirubin, Total 1.5 mg/dL (0.2-1.0); Blood Urea Nitrogen 16 mg/dL (9-23); Calcium 9.9 mg/dL (8.7-10.4); Carbon Dioxide 24 mmol/L (20-31); Chloride 102 mmol/L (98-107); Glucose 74 mg/dL (74-106); Potassium 4.3 mmol/L (3.5-5.1); Sodium 133 mmol/L (136-145); Total Protein 6.7 g/dL (5.7-8.2)
[2024-05-03 08:00] VITALS: PULSE 80
[2024-05-03 09:00] VITALS: BP 105/62; PULSE 79; RESP 18; TEMP 98.4; O2SAT 97
[2024-05-03] MEDS ORDERED: PATIENTS OWN MEDICATION PO SCH (10:00)
[2024-05-03] MEDS: SPIRONOLACTONE 25 MG TAB PO SCH (10:20)
[2024-05-03] MEDS: EMPAGLIFLOZIN 10 MG TAB PO SCH (10:20)
[2024-05-03] MEDS: VERQUVO 2.5 MG PO SCH (10:45)
[2024-05-03 13:00] VITALS: BP 101/63; PULSE 78; RESP 20; TEMP 98; O2SAT 98
--- NOTE | 2024-05-03 13:18 | DVHDSRES ---
Discharge Summary Date of Admission Resident Creating Document: ANISH MICHAEL RESIDENT May 01, 2024 at 17:07 Date of Discharge: May 03, 2024 Admitting Diagnosis Severe epigastric pain Labs/Diagnostic Data: Laboratory Results Test 05/03/24 04:45 05/03/24 04:43 05/02/24 13:01 05/02/24 12:00 SARS-CoV-2 Antigen (Rapid) Negative (NEGATIVE) White Blood Count 4.9 10^3/uL (4.4-10.8) Red Blood Count 5.36 10^6/uL (4.5-5.90) Hemoglobin 15.7 g/dL (13.5-17.5) Hematocrit 47.6 % (41.0-53.0) Mean Corpuscular Volume 88.7 fL (80.0-100.0) Mean Corpuscular Hemoglobin 29.3 pg (28.0-32.0) Mean Corpuscular Hemoglobin Concent 33.1 g/dL (32.0-36.0) Red Cell Distribution Width 19.7 % (11.8-14.3) Platelet Count 178 10^3/uL (140-450) Mean Platelet Volume 8.4 fL (6.9-10.8) Neutrophils (%) (Auto) 55.0 % (37.0-80.0) Lymphocytes (%) (Auto) 28.3 % (10.0-50.0) Monocytes (%) (Auto) 15.3 % (0.0-12.0) Eosinophils (%) (Auto) 0.6 % (0.0-7.0) Basophils (%) (Auto) 0.8 % (0.0-2.0) Neutrophils # (Auto) 2.7 10 ^3/uL (1.6-8.6) Lymphocytes # (Auto) 1.4 10 ^3/uL (0.4-5.4) Monocytes # (Auto) 0.7 10 ^3/uL (0-1.3) Eosinophils # (Auto) 0 10 ^3/uL (0-0.8) Basophils # (Auto) 0 10 ^3/uL (0-0.2) Nucleated Red Blood Cells 0.1 % Sodium Level 133 mmol/L (136-145) Potassium Level 4.3 mmol/L (3.5-5.1) Chloride Level 102 mmol/L (98-107) Carbon Dioxide Level 24 mmol/L (20-31) Anion Gap 7 (5-15) Blood Urea Nitrogen 16 mg/dL (9-23) Creatinine 1.80 mg/dL (0.700-1.30) Glomerular Filtration Rate Calc 48 mL/min (>90) BUN/Creatinine Ratio 8.9 (10.0-20.0) Serum Glucose 74 mg/dL (74-106) Calcium Level 9.9 mg/dL (8.7-10.4) Total Bilirubin 1.5 mg/dL (0.2-1.0) Aspartate Amino Transferase (AST) 62 U/L (13-40) Alanine Aminotransferase (ALT) 142 U/L (7-40) Alkaline Phosphatase 73 U/L (46-116) Total Protein 6.7 g/dL (5.7-8.2) Albumin 4.2 g/dL (3.2-4.8) Troponin I High Sensitivity 245 ng/L (</=54) Urine Creatinine 111.74 mg/dL (30.0-125.0) Urine Sodium 82 mmol/L (40-220) Urine Opiates Screen Neg (NEGATIVE) Urine Fentanyl Screen Neg (NEGATIVE) Urine Barbiturates Screen Neg (NEGATIVE) Urine Phencyclidine Screen Neg (NEGATIVE) Urine Amphetamines Screen Neg (NEGATIVE) Urine Benzodiazepines Screen Neg (NEGATIVE) Urine Cocaine Screen Neg (NEGATIVE) Urine Cannabinoids Screen Neg (NEGATIVE) Test 05/02/24 11:06 05/02/24 05:44 05/02/24 05:43 05/01/24 16:10 Stool Occult Blood Positive (Negative) Stool Occult Blood Sample #3 (Negative) Prothrombin Time 12.4 sec (9.3-11.8) Prothrombin Time INR 1.18 (0.9-1.15) Activated Partial Thromboplast Time 31.6 SEC (24.5-34.5) Hemoglobin A1c 5.5 % A1C (<5.7) Vitamin B12 Level 2530 pg/mL (211-911) Vitamin D 25-Hydroxy 46.9 ng/mL (30.0-100) Thyroid Stimulating Hormone (TSH) 1.03 uIU/mL (0.55-4.78) B-Type Natriuretic Peptide 25.51 pg/mL (0-100) Lactic Acid Level 0.7 mmol/L (0.4-2.0) Test 05/01/24 13:50 05/01/24 11:30 Reticulocyte Count (auto) 2.87 % (0.5-1.5) Urine Color Yellow (Yellow) Urine Clarity Clear (Clear) Urine pH 5.0 (5.0-9.0) Urine Specific [place] 1.023 (1.001-1.035) Urine Protein Negative (Negative) Urine Ketones Negative (Negative) Urine Blood Negative /uL (Negative) Urine Nitrite Negative (Negative) Urine Bilirubin Negative (Negative) Urine Urobilinogen Normal mg/dL (Negative) Urine Leukocyte Esterase Negative /uL (Negative) Urine RBC 1 /hpf (0 - 3) Urine WBC <1 /hpf (0 - 3) Urine Squamous Epithelial Cells Few /hpf (<5) Urine Bacteria None seen /hpf (None Seen) Urine Glucose 4+ mg/dL (Normal) Other Laboratory Tests 05/03/24 04:43 Brief Hx & Hospital Course: This is a 38-year-old male patient with PMHx of atrial fibrillation, who comes status post AICD placed for secondary prevention (V-tach), left heart catheterization [address] Gay, idiopathic subaortic stenosis, diastolic congestive heart failure LVEF 60%, gout, obstructive sleep apnea, obesity unremarkable, CKD 3A, prediabetes, hypertension presented to the ER with a chief complaint of abdominal pain and fresh blood per rectum starting 04/28/2024. Patient reports severe abdominal pain located in the epigastric region associated with nausea and vomiting, intermittent in nature. He also reports fresh red blood in his stool, does not know if it is mixed with the stool or comes at the end, ongoing for the past 2 days. Says that everything started after his PCP Dr. Jeronimo Gay started Plavix 2 weeks earlier. He has noticed blood in his bowel movement at least twice. No lifetime history of colonoscopy/endoscopy. Per patient, he had a stress test in July this year at [facility] which was unremarkable for ischemia. Home medications: Metoprolol 25 b.i.d., amiodarone 200 b.i.d., Bumex, Plavix, spironolactone, atorvastatin, Jardiance, allopurinol, [place], [place] PCP, Dr. Jeronimo Gay, Parachute/Combatant Diver Officer Dr. 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 Stool occult positive. IV pantoprazole b.i.d. 40 mg was started. GI consulted- started clear liquid diet, continue Protonix and Zofran. Possible plan at this time for outpatient elective colonoscopy. Hemoglobin/hematocrit 16/49. Patient also had NSTEMI likely type 2. Troponin 234, 236, 238, 257, 245. BNP 25. EKG reviewed, shows normal sinus rhythm with prolonged TX interval. Parachute/Combatant Diver Officer Dr. Gay mentioned patient had 2 left heart catheterization which were unremarkable. Patient is cleared as per Cardiology. Recommended prophylactic antibiotics prior to any procedures. . Patient sees [facility] and has a follow up appointment for surgical management of hypertrophic cardiomyopathy. Echocardiogram showed severe LVH, severe LV diastolic dysfunction, systolic anterior motion of mitral leaflet. Idiopathic hypertrophic subaortic stenosis. LVEF is 65%. Normal valves and no effusion. Laboratory workup also showed hyperkalemia 5.2 on arrival, patient was taking potassium supplements at home which were discontinued. Patient received 1 dose of Lokelma. Spironolactone was decreased to 50 mg by Nephrology. Bumex was held given the blood pressure 100 by 60 mmHg. Patient's creatinine elevated at 1.92 on admission, which downtrended to 1.79 which is his baseline. FENA was 1.0 which is of undetermined significance. Patient had history of atrial fibrillation, was sinus rhythm per telemetry. We continued his home medication amiodarone and metoprolol. 05/03/2024 - patient is clinically stable, tolerating clear diet and consequently soft diet well, has no active complaint and is therefore discharged home with the strong recommendation to follow Cardiology and GI outpatient within 7-14 days. Patient is also advised to repeat BNP test within 7 days of discharge to monitor his potassium level. Examination Obese male patient lying in bed, in no acute distress, and family members at bedside General: Obese, afebrile, palor, mucosae are moist Cardiovascular: Regular S1 and S2. No murmurs, gallops or rubs. No JVD elevation. No pedal edema Respiratory: Normal B/L air entry on room air. Clear lung sounds on auscultation Abdomen: Soft, nontender, nondistended, normoactive bowel sounds, no rebound tenderness, no organomegaly, no masses. Rectal exam performed, anal tone is intact, no no hemorrhoids or masses felt, prostate is enlarged, stool sample collected which is yellow and not bloody. Sent for occult blood. Genitourinary: Deferred MSK/skin: Mobilizes 4 limbs. Skin is dry and warm Neurological: No motor, no sensitive deficits, normal speech. Pupils are isocoric and reactive. Psych/Mental Status: A/Ox4 Consults/Reason for consult Cardiology consulted for elevated GI consulted for probable GI bleed Operations or Procedures ORDERING PHYSICIAN: NESHA RICHTER PROCEDURE(s): GBUS - GALLBLADDER REASON: transaminitis ORDER NUMBER(s): [id number], ACCESSION NUMBER(s): [id number] ULTRASOUND ABDOMEN limited INDICATION: Pain. TECHNIQUE: Multiple real-time sonographic images of the abdomen were obtained. COMPARISON: None FINDINGS: Visualized liver parenchyma appears echogenic consistent with steatosis. There is no intrahepatic biliary ductal dilatation. There is no obvious hepatic lesion. There is no evidence of gallstones, gallbladder wall thickening or pericholecystic fluid. The common biliary duct is not dilated. The right kidney measures 11.5 cm. No hydronephrosis. The pancreas is obscured by bowel gas. IMPRESSION: 1. Hepatic steatosis. HS:Y ORDERING PHYSICIAN: ANISH MICHAEL PROCEDURE(s): CXR1 - CHEST XRAY 1 VIEW REASON: chf ORDER NUMBER(s): [id number], ACCESSION NUMBER(s): [id number] CHEST RADIOGRAPH Indication:chf Technique: Single frontal view of the chest was obtained COMPARISON: XY CHEST XRAY 1 VIEW on DOS: 11/29/23, CHEST PORTABLE on DOS: 05/14/22, CXRP on DOS: 05/14/22 FINDINGS: Lines and Tubes: Left chest wall AICD Lungs: Clear Pleura: No effusion. No pneumothorax. Cardiomediastinal contours: Unremarkable Bones: Unremarkable IMPRESSION: No acute disease. ATED BY: JONA MONTOYA MD DICTATED DATE/TIME: 05/02/24 1034 SIGNED BY: JONA MONTOYA MD SIGNED DATE/TIME: 05/02/24 1034 CC: ORDERING PHYSICIAN: KIYA KNIGHT MD PROCEDURE(s): KIDUS - KIDNEY REASON: angelo on ckd ORDER NUMBER(s): [id number], ACCESSION NUMBER(s): [id number] INDICATION: ANGELO on CKD. TECHNIQUE: Multiple real-time sonographic images of the kidneys and bladder were obtained. COMPARISON: None FINDINGS: RIGHT kidney measures 10.8 cm in length. Normal cortical thickness and echogenicity. No focal lesions or stones are identified. No hydronephrosis. LEFT kidney measures 11.2 cm in length. Normal cortical thickness and echogenicity. No focal lesions or stones are identified. No hydronephrosis. No large intraluminal masses are seen in the bladder. Prevoid urinary bladder volume 519 cc. No postvoid images are provided. IMPRESSION: 1. Unremarkable examination. HS:Y ATED BY: KIYA RODRIGUEZ DO DICTATED DATE/TIME: 05/01/241835 SIGNED BY: KIYA RODRIGUEZ DO SIGNED DATE/TIME: 05/01/241835 CC: ORDERING PHYSICIAN: KIYA KNIGHT MD PROCEDURE(s): ABPL - CT AB PEL WO CON-NO ORAL OR IV REASON: eval for intra-abdominal infection ORDER NUMBER(s): [id number], ACCESSION NUMBER(s): [id number] Exam: CT CT AB PEL WO CON-NO ORAL OR IV History: eval for intra-abdominal infection Comparison Study: [facility] on DOS: 05/07/22, [facility] on DOS: 10/02/21 TECHNIQUE: Multidetector CT of the abdomen and pelvis was performed from lung bases to pubic symphysis. Imaging was performed without IV contrast. Axial, coronal, and sagittal multiplanar reformats were obtained from the axial data set by the technologist. RADIATION DOSE: DLP 1437.76 mGy.cm; CTDI vol 23.17 mGy. Findings: Limited evaluation given noncontrast technique. Lungs: Right lower lobe peripheral groundglass opacities Heart: The visualized heart is unremarkable. No cardiomegaly or pericardial effusion. Liver: Unremarkable. Gallbladder: Unremarkable. Spleen: Unremarkable Pancreas: Unremarkable Adrenals: Unremarkable Kidneys: Unremarkable GI tract: Unremarkable : The urinary bladder is decompressed. Vasculature: Unremarkable Lymphadenopathy: Absent Peritoneum: No ascites Musculoskeletal: Unremarkable Soft tissues: Bilateral gynecomastia Impression: 1. Limited evaluation given noncontrast technique. 2. No definite acute abdominopelvic abnormalities. ATED BY: NATALYA ORONA DO DICTATED DATE/TIME: 05/01/241936 SIGNED BY: NATALYA ORONA DO SIGNED DATE/TIME: 05/01/241936 Condition at Discharge: Stable Final Diagnosis/Problems List Probable GI bleed - outpatient colonoscopy NSTEMI likely type 2 Hypertrophic cardiomyopathy status post AICD placement for secondary prevention (history of V-tach) Idiopathic subaortic stenosis ANGELO due to questionable vasomotor nephropathy on CKD 3A Diastolic congestive heart failure - no exacerbation - LV ejection fraction 60% Paroxysmal Atrial fibrillation - controlled Probable first-degree AV block Hyperkalemia secondary to over supplementation resolved Hepatic steatosis Obstructive sleep apnea Vitamin-D deficiency Discharge Disposition: Home Discharge Instruct/Medications Diet: Cardiac 2g Na,low cholest Activity: No Restrictions, As Tolerated Follow Up/Referral: f/u with PCP/Parachute/Combatant Diver Officer and GI within 1-2 weeks Repeat BMP within 7 days to follow up with potassium levels Discharge Statement: "Patient was advised to return to the ER or call 911 if any headaches, dizziness, shortness of breath, chest pain, abdominal pain, bleeding, fevers, or worsening of medical condition. Patient was counseled about treatment plan, medications, possible side effects, patientverbalized understanding. All questions were answered to the best of my ability. This discharge took greater then 30 minutes in planning, reviewing documentation, counseling the patient, and discussing with other team members." ASSESSMENT ASSESSMENT Assessment gi bleed Date of Service: May 03, 2024 Billing Provider: ROSY PASCAL MD Common Visit Codes: 46084-YOU/OBS DISCH DAY >30min ANISH MICHAEL RESIDENT May 03, 2024 13:18 ROSY PASCAL MD May 04, 2024 10:39
--- NOTE | 2024-05-03 15:14 | DVHPN2 ---
Progress Note Date Seen: May 03, 2024 Resident Creating Document: JHAJJRAFASERGIOSARAH RESIDENT Medical Necessity Reason Pt with a Central, PICC or Fol: No Subjective Review of Systems Patient is a 38-year-old male with a past medical history of atrial fibrillation, CHF, hypertrophic cardiomyopathy, hypertension came to the ED with a chief complaint of abdominal pain which started 3 days before presentation. Patient reports diffuse abdominal pain associated with nausea vomiting and blood in stool. Patient has a obstructive sleep apnea and uses 2 L per minute oxygen at night Review of Systems Patient seen and examined at the bedside. Patient is alert and oriented to time, place and person. At present patient reports of mild diffuse abdominal pain. Does not report of any chest pain, dizziness, palpitations, shortness of breath. Patient's blood pressure is 103/55 mmHg, heart rate 78/Min regular, SpO2 95% on room air. Objective vital signs Vital Sign Date Time Temp Pulse Resp B/P (MAP) Pulse Ox O2 Delivery O2 Flow Rate FiO2 05/03/24 13:00 98.0 78 20 101/63 (76) 98 98.0 05/03/24 08:10 Room Air* 0 21 Total Intake and Output 05/02/24 05/02/24 05/03/24 15:00 23:00 07:00 Intake Total 60 ml 200 ml Balance 60 ml 200 ml medications Current Medications Medications Dose Ordered Sig/Kathleen Route Start Time Stop Time Status Last Admin Dose Admin Amiodarone HCl 200 mg BID PO 05/01/24 22:00 05/03/24 10:21 200 MG Acetaminophen/ Hydrocodone Bitart 1 tab Q4HP PRN PO 05/01/24 23:00 05/02/24 09:12 1 TAB Acetaminophen 650 mg Q6HP PRN PO 05/01/24 23:00 Docusate Sodium 100 mg BIDPRN PRN PO 05/01/24 23:00 Ergocalciferol 50,000 unit Q7D PO 05/01/24 23:00 05/02/24 06:43 50,000 UNIT Hydromorphone HCl 0.5 mg Q4HP PRN IV 05/01/24 23:00 Metoprolol Tartrate 25 mg BID PO 05/02/24 10:00 05/03/24 10:20 25 MG Morphine Sulfate 2 mg Q30M PRN IV 05/01/24 23:00 Nitroglycerin 0.4 mg Q5MINP PRN SL 05/01/24 23:00 Ondansetron HCl 4 mg Q4HP PRN IV 05/01/24 23:00 Sodium Chloride 10 ml Q8HR IV 05/02/24 06:00 05/03/24 13:33 10 ML Atorvastatin Calcium 20 mg HS PO 05/02/24 21:00 05/02/24 21:06 20 MG Pantoprazole Sodium 40 mg BID IV 05/02/24 22:00 05/03/24 10:20 40 MG Spironolactone 50 mg DAILY PO 05/03/24 10:00 05/03/24 10:20 50 MG Patient Own Medication 1 DAILY PO 05/03/24 10:00 05/03/24 10:45 1 Empaglifozin 10 mg DAILY PO 05/03/24 10:00 05/03/24 10:20 10 MG Examination Physical Exam Physical Examination Gen - no pallor, no icterus, no cyanosis, no clubbing, no LAD, no edema . Skin - Patients skin is warm and dry.. HEENT - normocephalic, atraumatic, moist mucous membranes. Neck - full ROM, no LAD, no JVD Pulmonary - B/L vesicular breath sounds. no crackles , no wheezing, no stridor. cardiovascular - patient is obese, faint S1,S2 heard. no murmurs heard. peripheral pulses normal radial 2+, pedal 2+. capillary refill normal <2 secs. GI - soft abdomen without tenderness to palpation. no hepatospleenomegaly. Bowel sounds+ Neurological - Patient is A/O X 3 . Bilateral upper extremity strength 5/5, bilateral lower extremity strength 5/5, no facial droop, normal speech, no tremor, no sensory deficiets. laboratory and microbiology Laboratory Tests 05/03/24 04:43 Test 05/03/24 04:43 Range/Units Serum Glucose 74 74-106 mg/dL Problem List/Assessment/Plan Problem List/Assessment/Plan Assessment and plan # acute on chronic heart failure with preserved ejection fraction - echo done in November 29, 2023 shows LVEF 60% with remarkably thickened interventricular septum - patient is on verquvo, empagliflozin, metoprolol tartrate, spironolactone - management as per hospitalist # ANGELO on CKD likely prerenal d/t VMN - serum creatinine 1.92--> 1.79-->1.8 - GFR 45--> 49-->48 - urine creatinine 111.74, urine sodium 82 - FENa 1% - continue spironolactone 50 mg once daily - continue bumetanide 1 mg once daily # hyperkalemia likely iatrogenic -elevated potassium at 5.4 on admission - patient was given 1 dose of Lokelma - patient was taking potassium at home - advised to stop taking potassium - potassium level now at 4.3 # NSTEMI likely type 2 - elevated troponins - echocardiogram did not show any evidence of ischemia no ST segment elevation - management as per hospitalist # paroxysmal atrial fibrillation - patient is on amiodarone 200 mg p.o. b.i.d. - managed as per hospitalist Patient's kidney function with serum creatinine and BUN levels are back to his baseline consistent with stage III CKD. No further inpatient nephrology workup is required. Patient was advised to discontinue taking potassium supplements and advised to continue bumetanide 1 mg once daily and spironolactone 50 mg once daily. Thank you for consulting nephrology with Goals of care discussed with the patient and his for over 20 minutes. Full code. Plan discussed with Patient seen and examined by myself today in follow-up with the medicine resident I agree with the assessment and plan as documented above Plan discussed with: Patient, Spouse JOSE BOATENG RESIDENT May 03, 2024 15:14 BRIANDA CARTER MD May 03, 2024 17:05
[2024-05-03 15:54] VITALS: BP 101/63; PULSE 78; TEMP 36.7
--- NOTE | 2024-05-03 18:10 | DVHPN2 ---
Progress Note Date Seen: May 03, 2024 Resident Creating Document: KAREN NICHOLS RESIDENT Medical Necessity Reason Pt with a Central, PICC or Fol: No Medical Necessity Reason rectal bleed. stable Subjective Review of Systems Constitutional: no fever, chill, weight loss HEENT: no eye pain, no hearing loss, no oral lesion, no scleral icterus Heart: no chest pain, no chest pressure GI: nausea and vomiting and also having red blood in stool; All improved Objective vital signs Vital Sign Date Time Temp Pulse Resp B/P (MAP) Pulse Ox O2 Delivery O2 Flow Rate FiO2 05/03/24 15:54 36.7 78 05/03/24 13:00 20 101/63 (76) 98 05/03/24 08:10 Room Air* 0 21 Total Intake and Output 05/02/24 05/02/24 05/03/24 15:00 23:00 07:00 Intake Total 60 ml 200 ml Balance 60 ml 200 ml Examination General: NAD, AAOX3 Chest: lung cruz clear to auscultation Heart: RRR, no murmur Abdomen: non-distended, no tenderness to palpation, +BS laboratory and microbiology Laboratory Tests 05/03/24 04:43 Test 05/03/24 04:43 Range/Units Serum Glucose 74 74-106 mg/dL Problem List/Assessment/Plan Problem List/Assessment/Plan Nausea and vomiting improved lower GI bleed, none noted today Hepatic steatosis Plan: Stable for discharge Recommended outpatient follow up for colonoscopy Goal of care discussed for more than 17 minute: Full code Case and plan discussed with Dr. Alberts Plan discussed with: Patient, Spouse KAREN NICHOLS RESIDENT May 03, 2024 18:10
[2024-05-03] MEDS ORDERED: PANT40T PO (19:27)
[2024-05-03] MEDS ORDERED: SPIR100T4 PO (19:28)
--- NOTE | 2024-05-03 21:52 | DVHPN2 ---
Progress Note - Dictate Date Seen: May 03, 2024 Medical Necessity Reason Pt with a Central, PICC or Fol: No Subjective Patient was seen and evaluated in follow up. Patient has no complaints at this time. Echocardiogram showed an EF of 65%. TECHNICAL HEALTHCARE CONSULTANT 1.80, AST 62, ALT 142. Covid is negative. Hepatitis B panel is pending. vital signs Vital Sign Date Time Temp Pulse Resp B/P (MAP) Pulse Ox O2 Delivery O2 Flow Rate FiO2 05/03/24 10:20 79 105/62 05/03/24 09:00 98.4 18 97 98.4 05/03/24 08:10 Room Air* 0 21 Total Intake and Output 05/02/24 05/02/24 05/03/24 15:00 23:00 07:00 Intake Total 60 ml 200 ml Balance 60 ml 200 ml medications Current Medications Medications Dose Ordered Sig/Kathleen Route Start Time Stop Time Status Last Admin Dose Admin Amiodarone HCl 200 mg BID PO 05/01/24 22:00 05/03/24 10:21 200 MG Acetaminophen/ Hydrocodone Bitart 1 tab Q4HP PRN PO 05/01/24 23:00 05/02/24 09:12 1 TAB Acetaminophen 650 mg Q6HP PRN PO 05/01/24 23:00 Docusate Sodium 100 mg BIDPRN PRN PO 05/01/24 23:00 Ergocalciferol 50,000 unit Q7D PO 05/01/24 23:00 05/02/24 06:43 50,000 UNIT Hydromorphone HCl 0.5 mg Q4HP PRN IV 05/01/24 23:00 Metoprolol Tartrate 25 mg BID PO 05/02/24 10:00 05/03/24 10:20 25 MG Morphine Sulfate 2 mg Q30M PRN IV 05/01/24 23:00 Nitroglycerin 0.4 mg Q5MINP PRN SL 05/01/24 23:00 Ondansetron HCl 4 mg Q4HP PRN IV 05/01/24 23:00 Sodium Chloride 10 ml Q8HR IV 05/02/24 06:00 05/03/24 06:40 10 ML Atorvastatin Calcium 20 mg HS PO 05/02/24 21:00 05/02/24 21:06 20 MG Pantoprazole Sodium 40 mg BID IV 05/02/24 22:00 05/03/24 10:20 40 MG Spironolactone 50 mg DAILY PO 05/03/24 10:00 05/03/24 10:20 50 MG Patient Own Medication 1 DAILY PO 05/03/24 10:00 05/03/24 10:45 1 Empaglifozin 10 mg DAILY PO 05/03/24 10:00 05/03/24 10:20 10 MG objective GENERAL: Awake, alert, oriented .Obese. LUNGS: Clear. CARDIOVASCULAR: Heart sounds are good. ABDOMEN: Soft. laboratory and microbiology Laboratory Tests 05/03/24 04:43 Test 05/03/24 04:43 Range/Units Serum Glucose 74 74-106 mg/dL Problem List Probable GI bleed. NSTEMI. ANGELO on CKD 3 a. Diastolic congestive heart failure. Atrial fibrillation. Hypertrophic cardiomyopathy status post AICD placement. Idiopathic subaortic stenosis. Hyperkalemia. Hepatic steatosis. Obstructive sleep apnea. Assessment/Plan Continued all current supportive medical care. Dilaudid and [place] for pain management. Amiodarone. Lipitor, Metoprolol. Jardiance. GI prophylactics. Additional plan as per the hospital course. Plan discussed with: Patient TONYA HOLMAN MD May 03, 2024 12:08
--- NOTE | 2024-05-04 04:31 | DVHINCON2 ---
DATE OF CONSULTATION: 05/02/2024 HISTORY OF PRESENT ILLNESS: I saw the patient with nurse, Yesika and the patient has been known to me, has been seen in the office almost every week or two and he came here because of abdominal pain. PAST MEDICAL HISTORY: He had a history of atrial fibrillation, history of idiopathic hypertrophic subaortic stenosis, gout, congestive heart failure, essential hypertension. ALLERGIES: None. MEDICATIONS: Metoprolol 25 mg b.i.d., vitamin D, amiodarone 200 mg b.i.d. Jardiance 10 mg a day. The patient is getting Lipitor and Plavix, Bumex. PHYSICAL EXAMINATION: LUNGS: Clear. HEART: Sounds regular. VASCULAR: Normal. CENTRAL NERVOUS SYSTEM: Negative. DIAGNOSES: The patient has lower GI bleeding, acute kidney injury, elevation of troponin, which is not specific etiology, hypertrophic subaortic stenosis. LAB TESTS: WBC 5.2. Troponin 257. PLAN: Overall, the patient from cardiac point of view is all clear. He can go home from cardiac point of view. He has an appointment. He has been following with my office every week or two. He is also following at the [facility] and he has an appointment on this coming Wednesday. Discussion done with the resident and Dr. Carlos Grant, PGY-1 and he calls me from his number [phone]. I also discussed the case with him. The patient was seen with our nurse, Yesika in the room 244, bed 7. Mariely Gay MD MP/ANDRA/LYNN TID: [id number] RECEIPT: [id number]
[2024-05-04 14:49] LABS: Hepatitis B Core Total AB Negative (Negative)
[2024-05-04 17:19] LABS: Hepatitis B Surface Antibody Negative (Negative); Hepatitis B Surface Antigen Negative (Negative); Hepatitis C Antibody Negative (Negative)
[2024-05-04 17:20] LABS: Hepatitis A Total Antibody Positive (Negative)
== END 2024-05-03 16:52 | disposition home or self-care (01) | DRG 253 ==
LOC: ER 11:04 → TELE 17:07 → ER 17:09 → TELE-E-ADS 21:12
PROVIDERS: ADMIT Internal Medicine; ATTEND Internal Medicine
DX: K92.2 Gastrointestinal hemorrhage, unspecified (principal); N17.0 Acute kidney failure with tubular necrosis; I21.A1 Myocardial infarction type 2; Q24.4 Congenital subaortic stenosis; T45.525A Adverse effect of antithrombotic drugs, initial encounter; I44.0 Atrioventricular block, first degree; I50.32 Chronic diastolic (congestive) heart failure; I13.0 Hypertensive heart and chronic kidney disease with heart failure and stage 1 through stage 4 chronic kidney disease, or unspecified chronic kidney disease; I42.2 Other hypertrophic cardiomyopathy; Z20.822 Contact with and (suspected) exposure to COVID-19; E87.5 Hyperkalemia; G47.33 Obstructive sleep apnea (adult) (pediatric); K76.0 Fatty (change of) liver, not elsewhere classified; N18.31 Chronic kidney disease, stage 3a; M10.9 Gout, unspecified; E55.9 Vitamin D deficiency, unspecified; I48.0 Paroxysmal atrial fibrillation; R73.03 Prediabetes; Z82.49 Family history of ischemic heart disease and other diseases of the circulatory system; Z83.3 Family history of diabetes mellitus; Z79.899 Other long term (current) drug therapy; Z95.810 Presence of automatic (implantable) cardiac defibrillator
CPT/HCPCS: 36415; 71045; 74176; 76705; 76775; 80048; 80053; 80307; 81001; 82270; 82306; 82570; 82607; 83036; 83605; 83880; 84300; 84443; 84484; 85025; 85045; 85610; 85730; 86704; 86706; 86708; 86803; 87340; 87426; 93005; 93306; 96372; G0378; J2470; Q9956

== ENCOUNTER 2024-07-31 10:18 | Inpatient (IN) | payer MEDICAID ==
[~2024-07-31] VITALS: Ht 170.2 cm; Wt 113.0 kg
[~2024-07-31 10:18] MED LIST changes: +FERR1TAB17 PO; +MAVA5CAP PO; +MYCO500T PO; +PANT40T PO; +SEMA2.4I SC
--- NOTE | 2024-07-31 10:39 | ECG ---
[facility] Test Date: 2024-07-31 Test Time: 10:29:54 Pat Name: CHRISTOPHER PARTIDA Department: ER Room: 0293T Gender: M Deputy Court: KAREN : 1985 Requested By: MP JESSICA Order Number: [id number] Reading MD: Rashad Gonzáles Measurements Intervals [place] Rate: 97 P: -18 CA: 231 QRS: -79 QRSD: 108 T: 77 QT: 355 QTc: 451 Interpretive Statements Sinus rhythm Atrial premature complex Prolonged CA interval Left atrial enlargement Anterolateral infarct, acute (LAD) Baseline wander in lead(s) V1,V2,V3,V4 Electronically Signed On 08-03-2024 16:31:19 PST by Rashad Gonzáles Please click the below link to view image of tracing.
[2024-07-31] MEDS: ASPirin 81 mg TAB PO ONE (10:50)
--- NOTE | 2024-07-31 11:00 | ED.PDOC ---
History of Present Illness HPI Comments 38-year-old male who comes in with chief complaint of shortness a breath times 1-1/2 weeks. The patient was also complaining of some chest pain that is somewhat substernal. The pain is nonradiating at this time. He describes the pain as pressure-like in nature. The patient does have a history of an AICD wi th possible CHF. He rates the pain as a 5/10 at this time. He was able to ambulate into the emergency department's without any difficulty. Chief Complaint: Flu like Time Seen by MD: 10:21 Primary Care Provider: Victor Hugo Reviewed Notes: Nurses Notes, Medications, Allergies Allergies: Coded Allergies: NO KNOWN ALLERGIES (Unverified , 03/15/19) Home Meds Active Scripts Spironolactone (Spironolactone) 100 Mg Tab, 1 TAB PO DAILY, #30 TAB 11 Refills Prov:NESHA RICHTER RESIDENT 05/03/24 Pantoprazole Sodium Sesquihydr (Pantoprazole Sodium) 40 Mg Tab, 40 MG PO DAILY for 30 Days, #30 TAB Prov:NESHA RICHTER RESIDENT 05/03/24 Metoprolol Tartrate (Lopressor) 25 Mg Tb, 25 MG PO BID for 30 Days, #60 TAB Prov:KENNEDY CARVER 12/01/23 Ergocalciferol (VITAMIN D 59374 UNIT) 50,000 [place], [address] UNIT PO Q7D for 30 Days, #10 CAP Prov:KENNEDY CARVER 12/01/23 Amiodarone HCl (Amiodarone HCl) 200 Mg Tab, 200 MG PO BID for 30 Days, #60 TAB Prov:KENNEDY CARVER 12/01/23 Empagliflozin (Jardiance) 10 Mg Tab, 10 MG PO QAM for 30 Days, #30 TAB 3 Refills Prov:ANSLYE ORTEGA MD 07/09/22 Atorvastatin Calcium (ATORVASTATIN CALCIUM) 20 Mg Tab, 1 TAB PO DAILY, #30 TAB 5 Refills Prov:JESSICA GRESHAM MD 05/16/22 Clopidogrel Bisulfate (Plavix) 75 Mg Tab, 1 TAB PO DAILY, #30 TAB 1 Refill Prov:JESSICA GRESHAM MD 05/16/22 Reported Medications Semaglutide (Wegovy) 2.4 Mg/0.75 Ml Inj, 2.4 MG SC ONCE, INJ 05/01/24 Ferric Citrate (Auryxia) 210 Mg Tab, 210 MG PO TID, TAB 05/01/24 Mycophenolate Mofetil (Cellcept) 500 Mg Tab, 2 TAB PO BID, #360 TAB 3 Refills 05/01/24 Mavacamten (Camzyos) 5 Mg Cap, 5 MG PO DAILY, CAP 05/01/24 Bumetanide (Bumex) 2 Mg Tab, 1 MG PO DAILY 11/29/23 Vericiguat (Verquvo) 2.5 Mg Tab, 2.5 MG PO DAILY, TAB 11/29/23 Spironolactone (Spironolactone) 100 Mg Tab, 100 MG PO BID, TAB 11/29/23 Allopurinol (Allopurinol) 100 Mg Tab, 200 MG PO DAILY, TAB 10/25/20 Information Source: Patient Mode of Arrival: Ambulatory Severity: Moderate Timing: Days Duration: Since onset Prehospital treatment: None Location: Substernal chest pain is nonradiating Associated signs and symptoms Associated shortness a breath Past Medical History PAST MEDICAL HISTORY: AFIB, CHF, COPD, Gout, HTN, NV Surgical History: Pacemaker Surgical History (Other): AICD Family History Family History: Family hx of heart neda, Family hx of HTN Social History Smoker: Non-Smoker Alcohol: Denies ETOH Use Drugs: Denies Drug Use Lives In: Home Constitutional: denies: chills, diaphoresis, fatigue, fever, malaise, sweats, weakness, others EENTM: denies: blurred vision, double vision, ear bleeding, ear discharge, ear drainage, ear pain, ear ringing, eye pain, eye redness, hearing loss, mouth pain, mouth swelling, nasal discharge, nose bleeding, nose congestion, nose pain, photophobia, tearing, throat pain, throat swelling, voice changes, others Respiratory: reports: shortness of breath; denies: cough, hemoptysis, orthopnea, SOB at rest, SOB with excertion, stridor, wheezing, others Cardiovascular: reports: chest pain; denies: dizzy spells, diaphoresis, Dyspnea on exertion, edema, irregular heart beat, left arm pain, lightheadedness, palpitations, PND, syncope, others Gastrointestinal: denies: abdomen distended, abdominal pain, blood streaked bowels, constipated, diarrhea, dysphagia, difficulty swallowing, hematemesis, melena, nausea, poor appetite, poor fluid intake, rectal bleeding, rectal pain, vomiting, others Genitourinary: denies: burning, dysuria, flank pain, frequency, hematuria, incontinence, penile discharge, penile sore, pain, testicle pain, testicle swelling, urgency, others Neurological: denies: dizziness, fainting, headache, left sided numbness, left sided weakness, numbness, paresthesia, pre-existing deficit, right sided numbness, right sided weakness, seizure, speech problems, tingling, tremors, weakness, others Musculoskeletal: denies: back pain, gout, joint pain, joint swelling, muscle pain, muscle stiffness, neck pain, others Integumetry: denies: bruises, change in color, change in hair/nails, dryness, laceration, lesions, lumps, rash, wounds, others Allergic/Immunocompromised: denies: Difficulty Healing, Frequent Infections, Hives, Itching, others Hematologic/Lymphatic: denies: anemia, blood clots, easy bleeding, easy bruising, swollen glands, others Endocrine: denies: excessive hunger, excessive sweating, excessive thirst, excessive urination, flushing, intolerance to cold, intolerance to heat, unexplained weight gain, unexplained weight loss, others Psychiatric: denies: anxiety, bipolar disorder, depression, hopeless, panic disorder, schizophrenia, sleepless, suicidal, others Physical Exam General Appearance: Moderate Distress HEENT: Normal ENT Inspection, Pharynx Normal, TMs Normal Neck: Full Range of Motion, Non-Tender, Normal, Normal Inspection Respiratory: Chest Non-Tender, Lungs Clear, No Accessory Muscle Use, No Respiratory Distress, Normal Breath Sounds Cardiovascular: No Edema, No JVD, No Murmur, No Gallop, Normal Peripheral Pulses, Regular Rate/Rhythm, Other (AICD in place) Breast Exam: Deferred Gastrointestinal: No Organomegaly, Non Tender, No Pulsatile Mass, Normal Bowel Sounds, Soft Genitalia: Deferred Pelvic: Deferred Rectal: Deferred Extremities: No calf tenderness, Normal capillary refill, Normal inspection, Normal range of motion, Non-tender, No pedal edema Musculoskeletal : Apperance: Normal Neurologic: Alert, policy analyst II-XII nml as Tested, No Motor Deficits, Normal Affect, Normal Mood, No Sensory Deficits Cerebellar Function: Normal Reflexes: Normal Skin: Dry, Normal Color, Warm Lymphatic: No Adenopathy Was a procedure done? Was a procedure done?: No EKG EKG : Pulse Rate (adult): 97 [place]: Normal Hypertrophy: LAE ST: Nonsp Differential Dx Considerations may include: ACS, NV X-Ray, Labs, Meds, VS Vital Signs Date Time Temp Pulse Resp B/P (MAP) Pulse Ox O2 Delivery O2 Flow Rate FiO2 07/31/24 12:00 90 14 119/72 (88) 98 07/31/24 11:00 97 07/31/24 10:53 Room Air* 0 21 07/31/24 10:48 98.0 93 15 123/50 (74) 95 98.0 07/31/24 10:31 18 97 Room Air* 0 21 07/31/24 10:29 97 07/31/24 10:28 97.9 97 18 114/72 (86) 100 Lab Test 07/31/24 11:47 07/31/24 10:52 Range/Units Troponin I High Sensitivity Pending 184 *H </=54 ng/L White Blood Count 6.8 4.4-10.8 10^3/uL Red Blood Count 6.91 H 4.5-5.90 10^6/uL Hemoglobin 21.3 *H 13.5-17.5 g/dL Hematocrit 62.5 H 41.0-53.0 % Mean Corpuscular Volume 90.5 80.0-100.0 fL Mean Corpuscular Hemoglobin 30.8 28.0-32.0 pg Mean Corpuscular Hemoglobin Concent 34.1 32.0-36.0 g/dL Red Cell Distribution Width 13.8 11.8-14.3 % Platelet Count 188 140-450 10^3/uL Mean Platelet Volume 9.8 6.9-10.8 fL Neutrophils (%) (Auto) 65.7 37.0-80.0 % Lymphocytes (%) (Auto) 20.9 10.0-50.0 % Monocytes (%) (Auto) 11.7 0.0-12.0 % Eosinophils (%) (Auto) 1.3 0.0-7.0 % Basophils (%) (Auto) 0.4 0.0-2.0 % Neutrophils # (Auto) 4.5 1.6-8.6 10 ^3/uL Lymphocytes # (Auto) 1.4 0.4-5.4 10 ^3/uL Monocytes # (Auto) 0.8 0-1.3 10 ^3/uL Eosinophils # (Auto) 0.1 0-0.8 10 ^3/uL Basophils # (Auto) 0 0-0.2 10 ^3/uL Nucleated Red Blood Cells 0.6 % D-Dimer, Quantitative Pending Sodium Level 126 L 136-145 mmol/L Potassium Level 2.1 *L 3.5-5.1 mmol/L Chloride Level 82 L 98-107 mmol/L Carbon Dioxide Level 35 H 20-31 mmol/L Anion Gap 9 5-15 Blood Urea Nitrogen 16 9-23 mg/dL Creatinine 1.60 H 0.700-1.30 mg/dL Glomerular Filtration Rate Calc 56 >90 mL/min BUN/Creatinine Ratio 10.0 10.0-20.0 Serum Glucose 193 H 74-106 mg/dL Calcium Level 10.5 H 8.7-10.4 mg/dL B-Type Natriuretic Peptide 87.16 0-100 pg/mL Current Medications Medications (Trade) Dose Ordered Sig/Kathleen Route Start Time Stop Time Status Last Admin Aspirin 162 mg ONCE ONCE PO 07/31/24 10:45 07/31/24 10:46 DC 07/31/24 10:50 IV Hep-Lock will be established The patient was given aspirin here in the emergency department's We did send the EKG to Dr. Hillman who is the steam and power supervisor on-call This is not a STEMI at this time. The patient has a troponin level of 184 The CBC shows a hemoglobin is 21.3 and hematocrit of 62.5 The chemistry panel shows hyponatremia at 126 The potassium is 2.1 in the chloride is decreased at 82 The creatinine is 1.60 At this time, the patient was being admitted to the hospitalist We will continue to follow serial EKGs The patient has been normotensive with a pulse ox of 98% Images Reviewed?: Images reviewed and evaluated by me Time of 1ST Reevaluation: 11:00 Reevaluation 1ST: Improved Patient Education/Counseling: Diagnosis, Treatment, Prognosis Family Education/Counseling: No Family Present Departure 1 Departure Time of Disposition: 12:45 Impression: Primary Impression: Acute myocardial ischemia Additional Impressions: Hypokalemia Generalized weakness Hyponatremia Hypochloremia Electrolyte imbalance Disposition: 09 ADMITTED INPATIENT Admit to: Tele Condition: Fair Critical Care Note Critical Care Time?: Yes (55 min-critical care time only) Stability Stability form required: Yes Unstable for transfer: Telemetry monitoring (Telemetry monitoring required), ED Physician Assesment (Clinical assesment) Heart Score Heart Score: Heart Score Response (Comments) Value History Highly Suspicious 2 EKG Repolarization Disturb 1 Age <45 0 Risk Factors >3 or Hx ASHD 2 Troponin >3 x's Normal limit 2 Total 7 MP JESSICA MD Jul 31, 2024 11:00
--- NOTE | 2024-07-31 11:09 | DVH ---
XY CHEST TWO VIEWS ROUTINE, HISTORY: sob/cp COMPARISON: CHEST TWO VIEWS ROUTINE on DOS: 07/05/22, CXR2 on DOS: 07/05/22, CXR2 on DOS: 10/01/21 CHEST TWO VIEWS ROUTINE on DOS: 07/05/22, CXR2 on DOS: 07/05/22, CXR2 on DOS: 10/01/21 TECHNICAL DATA: 2 view of the chest was obtained. FINDINGS: Lines and tubes: A cardiac pacer is seen. Cardiomediastinal silhouette: normal Pulmonary vasculature: normal Lung expansion: normal Lung airspace: normal Lung interstitium: normal Pleura: normal Pneumothorax: no Bones: Unremarkable Other: no IMPRESSION: No acute intrathoracic abnormality.
[2024-07-31 11:33] LABS: Basophils # (auto) 0 10 ^3/uL (0-0.2); Basophils % (auto) 0.4 % (0.0-2.0); Eosinophils # (auto) 0.1 10 ^3/uL (0-0.8); Lymphocytes # (auto) 1.4 10 ^3/uL (0.4-5.4); Lymphocytes % (auto) 20.9 % (10.0-50.0); Mean Corpuscular Hemoglobin 30.8 pg (28.0-32.0); Monocytes # (auto) 0.8 10 ^3/uL (0-1.3); Neutrophils # (auto) 4.5 10 ^3/uL (1.6-8.6); Nucleated Red Blood Cells % 0.6 %
[2024-07-31 11:35] LABS: Eosinophils % (auto) 1.3 % (0.0-7.0); Mean Corpuscular Hgb Conc. 34.1 g/dL (32.0-36.0); Mean Corpuscular Volume 90.5 fL (80.0-100.0); Monocytes % (auto) 11.7 % (0.0-12.0); Neutrophils % (auto) 65.7 % (37.0-80.0); Platelet Count (auto) 188 10^3/uL (140-450); Red Blood Cells 6.91 10^6/uL (4.5-5.90); Red Cell Distribution Width 13.8 % (11.8-14.3); White Blood Cell 6.8 10^3/uL (4.4-10.8)
[2024-07-31 11:42] LABS: Anion Gap 9 (5-15)
[2024-07-31 11:47] LABS: Blood Urea Nitrogen 16 mg/dL (9-23)
[2024-07-31 11:48] LABS: Hematocrit 62.5 % (41.0-53.0); Hemoglobin 21.3 g/dL (13.5-17.5)
[2024-07-31 12:10] LABS: Calcium 10.5 mg/dL (8.7-10.4); Carbon Dioxide 35 mmol/L (20-31); Chloride 82 mmol/L (98-107); Glucose 193 mg/dL (74-106); Sodium 126 mmol/L (136-145)
[2024-07-31 12:17] LABS: Potassium 2.1 mmol/L (3.5-5.1)
[2024-07-31] MEDS: POTASSIUM CHL 20 Meq TABLET PO ONE ×2 (12:45→21:24)
--- NOTE | 2024-07-31 13:09 | DVHINCON2 ---
Date of service: Jul 31, 2024 History of Present Illness 38 yo M with hx of HOCM, hx of PPM, admitted for flu like symptoms and nstemi elevated troponin. pt has felt poorly for few days now with sob and fatigue. he had LHC with md 2021 which was - . ecg shows SR, LVH pattern Past Medical History reviewed Family History: Cardiovascular disease Diabetes mellitus G8 FATHER FH: CHF (congestive heart failure) G8 FATHER Allergies: Coded Allergies: NO KNOWN ALLERGIES (Unverified , 03/15/19) Home Meds Active Scripts Spironolactone (Spironolactone) 100 Mg Tab, 1 TAB PO DAILY, #30 TAB 11 Refills Prov:NESHA RICHTER [facility] 05/03/24 Pantoprazole Sodium Sesquihydr (Pantoprazole Sodium) 40 Mg Tab, 40 MG PO DAILY for 30 Days, #30 TAB Prov:NESHA RICHTER [facility] 05/03/24 Metoprolol Tartrate (Lopressor) 25 Mg Tb, 25 MG PO BID for 30 Days, #60 TAB Prov:KENNEDY CARVER [facility] 12/01/23 Ergocalciferol (VITAMIN D 07326 UNIT) 50,000 [place], [address] UNIT PO Q7D for 30 Days, #10 CAP Prov:KENNEDY CARVER [facility] 12/01/23 Amiodarone HCl (Amiodarone HCl) 200 Mg Tab, 200 MG PO BID for 30 Days, #60 TAB Prov:KENNEDY CARVER [facility] 12/01/23 Empagliflozin (Jardiance) 10 Mg Tab, 10 MG PO QAM for 30 Days, #30 TAB 3 Refills Prov:ANSLEY ORTEGA MD 07/09/22 Atorvastatin Calcium (ATORVASTATIN CALCIUM) 20 Mg Tab, 1 TAB PO DAILY, #30 TAB 5 Refills Prov:JESSICA GRESHAM MD 05/16/22 Clopidogrel Bisulfate (Plavix) 75 Mg Tab, 1 TAB PO DAILY, #30 TAB 1 Refill Prov:JESSICA GRESHAM MD 05/16/22 Reported Medications Semaglutide (Wegovy) 2.4 Mg/0.75 Ml Inj, 2.4 MG SC ONCE, INJ 05/01/24 Ferric Citrate (Auryxia) 210 Mg Tab, 210 MG PO TID, TAB 05/01/24 Mycophenolate Mofetil (Cellcept) 500 Mg Tab, 2 TAB PO BID, #360 TAB 3 Refills 05/01/24 Mavacamten (Camzyos) 5 Mg Cap, 5 MG PO DAILY, CAP 05/01/24 Bumetanide (Bumex) 2 Mg Tab, 1 MG PO DAILY 11/29/23 Vericiguat (Verquvo) 2.5 Mg Tab, 2.5 MG PO DAILY, TAB 11/29/23 Spironolactone (Spironolactone) 100 Mg Tab, 100 MG PO BID, TAB 11/29/23 Allopurinol (Allopurinol) 100 Mg Tab, 200 MG PO DAILY, TAB 10/25/20 Review of Systems 10 pt ros otherwise negative Vital Signs Vital Signs Date Time Temp Pulse Resp B/P (MAP) Pulse Ox O2 Delivery O2 Flow Rate FiO2 07/31/24 12:45 91 07/31/24 12:00 14 119/72 (88) 98 07/31/24 10:53 Room Air* 0 21 07/31/24 10:48 98.0 98.0 Physical Exam nad s1 s2 rrr ctab soft nt/nd no edema Labs/Diagnostic Data Labs Test 07/31/24 11:47 07/31/24 10:52 Range/Units White Blood Count 6.8 4.4-10.8 10^3/uL Red Blood Count 6.91 H 4.5-5.90 10^6/uL Hemoglobin 21.3 *H 13.5-17.5 g/dL Hematocrit 62.5 H 41.0-53.0 % Mean Corpuscular Volume 90.5 80.0-100.0 fL Mean Corpuscular Hemoglobin 30.8 28.0-32.0 pg Mean Corpuscular Hemoglobin Concent 34.1 32.0-36.0 g/dL Red Cell Distribution Width 13.8 11.8-14.3 % Platelet Count 188 140-450 10^3/uL Mean Platelet Volume 9.8 6.9-10.8 fL Neutrophils (%) (Auto) 65.7 37.0-80.0 % Lymphocytes (%) (Auto) 20.9 10.0-50.0 % Monocytes (%) (Auto) 11.7 0.0-12.0 % Eosinophils (%) (Auto) 1.3 0.0-7.0 % Basophils (%) (Auto) 0.4 0.0-2.0 % Neutrophils # (Auto) 4.5 1.6-8.6 10 ^3/uL Lymphocytes # (Auto) 1.4 0.4-5.4 10 ^3/uL Monocytes # (Auto) 0.8 0-1.3 10 ^3/uL Eosinophils # (Auto) 0.1 0-0.8 10 ^3/uL Basophils # (Auto) 0 0-0.2 10 ^3/uL Nucleated Red Blood Cells 0.6 % Sodium Level 126 L 136-145 mmol/L Potassium Level 2.1 *L 3.5-5.1 mmol/L Chloride Level 82 L 98-107 mmol/L Carbon Dioxide Level 35 H 20-31 mmol/L Anion Gap 9 5-15 Blood Urea Nitrogen 16 9-23 mg/dL Creatinine 1.60 H 0.700-1.30 mg/dL Glomerular Filtration Rate Calc 56 >90 mL/min BUN/Creatinine Ratio 10.0 10.0-20.0 Serum Glucose 193 H 74-106 mg/dL Calcium Level 10.5 H 8.7-10.4 mg/dL B-Type Natriuretic Peptide 87.16 0-100 pg/mL Assessment HOCM nstemi r/o flu obesity HTN HL Plan/Recommendation follow up viral testing repeat echo pt had PPM checked with cards recently had negative LHC 2 years ago , no indication for ischemic eval at this time this is a stat consult, seen elsa 40 mins critical care time spent Plan discussed with: Patient CARIN REILLY MD Jul 31, 2024 13:09
[2024-07-31] MEDS: POTASSIUM CHL 20MEQ/100ML 100 ML IV ONE (13:15)
[2024-07-31] MEDS ORDERED: ALBUTEROL SULF 2.5 MG/0.5ML(0.5%) NEB SOLN NEB PRN (13:45)
[2024-07-31] MEDS ORDERED: HYDROcodone-ACET 5/325MG TAB PO PRN (13:45)
[2024-07-31] MEDS ORDERED: DOCUSATE SOD 100 MG CAP PO PRN (13:45)
[2024-07-31] MEDS ORDERED: ACETAMINOPHEN 325 MG TAB PO PRN (13:45)
[2024-07-31] MEDS ORDERED: ONDANSETRON HCL 4 MG/2 ML VIAL IV PRN (13:45)
[2024-07-31] MEDS ORDERED: IPRATROPIUM BROM 0.5 MG/2.5ML INH SOL NEB PRN (13:45)
[2024-07-31] MEDS: SODIUM CHLORIDE 0.9% 1,000 ML IV SCH (14:14)
[2024-07-31] MEDS: DexAMETHasone SOD PHOS 10MG/1ML VIAL INJ IV ONE (15:24)
--- NOTE | 2024-07-31 16:22 | DVHHP2 ---
History of Present Illness Reason for Visit: COPD with acute exacerbation History of Present Illness The patient is a 38-year-old male with multiple past medical history including AFib, COPD, CHF, and NC who presented to [facility] ED with complaint of shortness of breaths. Patient reports symptoms progressively get worse with substernal chest pain, pressure-like in nature, rating pain 5/10 numeric scale. Patient was seen and evaluated in the ED, laboratory data shows WBC 6.8, hemoglobin 21.3, hematocrit 62.5, platelets 183, sodium 126, potassium 2.1, BUN 16, creatinine 1.60, GFR 56, glucose 193, calcium 10.5, troponin 184, BNP 87.16. Patient reports he has been undergoing phlebotomy lab draw outpatient for his elevated hemoglobin treatment. On my assessment, patient denied chest pain at this moment, no dizziness, no headache, no diaphoresis, currently on oxygen, no nausea, no vomiting, no fever, no chills. Patient was admitted for further evaluation and medical management. Past Medical History AFIB, CHF, COPD, Gout, HTN, NC Past Surgical History Pacemaker, AICD Family History Reviewed, noncontributory to the management of this case. Past Social History The patient lives at home, denies smoking, alcohol or illicit drugs abuse. Review of Systems Constitutional: No: Fever, Chills, Sweats, Weakness, Malaise, Other Eyes: No: Pain, Vision change, Conjunctivae inflammation, Eyelid inflammation, Other, Redness ENT: No: Ear pain, Ear discharge, Nose pain, Nose discharge, Nose congestion, Mouth pain, Mouth swelling, Throat pain, Throat swelling, Other Respiratory: Shortness of breath; No: Cough, Dry, SOB with excertion, Wheezing, Hemoptysis, Pleuritic Pain, Sputum, Wheezing, Other Cardiovascular: Chest Pain; No: Palpitations, Orthopnea, Paroxysmal Noc. Dyspnea, Edema, Lt Headedness, Other Gastrointestinal: No: Nausea, Vomiting, Abdominal Pain, Diarrhea, Constipation, Melena, Hematochezia, Other Genitourinary: No Dysuria, No Frequency, No Incontinence, No Hematuria, No Retention, No Other Musculoskeletal: No: other, neck pain, shoulder pain, arm pain, back pain, hand pain, leg pain, foot pain Skin: No: Rash, Lesions, Jaundice, Bruising, Other Neurological: No: Weakness, Numbness, Incoordination, Change in speech, Confusion, Seizures, Other Allergies: Coded Allergies: NO KNOWN ALLERGIES (Unverified , 03/15/19) Medications Current Medications Medications Dose Ordered Sig/Kathleen Route Start Time Stop Time Status Last Admin Dose Admin Aspirin 81 mg DAILY PO 08/01/24 10:00 Clopidogrel Bisulfate 75 mg DAILY PO 08/01/24 10:00 Albuterol 2.5 mg Q4HPRN PRN NEB 07/31/24 13:45 Ipratropium [place] 0.5 mg Q4HPRN PRN NEB 07/31/24 13:45 Dexamethasone Sodium Phosphate 6 mg DAILY IV 08/01/24 10:00 Famotidine 20 mg DAILY IV 08/01/24 10:00 Sodium Chloride 1,000 ml @ 60 mls/hr [id number] IV 07/31/24 13:45 07/31/24 14:14 60 MLS/HR Acetaminophen/ Hydrocodone Bitart 1 tab Q4HP PRN PO 07/31/24 13:45 Ondansetron HCl 4 mg Q4HP PRN IV 07/31/24 13:45 Docusate Sodium 100 mg BIDPRN PRN PO 07/31/24 13:45 Acetaminophen 650 mg Q6HP PRN PO 07/31/24 13:45 Metoprolol Tartrate 25 mg BID PO 07/31/24 22:00 Atorvastatin Calcium 20 mg HS PO 07/31/24 22:00 Exam Vital Signs Vital Signs Date Time Temp Pulse Resp B/P (MAP) Pulse Ox O2 Delivery O2 Flow Rate FiO2 07/31/24 16:00 98 07/31/24 13:05 Room Air* 0 21 07/31/24 12:00 14 119/72 (88) 98 07/31/24 10:48 98.0 98.0 General Appearance: Alert, Oriented X3, Cooperative, No acute distress HEENT: Atraumatic, PERRLA, EOMI, Mucous membr. moist/pink Respiratory: Clear to auscultation, Normal air movement Cardiovascular: Regular rate, Normal S1, Normal S2, No murmurs Abdominal: Normal bowel sounds, Soft, No tenderness, No hepatospenomegaly, No masses Extremities: No clubbing, No cyanosis, No edema, Normal pulses, No tenderness/swelling Skin: No rashes, No breakdown, No significant lesion Neuro: Normal gait, Normal speech, Normal tone, Sensation intact, Cranial nerves 3-12 NL, Reflexes 2+, Other (Generalized weakness) Psych/Mental Status: Mental status NL, Mood NL Labs/Xrays Labs Test 07/31/24 13:56 07/31/24 10:52 Range/Units Troponin I High Sensitivity 185 *H </=54 ng/L White Blood Count 6.8 4.4-10.8 10^3/uL Red Blood Count 6.91 H 4.5-5.90 10^6/uL Hemoglobin 21.3 *H 13.5-17.5 g/dL Hematocrit 62.5 H 41.0-53.0 % Mean Corpuscular Volume 90.5 80.0-100.0 fL Mean Corpuscular Hemoglobin 30.8 28.0-32.0 pg Mean Corpuscular Hemoglobin Concent 34.1 32.0-36.0 g/dL Red Cell Distribution Width 13.8 11.8-14.3 % Platelet Count 188 140-450 10^3/uL Mean Platelet Volume 9.8 6.9-10.8 fL Neutrophils (%) (Auto) 65.7 37.0-80.0 % Lymphocytes (%) (Auto) 20.9 10.0-50.0 % Monocytes (%) (Auto) 11.7 0.0-12.0 % Eosinophils (%) (Auto) 1.3 0.0-7.0 % Basophils (%) (Auto) 0.4 0.0-2.0 % Neutrophils # (Auto) 4.5 1.6-8.6 10 ^3/uL Lymphocytes # (Auto) 1.4 0.4-5.4 10 ^3/uL Monocytes # (Auto) 0.8 0-1.3 10 ^3/uL Eosinophils # (Auto) 0.1 0-0.8 10 ^3/uL Basophils # (Auto) 0 0-0.2 10 ^3/uL Nucleated Red Blood Cells 0.6 % D-Dimer, Quantitative 0.27 0.0-0.49 mg/L FEU Sodium Level 126 L 136-145 mmol/L Potassium Level 2.1 *L 3.5-5.1 mmol/L Chloride Level 82 L 98-107 mmol/L Carbon Dioxide Level 35 H 20-31 mmol/L Anion Gap 9 5-15 Blood Urea Nitrogen 16 9-23 mg/dL Creatinine 1.60 H 0.700-1.30 mg/dL Glomerular Filtration Rate Calc 56 >90 mL/min BUN/Creatinine Ratio 10.0 10.0-20.0 Serum Glucose 193 H 74-106 mg/dL Hemoglobin A1c 5.7 <5.7 % A1C Calcium Level 10.5 H 8.7-10.4 mg/dL B-Type Natriuretic Peptide 87.16 0-100 pg/mL PATIENT: CHRISTOPHER PARTIDA ACCT: [id number] UNIT: [id number] : 1985 LOC: ER ROOM / BED: / AGE / SEX: 38 / M ADM STATUS: REG ER SERVICE 1042 ORDERING PHYSICIAN: MP JESSICA MD PROCEDURE(s): CXR2 - CHEST TWO VIEWS ROUTINE REASON: sob/cp ORDER NUMBER(s): [id number], ACCESSION NUMBER(s): [id number] CHEST TWO VIEWS ROUTINE, HISTORY: sob/cp COMPARISON: CHEST TWO VIEWS ROUTINE on DOS: 07/05/22, CXR2 on DOS: 07/05/22, CXR2 on DOS: 10/01/21 CHEST TWO VIEWS ROUTINE on DOS: 07/05/22, CXR2 on DOS: 07/05/22, CXR2 on DOS: 10/01/21 TECHNICAL DATA: 2 view of the chest was obtained. FINDINGS: Lines and tubes: A cardiac pacer is seen. Cardiomediastinal silhouette: normal Pulmonary vasculature: normal Lung expansion: normal Lung airspace: normal Lung interstitium: normal Pleura: normal Pneumothorax: no Bones: Unremarkable Other: no IMPRESSION: No acute intrathoracic abnormality. Assessment/Plan Assessment/Plan Acute myocardial ischemia Hyperglycemia Elevated troponin Electrolyte imbalance Polycythemia vera Generalized weakness Plan 1. Admit to telemetry unit 2. Breathing treatment 3. Pain control management 4. Management of fluids and electrolytes 5. Consultation for Cardiology 6. Diagnostic tests chest x-ray 7. DVT prophylaxis-on aspirin 8. Repeat labs CBC, CMP in a.m. 9. Continue with current medical management 10. Treatment plan discussed with patient and RN. Patient verbalized understanding. Plan discussed with: Patient, Other (RN) My Orders Orders - CECE MONAE DNP Procedure Category Date Status Time Aspirin Tablet PHA 08/01/24 In Process 10:00 Clopidogrel Bisulfate PHA 08/01/24 In Process (Plavix) 10:00 Albuterol Medneb PHA 07/31/24 In Process (Ventolin Medneb) 13:45 Ipratropium Medneb PHA 07/31/24 In Process (Atrovent Medneb) 13:45 Dexamethasone PHA 08/01/24 In Process Injection (Decadron 10:00 Famotidine Injection PHA 08/01/24 In Process (Pepcid Injection) 10:00 Allergies BR[place] 07/31/24 In Process 13:40 Code Status CODE 07/31/24 Transmitted 13:40 Sodium Chloride 0.9% PHA 07/31/24 In Process 13:45 Oxygen Per Hour RT 07/31/24 Transmitted 13:40 Hydrocodone-Acet PHA 07/31/24 In Process 5/325mg Tab ([place] 13:45 Ondansetron Hcl PHA 07/31/24 In Process (Zofran) 13:45 Docusate Sodium PHA 07/31/24 In Process Capsule (Colace 13:45 Complete Blood Count LAB 08/01/24 Verified 04:00 Comprehensive LAB 08/01/24 Verified Metabolic Panel 04:00 Cardiac DIET 07/31/24 Transmitted Diet-2gna,Lofat,Lochol Dinner Condition: Serious BR[place] 07/31/24 In Process 13:40 Acetaminophen Tablet PHA 07/31/24 In Process (Tylenol Tablet) 13:45 Bedrest With Bathroom [place] 07/31/24 In Process Privileg 13:40 Sequential [place] 07/31/24 In Process Compression Device Metoprolol Tartrate PHA 07/31/24 In Process Tablet (Lopressor Ta 22:00 Atorvastatin (Lipitor) PHA 07/31/24 In Process 22:00 Problem List: (1) Acute myocardial ischemia (2) Polycythemia vera (3) Electrolyte imbalance (4) Hyperglycemia (5) Elevated troponin (6) Generalized weakness Date of Service: Jul 31, 2024 Billing Provider: CECE MONAE DNP Common Visit Codes: 90328-[id number] INP/OBS CARE (HIGH) CECE MONAE DNP Jul 31, 2024 16:22
[2024-07-31] MEDS ORDERED: NITROGLYCERIN 0.4 MG SL TAB SL PRN (16:30)
[2024-07-31] MEDS ORDERED: MORPHINE SULFATE INJ 2 MG/ml SYRG IV PRN (16:30)
[2024-07-31 19:00] VITALS: O2SAT 96
[2024-07-31 19:30] VITALS: PULSE 91; RESP 18; O2SAT 97
[2024-07-31 20:34] LABS: Albumin 4.7 g/dL (3.2-4.8); Anion Gap 11 (5-15); BUN/Creatinine Ratio 11.4 (10.0-20.0); Blood Urea Nitrogen 18 mg/dL (9-23); Total Protein 7.9 g/dL (5.7-8.2)
[2024-07-31 20:35] LABS: Alanine Aminotransferase 426 U/L (7-40); Alkaline Phosphatase 161 U/L (46-116); Aspartate Aminotransferase 209 U/L (13-40); Bilirubin, Total 1.9 mg/dL (0.2-1.0); Calcium 10.7 mg/dL (8.7-10.4); Carbon Dioxide 34 mmol/L (20-31); Chloride 81 mmol/L (98-107); Glucose 206 mg/dL (74-106); Potassium 2.6 mmol/L (3.5-5.1); Sodium 126 mmol/L (136-145)
[2024-07-31] MEDS: TEMAZEPAM 15 MG CAP PO ONE (21:24)
[2024-07-31] MEDS: METOPROLOL TARTRATE 25 MG TAB PO SCH (22:00)
[2024-07-31] MEDS: ATORVASTATIN 20 MG TAB PO SCH (22:36)
[2024-07-31 23:39] VITALS: BP 101/50; PULSE 94; RESP 18; TEMP 98; O2SAT 97
[2024-08-01] VITALS (7 sets, daily range): BP systolic 118–139; BP diastolic 72–93; PULSE 82–96; RESP 14–20; TEMP 97.8–98.3; O2SAT 96–100
[2024-08-01 05:24] LABS: Basophils # (auto) 0.2 10 ^3/uL (0-0.2); Eosinophils # (auto) 0 10 ^3/uL (0-0.8); Eosinophils % (auto) 0.3 % (0.0-7.0); Hemoglobin 20.6 g/dL (13.5-17.5); Lymphocytes # (auto) 0.7 10 ^3/uL (0.4-5.4); Lymphocytes % (auto) 7.4 % (10.0-50.0); Mean Corpuscular Hemoglobin 31.6 pg (28.0-32.0); Mean Corpuscular Hgb Conc. 35.2 g/dL (32.0-36.0); Mean Corpuscular Volume 89.8 fL (80.0-100.0); Monocytes # (auto) 0.8 10 ^3/uL (0-1.3); Neutrophils # (auto) 8.3 10 ^3/uL (1.6-8.6); Neutrophils % (auto) 82.3 % (37.0-80.0); Nucleated Red Blood Cells % 0.3 %; Platelet Count (auto) 195 10^3/uL (140-450); Red Cell Distribution Width 13.8 % (11.8-14.3)
[2024-08-01 05:26] LABS: Hematocrit 58.4 % (41.0-53.0)
[2024-08-01 05:48] LABS: Albumin 4.3 g/dL (3.2-4.8); Anion Gap 9 (5-15); BUN/Creatinine Ratio 14.4 (10.0-20.0); Blood Urea Nitrogen 20 mg/dL (9-23); Total Protein 7.3 g/dL (5.7-8.2)
[2024-08-01 05:50] LABS: Alanine Aminotransferase 352 U/L (7-40); Alkaline Phosphatase 129 U/L (46-116); Aspartate Aminotransferase 134 U/L (13-40); Bilirubin, Total 1.7 mg/dL (0.2-1.0); Carbon Dioxide 33 mmol/L (20-31); Chloride 84 mmol/L (98-107); Glucose 144 mg/dL (74-106); Potassium 2.7 mmol/L (3.5-5.1); Sodium 126 mmol/L (136-145)
[2024-08-01] MEDS: DexAMETHasone SOD PHOS 10MG/1ML VIAL INJ IV SCH (10:27)
[2024-08-01] MEDS: FAMOTIDINE (10MG/ML) 2ML VL IV SCH (10:27)
[2024-08-01] MEDS: ASPirin 81 mg TAB PO SCH (10:28)
[2024-08-01] MEDS: CLOPIDOGREL BISULFATE 75 MG TAB PO SCH (10:28)
[2024-08-01 10:44] LABS: Erythrocyte Sedimentation Rate 1 mm/hr (0-20)
[2024-08-01 11:33] LABS: % Iron Saturation 62.5 % (20-55)
--- NOTE | 2024-08-01 12:53 | DVH ---
INDICATION: rule out cirrhosis , check ascites TECHNIQUE: Multiple real-time sonographic images were obtained of the right upper quadrant. COMPARISON: US GALLBLADDER on DOS: 05/02/24 FINDINGS: The liver demonstrates homogeneous echotexture without focal mass lesions. The liver measu res 15.8 cm. There is no intrahepatic or extrahepatic ductal dilatation. The common duct measures 0.3 cm. Gallbladder sludge is present. The gallbladder wall measures 0.1 cm and is within normal limits. The right kidney measures 11.0 cm. The right kidney is normal in contour, size, and shape. The echo genicity is normal. There is no hydronephrosis. The pancreas is not well visualized due to overlying bowel gas. IMPRESSION: Gallbladder sludge is present.
--- NOTE | 2024-08-01 13:45 | ECG ---
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
[2024-08-01 13:57] LABS: Free T3 4.23 pg/mL (2.3-4.2); Free T4 (Free Thyroxine) 3.29 ng/dL (0.89-1.76)
[2024-08-01] MEDS: POTASSIUM CHL 20MEQ/100ML 100 ML IV SCH (14:07)
[2024-08-01] MEDS: SODIUM CHLORIDE 0.9% 1,000 ML IV SCH (16:00)
--- NOTE | 2024-08-01 16:42 | DVH ---
ULTRASOUND SOFT TISSUE HEAD AND NECK CLINICAL INDICATION: Hyperthyroid TECHNIQUE: Multiple real time sonographic images of the thyroid were obtained. Comparison: None FINDINGS: The right thyroid gland measures 5.6 x 1.9 x 2.0 cm. The left thyroid gland measures approximately 5.8 x 2.1 x 1.8 cm. The isthmus measures 0.4 cm. IMPRESSION: 1. Normal Thyroid. [employer] TI-RADS Categories and Recommendations (2017): TR1: 0 points, Benign, No FNA TR2: 2 points, Not suspicious, No FNA TR3: 3 points, Mildly suspicious, FNA if > or = 2.5 cm, Follow if > or = 1.5 cm TR4: 4-6 points, Moderately Suspicious, FNA if > or = 1.5 cm, Follow if > or = 1.0 cm TR5: 7+ points, Highly Suspicious, FNA if > or = 1.0 cm, Follow if > or = 0.5 cm Follow-up ultrasound guidelines: TR5: yearly for 5 years, if no growth or change in TI-RADS level TR4: at 1, 2, 3 and 5 years, if no growth or change in TI-RADS level TR3: at 1, 3 and 5 years, if no growth or change in TI-RADS level If increased but below threshold for FNA, repeat in one year. Source: ACR Thyroid Imaging, Reporting and Data System (TI-RADS): White Paper of the ACR TI-RADS Committee. Drake et al., J Am Lisa Radiol 2017;14:587-595.
[2024-08-01 17:13] LABS: Urine Bacteria None Seen /hpf (None Seen)
[2024-08-01 17:35] LABS: Urine Blood Negative /uL (Negative); Urine Clarity Clear (Clear); Urine Color Light-Yellow (Yellow); Urine Protein, UAD Negative (Negative); Urine Specific Gravity 1.026 (1.001-1.035); Urine Squamous Epithelial Cell None Seen /hpf (<5); Urine Urobilinogen Normal (Negative); Urine WBC < 1 /HPF (0-3)
[2024-08-01] MEDS: POTASSIUM CHL 20MEQ/100ML 100 ML IV ONE (18:16)
[2024-08-01 18:31] LABS: Amphetamine Screen, Urine Neg (NEGATIVE); Barbiturate Scree,Urine Neg (NEGATIVE); Benzodiazephine Screen, Urine Neg (NEGATIVE); Cannabinoid Screen, Urine Neg (NEGATIVE); Cocaine Screen, Urine Neg (NEGATIVE); Opiate Scree,Urine Neg (NEGATIVE); Phencyclidine Screen, Urine Neg (NEGATIVE)
[2024-08-01 21:46] LABS: Protein, Urine 66.8 mg/dL (1-14)
[2024-08-01 21:48] LABS: Creatinine, Urine 71.43 mg/dL (30.0-125.0)
--- NOTE | 2024-08-01 23:36 | DVHPNRES ---
Progress Note Date Seen: Aug 01, 2024 Resident Creating Document: CONRADO ELLIS RESIDENT Has the PT tested + for MRSA If YES, has PT been informed?: No Medical Necessity Reason Pt with a Central, PICC or Fol: No Subjective Review of Systems 38-year-old male who comes in with chief complaint of shortness a breath times 1-1/2 weeks. The patient was also complaining of some chest pain was substernal but resolved. The pain is nonradiating at this time. He describes the pain as pressure-like in nature. The patient does have a history of an AICD with possible CHF. He rates the pain as a 5/10 at that time. At the time of assessment no symptoms Objective vital signs Vital Sign Date Time Temp Pulse Resp B/P (MAP) Pulse Ox O2 Delivery O2 Flow Rate FiO2 08/01/24 21:00 98.3 89 20 128/72 (90) 100 98.3 08/01/24 10:46 Room Air* 0 21 Total Intake and Output 07/31/24 07/31/24 08/01/24 15:00 23:00 07:00 Intake Total 50 ml 60 ml Output Total 600 ml Balance 50 ml -540 ml medications Current Medications Medications Dose Ordered Sig/Kathleen Route Start Time Stop Time Status Last Admin Dose Admin Aspirin 81 mg DAILY PO 08/01/24 10:00 08/01/24 10:28 81 MG Clopidogrel Bisulfate 75 mg DAILY PO 08/01/24 10:00 08/01/24 10:28 75 MG Albuterol 2.5 mg Q4HPRN PRN NEB 07/31/24 13:45 Ipratropium [place] 0.5 mg Q4HPRN PRN NEB 07/31/24 13:45 Dexamethasone Sodium Phosphate 6 mg DAILY IV 08/01/24 10:00 08/01/24 10:27 6 MG Famotidine 20 mg DAILY IV 08/01/24 10:00 08/01/24 10:27 20 MG Acetaminophen/ Hydrocodone Bitart 1 tab Q4HP PRN PO 07/31/24 13:45 Ondansetron HCl 4 mg Q4HP PRN IV 07/31/24 13:45 Docusate Sodium 100 mg BIDPRN PRN PO 07/31/24 13:45 Acetaminophen 650 mg Q6HP PRN PO 07/31/24 13:45 Metoprolol Tartrate 25 mg BID PO 07/31/24 22:00 08/01/24 10:28 25 MG Atorvastatin Calcium 20 mg HS PO 07/31/24 22:00 07/31/24 22:36 20 MG Nitroglycerin 0.4 mg Q5MINP PRN SL 07/31/24 16:30 Morphine Sulfate 2 mg Q30M PRN IV 07/31/24 16:30 Sodium Chloride 1,000 ml @ 75 mls/hr [id number] IV 08/01/24 16:00 08/01/24 16:00 75 MLS/HR Examination General Appearance: No Distress HEENT: Normal ENT Inspection, Pharynx Normal, TMs Normal Neck: Full Range of Motion, Non-Tender, Normal, Normal Inspection Respiratory: Chest Non-Tender, Lungs Clear, No Accessory Muscle Use, No Respiratory Distress, Normal Breath Sounds Cardiovascular: No Edema, No JVD, No Murmur, No Gallop, Normal Peripheral Pulses, Regular Rate/Rhythm, Other (AICD in place) Breast Exam: Deferred Gastrointestinal: No Organomegaly, Non Tender, No Pulsatile Mass, Normal Bowel Sounds, Soft Genitalia: Deferred Pelvic: Deferred Rectal: Deferred Extremities: No calf tenderness, Normal capillary refill, Normal inspection, Normal range of motion, Non-tender, No pedal edema Musculoskeletal : Apperance: Normal Neurologic: Alert, general operations manager II-XII nml as Tested, No Motor Deficits, Normal Affect, Normal Mood, No Sensory Deficits Cerebellar Function: Normal Reflexes: Normal Skin: Dry, Normal Color, Warm Lymphatic: No Adenopathy laboratory and microbiology Laboratory Tests 08/01/24 05:15 Test 08/01/24 05:15 Range/Units Serum Glucose 144 H 74-106 mg/dL Problem List/Assessment/Plan Problem List/Assessment/Plan #Viral Pneumonitis #Polycitemia probably secondary #NSTEMI likely type 2 #ACS ruled out #CKD 3 a #Diastolic congestive heart failure-controlled #Paroxistic Atrial fibrillation #Hypertrophic cardiomyopathy status post AICD placement for secondary prevention (history of V-tach) #Hypokalemia #Hyponatremia: euvolemic #Hepatic steatosis #Transaminitis #Obstructive sleep apnea #Hyperthyrodisim vs thyroiditis? #Gout No need of o2 Cardiac diet Breathing tretaments Covid and flu swab Continue home meds Patient is following Dr Gay and cardiology in for possible myomectomy, also f/u with Dr Hernandez for polycitemia probably secondary to sleep apnea?, and Dr Lam Gay due to gout who is giving Krystaxa infusion with improvement in gout symptoms. Per cardiology: ACS ruled out Patient flu symptoms are resolving, patient is stable but is not clear the reason of his labs abnormalities: electrolyte imbalance, trasaminitis hyperthyroidism and polycitemia: cortisol levels, ANAs, renin, aldosterone activity EPO levels and images from thyroid which is normal and liver (hepatic steatosis) were ordered. Possible DC tomorrow, f/u results in DC clinic, continue with PCP Dr Lam Gay Case discussed with Dr Archuleta Time spent on care 23 min Plan discussed with: Patient, Other (rn) My Orders My Orders Orders - CONRADO ELLIS RESIDENT Procedure Category Date Status Time LIVER US 08/01/24 Resulted 09:34 Erythropoietin LAB 08/01/24 In Process 09:39 Cortisol Am LAB 08/01/24 Logged 10:38 Thyroid US 08/01/24 Resulted 15:28 Thyrotropin Receptor LAB 08/01/24 In Process Antibody 15:28 Thyroid Stimulating LAB 08/01/24 In Process Immunoglob 15:28 Sodium Chloride 0.9% PHA 08/01/24 In Process 16:00 Thelma; Direct LAB 08/01/24 In Process 18:15 Aldosterone LAB 08/01/24 In Process 18:19 Renin Activity And LAB 08/01/24 In Process Aldosterone 18:19 CONRADO ELLIS RESIDENT Aug 01, 2024 23:36
[2024-08-02] VITALS (9 sets, daily range): BP systolic 107–143; BP diastolic 61–86; PULSE 75–88; RESP 14–20; TEMP 97.6–98.9; O2SAT 96–100
[2024-08-02 07:36] LABS: Basophils # (auto) 0 10 ^3/uL (0-0.2); Eosinophils # (auto) 0 10 ^3/uL (0-0.8); Mean Corpuscular Volume 91.7 fL (80.0-100.0)
[2024-08-02 07:41] LABS: Basophils % (auto) 0.1 % (0.0-2.0); Eosinophils % (auto) 0.1 % (0.0-7.0); Hematocrit 54.4 % (41.0-53.0); Hemoglobin 18.6 g/dL (13.5-17.5); Lymphocytes # (auto) 1.1 10 ^3/uL (0.4-5.4); Lymphocytes % (auto) 7.9 % (10.0-50.0); Mean Corpuscular Hemoglobin 31.3 pg (28.0-32.0); Mean Corpuscular Hgb Conc. 34.1 g/dL (32.0-36.0); Monocytes # (auto) 1.6 10 ^3/uL (0-1.3); Monocytes % (auto) 12.3 % (0.0-12.0); Neutrophils # (auto) 10.6 10 ^3/uL (1.6-8.6); Neutrophils % (auto) 79.6 % (37.0-80.0); Nucleated Red Blood Cells % 0.2 %; Platelet Count (auto) 182 10^3/uL (140-450); Red Blood Cells 5.93 10^6/uL (4.5-5.90); Red Cell Distribution Width 14.1 % (11.8-14.3); White Blood Cell 13.3 10^3/uL (4.4-10.8)
[2024-08-02 07:53] LABS: Calcium 9.7 mg/dL (8.7-10.4)
[2024-08-02 07:54] LABS: Anion Gap 6 (5-15); BUN/Creatinine Ratio 14.4 (10.0-20.0); Bilirubin, Total 1.2 mg/dL (0.2-1.0); Blood Urea Nitrogen 18 mg/dL (9-23); Total Protein 6.3 g/dL (5.7-8.2)
[2024-08-02 07:56] LABS: Alanine Aminotransferase 271 U/L (7-40); Alkaline Phosphatase 197 U/L (46-116); Aspartate Aminotransferase 97 U/L (13-40); Carbon Dioxide 33 mmol/L (20-31); Chloride 91 mmol/L (98-107); Glucose 116 mg/dL (74-106); Potassium 3.2 mmol/L (3.5-5.1); Sodium 130 mmol/L (136-145)
[2024-08-02 08:06] LABS: Thyrotropin Receptor Antibody 1.43 IU/L (0.00-1.75)
--- NOTE | 2024-08-02 11:18 | DVHINCON2 ---
Date of service: Aug 01, 2024 Referring Physician Jamie Reason for Consultation Elevated troponin. History of Present Illness This is a 38 year old male with a PMH of AFIB, CHF, COPD, Gout, HTN, ND who presented to the ED with complaints of shortness a breath times 7-10 days. Patient was also complaining of substernal chest pain. Chest pain is nonradiating at this time. He describes the pain as pressure-like in nature. EKG is NSR at 97. HGB 6.9, HCT 21.3, D-dimer 0.27, NA 126, K 2.1, CO2 35, Senior Accountant 1.60, troponin 184, BNP 87, CA 10.5. Patient was admitted to the hospital. I am asked to consult on this patient. Family History: Cardiovascular disease Diabetes mellitus G8 FATHER, Onset:Unknown FH: CHF (congestive heart failure) G8 FATHER, Onset:Unknown Allergies: Coded Allergies: NO KNOWN ALLERGIES (Unverified , 03/15/19) Home Meds Active Scripts Spironolactone (Spironolactone) 100 Mg Tab, 1 TAB PO DAILY, #30 TAB 11 Refills Prov:NESHA RICHTER RESIDENT 05/03/24 Pantoprazole Sodium Sesquihydr (Pantoprazole Sodium) 40 Mg Tab, 40 MG PO DAILY for 30 Days, #30 TAB Prov:NESHA RICHTER RESIDENT 05/03/24 Metoprolol Tartrate (Lopressor) 25 Mg Tb, 25 MG PO BID for 30 Days, #60 TAB Prov:KENNEDY CARVER 12/01/23 Ergocalciferol (VITAMIN D 74374 UNIT) 50,000 [place], [address] UNIT PO Q7D for 30 Days, #10 CAP Prov:KENNEDY CARVER 12/01/23 Amiodarone HCl (Amiodarone HCl) 200 Mg Tab, 200 MG PO BID for 30 Days, #60 TAB Prov:KENNEDY CARVER 12/01/23 Empagliflozin (Jardiance) 10 Mg Tab, 10 MG PO QAM for 30 Days, #30 TAB 3 Refills Prov:ANSLEY ORTEGA MD 07/09/22 Atorvastatin Calcium (ATORVASTATIN CALCIUM) 20 Mg Tab, 1 TAB PO DAILY, #30 TAB 5 Refills Prov:JESSICA GRESHAM MD 05/16/22 Clopidogrel Bisulfate (Plavix) 75 Mg Tab, 1 TAB PO DAILY, #30 TAB 1 Refill Prov:JESSICA GRESHAM MD 05/16/22 Reported Medications Semaglutide (Wegovy) 2.4 Mg/0.75 Ml Inj, 2.4 MG SC ONCE, INJ 05/01/24 Ferric Citrate (Auryxia) 210 Mg Tab, 210 MG PO TID, TAB 05/01/24 Mycophenolate Mofetil (Cellcept) 500 Mg Tab, 2 TAB PO BID, #360 TAB 3 Refills 05/01/24 Mavacamten (Camzyos) 5 Mg Cap, 5 MG PO DAILY, CAP 05/01/24 Bumetanide (Bumex) 2 Mg Tab, 1 MG PO DAILY 11/29/23 Vericiguat (Verquvo) 2.5 Mg Tab, 2.5 MG PO DAILY, TAB 11/29/23 Spironolactone (Spironolactone) 100 Mg Tab, 100 MG PO BID, TAB 11/29/23 Allopurinol (Allopurinol) 100 Mg Tab, 200 MG PO DAILY, TAB 10/25/20 Current Medications Current Medications Medications (Trade) Dose Ordered Sig/Kathleen Route PRN Reason Start Time Stop Time Status Last Admin Sodium Chloride 1,000 ml @ 75 mls/hr [id number] IV 08/01/24 16:00 08/02/24 05:20 Potassium Chloride 100 ml @ 50 mls/hr Q2H IV 08/02/24 09:15 08/02/24 13:14 Review of Systems Constitutional: No: Fever, Chills, Sweats, Weakness, Malaise, Other Eyes: No: Pain, Vision change, Conjunctivae inflammation, Eyelid inflammation, Other, Redness ENT: No: Ear pain, Ear discharge, Nose pain, Nose discharge, Nose congestion, Mouth pain, Mouth swelling, Throat pain, Throat swelling, Other Respiratory: Shortness of breath; No: Cough, Dry, SOB with excertion, Wheezing, Hemoptysis, Pleuritic Pain, Sputum, Wheezing, Other Cardiovascular: Chest Pain; No: Palpitations, Orthopnea, Paroxysmal Noc. Dyspnea, Edema, Lt Headedness, Other Gastrointestinal: No: Nausea, Vomiting, Abdominal Pain, Diarrhea, Constipation, Melena, Hematochezia, Other Genitourinary: No Dysuria, No Frequency, No Incontinence, No Hematuria, No Retention, No Other Musculoskeletal: No: other, neck pain, shoulder pain, arm pain, back pain, hand pain, leg pain, foot pain Skin: No: Rash, Lesions, Jaundice, Bruising, Other Neurological: No: Weakness, Numbness, Incoordination, Change in speech, Confusion, Seizures, Othe Vital Signs Vital Signs Date Time Temp Pulse Resp B/P (MAP) Pulse Ox O2 Delivery O2 Flow Rate FiO2 08/02/24 10:43 86 133/91 08/02/24 09:00 98.1 19 100 98.1 08/01/24 23:40 Nasal Cannula* 2 28 Physical Exam GENERAL: Awake, alert, oriented. Obese. LUNGS: Clear. CARDIOVASCULAR: Heart sounds are good. ABDOMEN: Soft. Labs/Diagnostic Data Labs Test 08/02/24 06:45 08/01/24 19:24 08/01/24 16:45 08/01/24 16:00 Range/Units White Blood Count 13.3 #H 4.4-10.8 10^3/uL Red Blood Count 5.93 H 4.5-5.90 10^6/uL Hemoglobin 18.6 H 13.5-17.5 g/dL Hematocrit 54.4 H 41.0-53.0 % Mean Corpuscular Volume 91.7 80.0-100.0 fL Mean Corpuscular Hemoglobin 31.3 28.0-32.0 pg Mean Corpuscular Hemoglobin Concent 34.1 32.0-36.0 g/dL Red Cell Distribution Width 14.1 11.8-14.3 % Platelet Count 182 140-450 10^3/uL Mean Platelet Volume 9.4 6.9-10.8 fL Neutrophils (%) (Auto) 79.6 37.0-80.0 % Lymphocytes (%) (Auto) 7.9 L 10.0-50.0 % Monocytes (%) (Auto) 12.3 H 0.0-12.0 % Eosinophils (%) (Auto) 0.1 0.0-7.0 % Basophils (%) (Auto) 0.1 0.0-2.0 % Neutrophils # (Auto) 10.6 H 1.6-8.6 10 ^3/uL Lymphocytes # (Auto) 1.1 0.4-5.4 10 ^3/uL Monocytes # (Auto) 1.6 H 0-1.3 10 ^3/uL Eosinophils # (Auto) 0 0-0.8 10 ^3/uL Basophils # (Auto) 0 0-0.2 10 ^3/uL Nucleated Red Blood Cells 0.2 % Sodium Level 130 L 136-145 mmol/L Potassium Level 3.2 L 3.5-5.1 mmol/L Chloride Level 91 L 98-107 mmol/L Carbon Dioxide Level 33 H 20-31 mmol/L Anion Gap 6 5-15 Blood Urea Nitrogen 18 9-23 mg/dL Creatinine 1.25 0.700-1.30 mg/dL Glomerular Filtration Rate Calc 75 >90 mL/min BUN/Creatinine Ratio 14.4 10.0-20.0 Serum Glucose 116 H 74-106 mg/dL Calcium Level 9.7 8.7-10.4 mg/dL Total Bilirubin 1.2 H 0.2-1.0 mg/dL Aspartate Amino Transferase (AST) 97 H 13-40 U/L Alanine Aminotransferase (ALT) 271 H 7-40 U/L Alkaline Phosphatase 197 H 46-116 U/L Total Protein 6.3 5.7-8.2 g/dL Albumin 4.0 3.2-4.8 g/dL Cortisol AM Sample 1.61 L 5.27-22.45 ug/dL Thyrotropin Receptor Antibody 1.43 0.00-1.75 IU/L Urine Color Light-yellow Yellow Urine Clarity Clear Clear Urine pH 6.0 5.0-9.0 Urine Specific [place] 1.026 1.001-1.035 Urine Protein Negative Negative Urine Ketones Negative Negative Urine Blood Negative Negative /uL Urine Nitrite Negative Negative Urine Bilirubin Negative Negative Urine Urobilinogen Normal Negative mg/dL Urine Leukocyte Esterase Negative Negative /uL Urine RBC <1 0 - 3 /hpf Urine Microscopic WBC < 1 0-3 /HPF Urine Squamous Epithelial Cells None seen <5 /hpf Urine Bacteria None seen None Seen /hpf Urine Osmolality 594 mOsm/kg Urine Creatinine 71.43 30.0-125.0 mg/dL Urine Sodium 18 L 40-220 mmol/L Urine Glucose 4+ H Normal mg/dL Urine Total Protein 66.8 H 1-14 mg/dL Urine Opiates Screen Neg NEGATIVE Urine Fentanyl Screen Neg NEGATIVE Urine Barbiturates Screen Neg NEGATIVE Urine Phencyclidine Screen Neg NEGATIVE Urine Amphetamines Screen Neg NEGATIVE Urine Benzodiazepines Screen Neg NEGATIVE Urine Cocaine Screen Neg NEGATIVE Urine Cannabinoids Screen Neg NEGATIVE Test 08/01/24 11:05 08/01/24 05:15 07/31/24 13:56 07/31/24 10:52 Range/Units Serum Osmolality 280 278-298 mOsm/kg Iron Level 163 65-175 ug/dL Total Iron Binding Capacity 261 250-425 ug/dL Percent Iron Saturation 62.5 H 20-55 % Ferritin 1053.6 H 22-322 ng/mL Free Thyroxine (T4) Calculated 3.29 H 0.89-1.76 ng/dL Free Triiodothyronine (T3) pg/mL 4.23 H 2.3-4.2 pg/mL Erythrocyte Sedimentation Rate 1 0-20 mm/hr Uric Acid < 0.5 L 3.7-9.2 mg/dL Erythropoietin 3.4 2.6-18.5 mIU/mL Thyroid Stimulating Hormone (TSH) 0.02 L 0.55-4.78 uIU/mL Troponin I High Sensitivity 185 *H </=54 ng/L D-Dimer, Quantitative 0.27 0.0-0.49 mg/L FEU Hemoglobin A1c 5.7 <5.7 % A1C B-Type Natriuretic Peptide 87.16 0-100 pg/mL Assessment Viral pneumonitis. Polycythemia. NSTEMI likely type 2. CKD 3 a. Diastolic congestive heart failure. Atrial fibrillation. Hypertrophic cardiomyopathy status post AICD placement for secondary prevention (history of V-tach). Hypokalemia. Hyponatremia. Hepatic steatosis. Transaminitis. Obstructive sleep apnea. Gout. HTN. Plan/Recommendation I agree with your ongoing assessment and care of plan. Echocardiogram. Morphine and Meherrin for pain management. Aspirin, Lipitor, Plavix, Metoprolol. Additional plan as per the hospital course. A total of 45 minutes was spent reviewing the patient record, examining the patient, making a diagnostic and therapeutic plan, discussing this plan with medical personnel, following up on diagnostic studies and following the patient for clinical stability excluding any and all procedures. At least 50% of this time was spent in direct, ygff-ne-doro contact. Plan discussed with: Patient TONYA HOLMAN MD Aug 02, 2024 11:18
[2024-08-02] MEDS: POTASSIUM CHL 20MEQ/100ML 100 ML IV SCH (11:30)
--- NOTE | 2024-08-02 14:27 | DVHPNRES ---
Progress Note Date Seen: Aug 02, 2024 Resident Creating Document: CONRADO ELLIS RESIDENT Has the PT tested + for MRSA If YES, has PT been informed?: No Medical Necessity Reason Pt with a Central, PICC or Fol: No Subjective Review of Systems 38-year-old male who comes in with chief complaint of shortness a breath times 1-1/2 weeks. The patient was also complaining of some chest pain was substernal but resolved. The pain is nonradiating at this time. He describes the pain as pressure-like in nature. The patient does have a history of an AICD with possible CHF. He rates the pain as a 5/10 at that time. At the time of assessment no symptoms Objective vital signs Vital Sign Date Time Temp Pulse Resp B/P (MAP) Pulse Ox O2 Delivery O2 Flow Rate FiO2 08/02/24 10:43 86 133/91 08/02/24 09:00 98.1 19 100 98.1 08/02/24 08:00 Nasal Cannula* 2 28 Total Intake and Output 08/01/24 08/01/24 08/02/24 15:00 23:00 07:00 Intake Total 1000 ml 1950 ml Output Total 700 ml Balance 1000 ml 1250 ml medications Current Medications Medications Dose Ordered Sig/Kathleen Route Start Time Stop Time Status Last Admin Dose Admin Aspirin 81 mg DAILY PO 08/01/24 10:00 08/02/24 10:41 81 MG Clopidogrel Bisulfate 75 mg DAILY PO 08/01/24 10:00 08/02/24 10:42 75 MG Albuterol 2.5 mg Q4HPRN PRN NEB 07/31/24 13:45 Ipratropium [place] 0.5 mg Q4HPRN PRN NEB 07/31/24 13:45 Famotidine 20 mg DAILY IV 08/01/24 10:00 08/02/24 10:43 20 MG Acetaminophen/ Hydrocodone Bitart 1 tab Q4HP PRN PO 07/31/24 13:45 Ondansetron HCl 4 mg Q4HP PRN IV 07/31/24 13:45 Docusate Sodium 100 mg BIDPRN PRN PO 07/31/24 13:45 Acetaminophen 650 mg Q6HP PRN PO 07/31/24 13:45 Metoprolol Tartrate 25 mg BID PO 07/31/24 22:00 08/02/24 10:43 25 MG Atorvastatin Calcium 20 mg HS PO 07/31/24 22:00 08/01/24 23:53 20 MG Nitroglycerin 0.4 mg Q5MINP PRN SL 07/31/24 16:30 Morphine Sulfate 2 mg Q30M PRN IV 07/31/24 16:30 Sodium Chloride 1,000 ml @ 75 mls/hr [id number] IV 08/01/24 16:00 08/02/24 05:20 75 MLS/HR Examination General Appearance: No Distress HEENT: Normal ENT Inspection, Pharynx Normal, TMs Normal Neck: Full Range of Motion, Non-Tender, Normal, Normal Inspection Respiratory: Chest Non-Tender, Lungs Clear, No Accessory Muscle Use, No Respiratory Distress, Normal Breath Sounds Cardiovascular: No Edema, No JVD, No Murmur, No Gallop, Normal Peripheral Pulses, Regular Rate/Rhythm, Other (AICD in place) Breast Exam: Deferred Gastrointestinal: No Organomegaly, Non Tender, No Pulsatile Mass, Normal Bowel Sounds, Soft Genitalia: Deferred Pelvic: Deferred Rectal: Deferred Extremities: No calf tenderness, Normal capillary refill, Normal inspection, Normal range of motion, Non-tender, No pedal edema Musculoskeletal : Apperance: Normal Neurologic: Alert, superannuation clerk II-XII nml as Tested, No Motor Deficits, Normal Affect, Normal Mood, No Sensory Deficits Cerebellar Function: Normal Reflexes: Normal Skin: Dry, Normal Color, Warm Lymphatic: No Adenopathy laboratory and microbiology Laboratory Tests 08/02/24 06:45 Test 08/02/24 06:45 Range/Units Serum Glucose 116 H 74-106 mg/dL Problem List/Assessment/Plan Problem List/Assessment/Plan #Viral Pneumonitis #Polycitemia probably secondary #NSTEMI likely type 2 #ACS ruled out #CKD 3 a #Diastolic congestive heart failure-controlled #Paroxistic Atrial fibrillation #Hypertrophic cardiomyopathy status post AICD placement for secondary prevention (history of V-tach) #Hypokalemia #Hyponatremia: euvolemic #Hepatic steatosis #Transaminitis #Obstructive sleep apnea #Hyperthyrodisim vs thyroiditis? #Gout #Hypertension #Adrenal insufficiency? No need of o2 Cardiac diet Breathing tretaments Covid and flu swab Continue home meds Patient is following Dr Gay and cardiology in for possible septal myectomy, also f/u with Dr Hernandez for polycitemia probably secondary to sleep apnea?, and Dr Lam Gay due to gout who is giving Krystaxa infusion with improvement in gout symptoms. Per cardiology: ACS ruled out Normal levels of EPO Pt received dexamethasone which can influence low levels of cortisol, pending ACTH Patient flu symptoms are resolving, patient is stable but is not clear the reason of his labs abnormalities: electrolyte imbalance, trasaminitis hyperthyroidism and polycitemia: ANAs, renin, aldosterone activity EPO levels and images from thyroid which is normal and liver (hepatic steatosis) were ordered. Possible DC tomorrow (today still patient with hyponatremia and hypokalemia), f/u results in DC clinic, continue with PCP Dr Lam Gay Case discussed with Dr Roberts Time spent on care 23 min Plan discussed with: Patient, Other (rn) My Orders My Orders Orders - CONRADO ELLIS Procedure Category Date Status Time Thyroid US 08/01/24 Resulted 15:28 Thyrotropin Receptor LAB 08/01/24 In Process Antibody 15:28 Thyroid Stimulating LAB 08/01/24 In Process Immunoglob 15:28 Sodium Chloride 0.9% PHA 08/01/24 In Process 16:00 Thelma; Direct LAB 08/01/24 In Process 18:15 Aldosterone LAB 08/01/24 In Process 18:19 Renin Activity And LAB 08/01/24 In Process Aldosterone 18:19 Covid19 Antigen Trupti LAB 08/02/24 Logged Rapid Influenza A&B LAB 08/02/24 Logged 06:49 Basic Metabolic Panel LAB 08/02/24 Logged 14:00 Adrenocorticotropic LAB 08/02/24 Logged Hormone 10:40 Thyroid Stimulating LAB 08/03/24 Verified Hormone 04:00 Free T4 (Free LAB 08/03/24 Verified Thyroxine) 04:00 Free T3 LAB 08/03/24 Verified 04:00 Date of Service: Aug 02, 2024 Billing Provider: JEROMY ROBERTS MD Common Visit Codes: [id number] INP/OBS CARE(HIGH) CONRADO ELLIS RESIDENT Aug 02, 2024 14:27 JEROMY ROBERTS MD Aug 02, 2024 23:09
[2024-08-02 15:16] LABS: Anion Gap 9 (5-15); Carbon Dioxide 28 mmol/L (20-31)
[2024-08-02 15:17] LABS: Calcium 9.4 mg/dL (8.7-10.4)
[2024-08-02 15:21] LABS: BUN/Creatinine Ratio 19.1 (10.0-20.0); Blood Urea Nitrogen 21 mg/dL (9-23)
[2024-08-02 15:23] LABS: Chloride 95 mmol/L (98-107); Glucose 160 mg/dL (74-106); Potassium 3.4 mmol/L (3.5-5.1); Sodium 132 mmol/L (136-145)
--- NOTE | 2024-08-02 20:33 | DVHPN2 ---
Progress Note - Dictate Date Seen: Aug 02, 2024 Has the PT tested + for MRSA If YES, has PT been informed?: No Medical Necessity Reason Pt with a Central, PICC or Fol: No Subjective Patient was seen and evaluated in follow up. Patient is complaining of SOB. The patient is on 2 LPM NC. WBC 13.3, K 3.2, CL 91, CO2 33, AST 97, ALT 271. Echocardiogram is ordered. Telemetry reviewed. vital signs Vital Sign Date Time Temp Pulse Resp B/P (MAP) Pulse Ox O2 Delivery O2 Flow Rate FiO2 08/02/24 10:43 86 133/91 08/02/24 09:00 98.1 19 100 98.1 08/01/24 23:40 Nasal Cannula* 2 28 Total Intake and Output 08/01/24 08/01/24 08/02/24 15:00 23:00 07:00 Intake Total 1000 ml 1950 ml Output Total 700 ml Balance 1000 ml 1250 ml medications Current Medications Medications Dose Ordered Sig/Kathleen Route Start Time Stop Time Status Last Admin Dose Admin Aspirin 81 mg DAILY PO 08/01/24 10:00 08/02/24 10:41 81 MG Clopidogrel Bisulfate 75 mg DAILY PO 08/01/24 10:00 08/02/24 10:42 75 MG Albuterol 2.5 mg Q4HPRN PRN NEB 07/31/24 13:45 Ipratropium [place] 0.5 mg Q4HPRN PRN NEB 07/31/24 13:45 Famotidine 20 mg DAILY IV 08/01/24 10:00 08/02/24 10:43 20 MG Acetaminophen/ Hydrocodone Bitart 1 tab Q4HP PRN PO 07/31/24 13:45 Ondansetron HCl 4 mg Q4HP PRN IV 07/31/24 13:45 Docusate Sodium 100 mg BIDPRN PRN PO 07/31/24 13:45 Acetaminophen 650 mg Q6HP PRN PO 07/31/24 13:45 Metoprolol Tartrate 25 mg BID PO 07/31/24 22:00 08/02/24 10:43 25 MG Atorvastatin Calcium 20 mg HS PO 07/31/24 22:00 08/01/24 23:53 20 MG Nitroglycerin 0.4 mg Q5MINP PRN SL 07/31/24 16:30 Morphine Sulfate 2 mg Q30M PRN IV 07/31/24 16:30 Sodium Chloride 1,000 ml @ 75 mls/hr [id number] IV 08/01/24 16:00 08/02/24 05:20 75 MLS/HR objective GENERAL: Awake, alert, oriented. Obese. LUNGS: Clear. CARDIOVASCULAR: Heart sounds are good. ABDOMEN: Soft. laboratory and microbiology Laboratory Tests 08/02/24 06:45 Test 08/02/24 06:45 Range/Units Serum Glucose 116 H 74-106 mg/dL Problem List Viral pneumonitis. Polycythemia. NSTEMI likely type 2. CKD 3 a. Diastolic congestive heart failure. Atrial fibrillation. Hypertrophic cardiomyopathy status post AICD placement for secondary prevention (history of V-tach). Hypokalemia. Hyponatremia. Hepatic steatosis. Transaminitis. Obstructive sleep apnea. Gout. HTN. Assessment/Plan Continued all current supportive medical care. Echocardiogram. Morphine and [place] for pain management. Aspirin, Lipitor, Plavix, Metoprolol. Additional plan as per the hospital course. Plan discussed with: Patient TONYA HOLMAN MD Aug 02, 2024 13:50
[2024-08-03 01:00] VITALS: BP 115/83; PULSE 80; RESP 18; TEMP 98.8; O2SAT 98
[2024-08-03 05:00] VITALS: BP 107/61; PULSE 81; RESP 18; TEMP 98.8; O2SAT 95
[2024-08-03 08:00] VITALS: PULSE 85
[2024-08-03 09:00] VITALS: BP 133/73; PULSE 91; RESP 20; TEMP 97.6; O2SAT 97
[2024-08-03 11:03] LABS: Basophils # (auto) 0 10 ^3/uL (0-0.2); Eosinophils # (auto) 0.1 10 ^3/uL (0-0.8); Lymphocytes # (auto) 1.8 10 ^3/uL (0.4-5.4); Monocytes # (auto) 1.2 10 ^3/uL (0-1.3)
[2024-08-03 11:05] LABS: Basophils % (auto) 0.3 % (0.0-2.0); Eosinophils % (auto) 0.9 % (0.0-7.0); Hematocrit 53.4 % (41.0-53.0); Hemoglobin 18.2 g/dL (13.5-17.5); Lymphocytes % (auto) 23.6 % (10.0-50.0); Mean Corpuscular Hemoglobin 31.7 pg (28.0-32.0); Mean Corpuscular Hgb Conc. 34.1 g/dL (32.0-36.0); Monocytes % (auto) 15.1 % (0.0-12.0); Neutrophils # (auto) 4.7 10 ^3/uL (1.6-8.6); Neutrophils % (auto) 60.1 % (37.0-80.0); Nucleated Red Blood Cells % 0.2 %; Platelet Count (auto) 191 10^3/uL (140-450); Red Blood Cells 5.74 10^6/uL (4.5-5.90); Red Cell Distribution Width 14.1 % (11.8-14.3); White Blood Cell 7.7 10^3/uL (4.4-10.8)
[2024-08-03 11:21] LABS: Albumin 3.9 g/dL (3.2-4.8); Anion Gap 7 (5-15); BUN/Creatinine Ratio 9.2 (10.0-20.0); Bilirubin, Total 0.7 mg/dL (0.2-1.0); Blood Urea Nitrogen 10 mg/dL (9-23); Calcium 8.9 mg/dL (8.7-10.4); Carbon Dioxide 23 mmol/L (20-31); Chloride 103 mmol/L (98-107); Free T3 3.69 pg/mL (2.3-4.2); Potassium 3.7 mmol/L (3.5-5.1); Total Protein 6.1 g/dL (5.7-8.2)
[2024-08-03 11:22] LABS: Free T4 (Free Thyroxine) 2.4 ng/dL (0.89-1.76)
[2024-08-03 11:23] LABS: Alanine Aminotransferase 334 U/L (7-40); Alkaline Phosphatase 299 U/L (46-116); Aspartate Aminotransferase 171 U/L (13-40); Glucose 153 mg/dL (74-106); Sodium 133 mmol/L (136-145)
[2024-08-03 13:00] VITALS: BP 133/73; PULSE 91; RESP 20; TEMP 97.6; O2SAT 97
[2024-08-03 13:22] VITALS: BP 133/73; PULSE 91
--- NOTE | 2024-08-03 13:27 | DVHPN2 ---
Progress Note - Dictate Date Seen: Aug 03, 2024 Has the PT tested + for MRSA If YES, has PT been informed?: No Medical Necessity Reason Pt with a Central, PICC or Fol: No Subjective Patient was seen and evaluated in follow up. Patient's SOB has resolved. Patient is stable on room air. Patient denies any chest pain. AST 171, ALT 334. Telemetry reviewed. vital signs Vital Sign Date Time Temp Pulse Resp B/P (MAP) Pulse Ox O2 Delivery O2 Flow Rate FiO2 08/03/24 10:19 85 118/87 08/03/24 08:00 Room Air* 0 21 08/03/24 05:00 98.8 18 95 98.8 Total Intake and Output 08/02/24 08/02/24 08/03/24 15:00 23:00 07:00 Intake Total 600 ml 800 ml Output Total 1000 ml Balance 600 ml -200 ml medications Current Medications Medications Dose Ordered Sig/Kathleen Route Start Time Stop Time Status Last Admin Dose Admin Aspirin 81 mg DAILY PO 08/01/24 10:00 08/03/24 10:18 81 MG Clopidogrel Bisulfate 75 mg DAILY PO 08/01/24 10:00 08/03/24 10:19 75 MG Famotidine 20 mg DAILY IV 08/01/24 10:00 08/03/24 10:19 20 MG Acetaminophen/ Hydrocodone Bitart 1 tab Q4HP PRN PO 07/31/24 13:45 Ondansetron HCl 4 mg Q4HP PRN IV 07/31/24 13:45 Docusate Sodium 100 mg BIDPRN PRN PO 07/31/24 13:45 Acetaminophen 650 mg Q6HP PRN PO 07/31/24 13:45 Metoprolol Tartrate 25 mg BID PO 07/31/24 22:00 08/03/24 10:19 25 MG Atorvastatin Calcium 20 mg HS PO 07/31/24 22:00 08/02/24 22:05 20 MG Nitroglycerin 0.4 mg Q5MINP PRN SL 07/31/24 16:30 Morphine Sulfate 2 mg Q30M PRN IV 07/31/24 16:30 Sodium Chloride 1,000 ml @ 75 mls/hr [id number] IV 08/01/24 16:00 08/03/24 10:22 75 MLS/HR objective GENERAL: Awake, alert, oriented. Obese. LUNGS: Clear. CARDIOVASCULAR: Heart sounds are good. ABDOMEN: Soft. laboratory and microbiology Laboratory Tests 08/03/24 10:27 Test 08/03/24 10:27 Range/Units Serum Glucose 153 H 74-106 mg/dL Problem List Viral pneumonitis. Polycythemia. NSTEMI likely type 2. CKD 3 a. Diastolic congestive heart failure. Atrial fibrillation. Hypertrophic cardiomyopathy status post AICD placement for secondary prevention (history of V-tach). Hypokalemia. Hyponatremia. Hepatic steatosis. Transaminitis. Obstructive sleep apnea. Gout. HTN. Assessment/Plan Continued all current supportive medical care. Echocardiogram. Morphine and [place] for pain management. Aspirin, Lipitor, Plavix, Metoprolol. Additional plan as per the hospital course. Plan discussed with: Patient TONYA HOLMAN MD Aug 03, 2024 12:13
[2024-08-03] MEDS: POTASSIUM CHL 20MEQ/100ML 100 ML IV SCH (14:21)
[2024-08-03 15:06] LABS: Thyroid Stimulating Immunoglob <0.10 IU/L (0.00-0.55)
--- NOTE | 2024-08-04 06:43 | DVHDSRES ---
Discharge Summary Date of Admission Resident Creating Document: CONRADO ELLIS RESIDENT Jul 31, 2024 at 16:20 Date of Discharge: Aug 03, 2024 Admitting Diagnosis #Viral Pneumonitis #NSTEMI likely type 2 #ACS ruled out Labs/Diagnostic Data: Laboratory Results Test 08/03/24 10:27 08/02/24 15:30 08/02/24 06:45 08/01/24 19:24 White Blood Count 7.7 10^3/uL (4.4-10.8) Red Blood Count 5.74 10^6/uL (4.5-5.90) Hemoglobin 18.2 g/dL (13.5-17.5) Hematocrit 53.4 % (41.0-53.0) Mean Corpuscular Volume 93.0 fL (80.0-100.0) Mean Corpuscular Hemoglobin 31.7 pg (28.0-32.0) Mean Corpuscular Hemoglobin Concent 34.1 g/dL (32.0-36.0) Red Cell Distribution Width 14.1 % (11.8-14.3) Platelet Count 191 10^3/uL (140-450) Mean Platelet Volume 9.5 fL (6.9-10.8) Neutrophils (%) (Auto) 60.1 % (37.0-80.0) Lymphocytes (%) (Auto) 23.6 % (10.0-50.0) Monocytes (%) (Auto) 15.1 % (0.0-12.0) Eosinophils (%) (Auto) 0.9 % (0.0-7.0) Basophils (%) (Auto) 0.3 % (0.0-2.0) Neutrophils # (Auto) 4.7 10 ^3/uL (1.6-8.6) Lymphocytes # (Auto) 1.8 10 ^3/uL (0.4-5.4) Monocytes # (Auto) 1.2 10 ^3/uL (0-1.3) Eosinophils # (Auto) 0.1 10 ^3/uL (0-0.8) Basophils # (Auto) 0 10 ^3/uL (0-0.2) Nucleated Red Blood Cells 0.2 % Sodium Level 133 mmol/L (136-145) Potassium Level 3.7 mmol/L (3.5-5.1) Chloride Level 103 mmol/L (98-107) Carbon Dioxide Level 23 mmol/L (20-31) Anion Gap 7 (5-15) Blood Urea Nitrogen 10 mg/dL (9-23) Creatinine 1.09 mg/dL (0.700-1.30) Glomerular Filtration Rate Calc 88 mL/min (>90) BUN/Creatinine Ratio 9.2 (10.0-20.0) Serum Glucose 153 mg/dL (74-106) Calcium Level 8.9 mg/dL (8.7-10.4) Total Bilirubin 0.7 mg/dL (0.2-1.0) Aspartate Amino Transferase (AST) 171 U/L (13-40) Alanine Aminotransferase (ALT) 334 U/L (7-40) Alkaline Phosphatase 299 U/L (46-116) Total Protein 6.1 g/dL (5.7-8.2) Albumin 3.9 g/dL (3.2-4.8) Thyroid Stimulating Hormone (TSH) 0.04 uIU/mL (0.55-4.78) Free Thyroxine (T4) Calculated 2.40 ng/dL (0.89-1.76) Free Triiodothyronine (T3) pg/mL 3.69 pg/mL (2.3-4.2) Adrenocorticotropic Hormone 2.2 pg/mL (7.2-63.3) Cortisol AM Sample 1.61 ug/dL (5.27-22.45) Anti-Nuclear Antibody Screen Negative (Negative) Test 08/01/24 16:45 08/01/24 16:00 08/01/24 11:05 08/01/24 05:15 Thyroid Stimulating Immunoglobulin <0.10 IU/L (0.00-0.55) Thyrotropin Receptor Antibody 1.43 IU/L (0.00-1.75) Urine Color Light-yellow (Yellow) Urine Clarity Clear (Clear) Urine pH 6.0 (5.0-9.0) Urine Specific [place] 1.026 (1.001-1.035) Urine Protein Negative (Negative) Urine Ketones Negative (Negative) Urine Blood Negative /uL (Negative) Urine Nitrite Negative (Negative) Urine Bilirubin Negative (Negative) Urine Urobilinogen Normal mg/dL (Negative) Urine Leukocyte Esterase Negative /uL (Negative) Urine RBC <1 /hpf (0 - 3) Urine Microscopic WBC < 1 /HPF (0-3) Urine Squamous Epithelial Cells None seen /hpf (<5) Urine Bacteria None seen /hpf (None Seen) Urine Osmolality 594 mOsm/kg Urine Creatinine 71.43 mg/dL (30.0-125.0) Urine Sodium 18 mmol/L (40-220) Urine Glucose 4+ mg/dL (Normal) Urine Total Protein 66.8 mg/dL (1-14) Urine Opiates Screen Neg (NEGATIVE) Urine Fentanyl Screen Neg (NEGATIVE) Urine Barbiturates Screen Neg (NEGATIVE) Urine Phencyclidine Screen Neg (NEGATIVE) Urine Amphetamines Screen Neg (NEGATIVE) Urine Benzodiazepines Screen Neg (NEGATIVE) Urine Cocaine Screen Neg (NEGATIVE) Urine Cannabinoids Screen Neg (NEGATIVE) Serum Osmolality 280 mOsm/kg (278-298) Iron Level 163 ug/dL (65-175) Total Iron Binding Capacity 261 ug/dL (250-425) Percent Iron Saturation 62.5 % (20-55) Ferritin 1053.6 ng/mL (22-322) Erythrocyte Sedimentation Rate 1 mm/hr (0-20) Uric Acid < 0.5 mg/dL (3.7-9.2) Erythropoietin 3.4 mIU/mL (2.6-18.5) Test 07/31/24 13:56 07/31/24 10:52 Troponin I High Sensitivity 185 ng/L (</=54) D-Dimer, Quantitative 0.27 mg/L FEU (0.0-0.49) Hemoglobin A1c 5.7 % A1C (<5.7) B-Type Natriuretic Peptide 87.16 pg/mL (0-100) Other Laboratory Tests 08/03/24 10:27 Brief Hx & Hospital Course: A 38-year-old male with a history of hypertrophic cardiomyopathy, status post- AICD placement for secondary prevention, and suspected adrenal insufficiency was admitted with shortness of breath and chest discomfort. Patient was assessed by cardiology who didn't consider ACS Initial evaluation revealed a hyponatremia and hypokalemia. Which were treated. Workup for polycythemia and thyroid dysfunction was inconclusive, though a low TSH of 0.04 IU/mL and a slightly elevated free T3 were noted. Hepatic steatosis and mild transaminitis were identified but required no urgent intervention.The patient received with dexamethasone which explained suppressed cortisol level of 1.61 g/dL and an ACTH level of 2.2 pg/mL, so further studies need to be done to study possible adrenal insufficiency. His symptoms improved significantly. He was stable on room air, with no oxygen requirements. Follow-up with endocrinology is recommended for ACTH stimulation testing to confirm adrenal insufficiency and further thyroid studies. He was discharged in good condition with instructions to continue his current medications, maintain adequate hydration, and adhere to cardiology follow-up for hypertrophic cardiomyopathy management. General Appearance: No Distress HEENT: Normal ENT Inspection, Pharynx Normal, TMs Normal Neck: Full Range of Motion, Non-Tender, Normal, Normal Inspection Respiratory: Chest Non-Tender, Lungs Clear, No Accessory Muscle Use, No Respiratory Distress, Normal Breath Sounds Cardiovascular: No Edema, No JVD, No Murmur, No Gallop, Normal Peripheral Pulses, Regular Rate/Rhythm, Other (AICD in place) Breast Exam: Deferred Gastrointestinal: No Organomegaly, Non Tender, No Pulsatile Mass, Normal Bowel Sounds, Soft Genitalia: Deferred Pelvic: Deferred Rectal: Deferred Extremities: No calf tenderness, Normal capillary refill, Normal inspection, Normal range of motion, Non-tender, No pedal edema Musculoskeletal : Apperance: Normal 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 COMPARISON: US GALLBLADDER on DOS: 05/02/24 FINDINGS: The liver demonstrates homogeneous echotexture without focal mass lesions. The liver measures 15.8 cm. There is no intrahepatic or extrahepatic ductal dilatation. The common duct measures 0.3 cm. Gallbladder sludge is present. The gallbladder wall measures 0.1 cm and is within normal limits. The right kidney measures 11.0 cm. The right kidney is normal in contour, size, and shape. The echogenicity is normal. There is no hydronephrosis. The pancreas is not well visualized due to overlying bowel gas. IMPRESSION: Gallbladder sludge is present. ULTRASOUND SOFT TISSUE HEAD AND NECK CLINICAL INDICATION: Hyperthyroid TECHNIQUE: Multiple real time sonographic images of the thyroid were obtained. Comparison: None FINDINGS: The right thyroid gland measures 5.6 x 1.9 x 2.0 cm. The left thyroid gland measures approximately 5.8 x 2.1 x 1.8 cm. The isthmus measures 0.4 cm. IMPRESSION: 1. Normal Thyroid. [employer] [place] [employer] TI-RADS Categories and Recommendations (2017): TR1: 0 points, Benign, No FNA TR2: 2 points, Not suspicious, No FNA TR3: 3 points, Mildly suspicious, FNA if > or = 2.5 cm, Follow if > or = 1.5 cm TR4: 4-6 points, Moderately Suspicious, FNA if > or = 1.5 cm, Follow if > or = 1.0 cm TR5: 7+ points, Highly Suspicious, FNA if > or = 1.0 cm, Follow if > or = 0.5 cm Follow-up ultrasound guidelines: TR5: yearly for 5 years, if no growth or change in TI-RADS level TR4: at 1, 2, 3 and 5 years, if no growth or change in TI-RADS level TR3: at 1, 3 and 5 years, if no growth or change in TI-RADS level If increased but below threshold for FNA, repeat in one year. 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 Patient was counseled about treatment plan, medications, possible side effects, patientverbalized understanding. All questions were answered to the best of my ability. This discharge took greater then 30 minutes in planning, reviewing documentation, counseling the patient, and discussing with other team members." ASSESSMENT ASSESSMENT Assessment #Viral Pneumonitis #Polycitemia probably secondary #NSTEMI likely type 2 #ACS ruled out #CKD 3 a #Diastolic congestive heart failure-controlled #Paroxistic Atrial fibrillation #Hypertrophic cardiomyopathy status post AICD placement for secondary prevention (history of V-tach) #Hypokalemia #Hyponatremia: euvolemic #Hepatic steatosis #Transaminitis #Obstructive sleep apnea #Hyperthyrodisim vs thyroiditis? #Gout #Hypertension #Adrenal insufficiency? Date of Service: Aug 03, 2024 Billing Provider: JEROMY JAMES MD Common Visit Codes: 21366-UIW/OBS DISCH DAY >30min CONRADO ELLIS RESIDENT Aug 04, 2024 06:43 JEROMY JAMES MD Aug 04, 2024 11:26
== END 2024-08-03 14:04 | disposition home or self-care (01) | DRG 144 ==
LOC: ER 10:18 → TELE 16:20 → TELE-WESTW 08-01 09:08
PROVIDERS: ADMIT Internal Medicine; ATTEND Emergency Medicine
DX: J98.4 Other disorders of lung (principal); N17.0 Acute kidney failure with tubular necrosis; I21.A1 Myocardial infarction type 2; E87.1 Hypo-osmolality and hyponatremia; I13.0 Hypertensive heart and chronic kidney disease with heart failure and stage 1 through stage 4 chronic kidney disease, or unspecified chronic kidney disease; I42.1 Obstructive hypertrophic cardiomyopathy; E27.40 Unspecified adrenocortical insufficiency; I50.32 Chronic diastolic (congestive) heart failure; J44.0 Chronic obstructive pulmonary disease with (acute) lower respiratory infection; E87.6 Hypokalemia; J44.1 Chronic obstructive pulmonary disease with (acute) exacerbation; E87.8 Other disorders of electrolyte and fluid balance, not elsewhere classified; E66.9 Obesity, unspecified; R74.01 Elevation of levels of liver transaminase levels; D75.1 Secondary polycythemia; R73.9 Hyperglycemia, unspecified; G47.33 Obstructive sleep apnea (adult) (pediatric); E07.81 Sick-euthyroid syndrome; I48.91 Unspecified atrial fibrillation; M10.9 Gout, unspecified; I47.20 Ventricular tachycardia, unspecified; N18.31 Chronic kidney disease, stage 3a; K76.0 Fatty (change of) liver, not elsewhere classified; Z82.49 Family history of ischemic heart disease and other diseases of the circulatory system; Z95.810 Presence of automatic (implantable) cardiac defibrillator; Z83.3 Family history of diabetes mellitus; Z68.39 Body mass index [BMI] 39.0-39.9, adult
CPT/HCPCS: 36415; 71046; 76536; 76705; 80048; 80053; 80307; 81001; 82024; 82088; 82533; 82570; 82668; 82728; 83036; 83540; 83550; 83880; 83930; 83935; 84156; 84244; 84300; 84439; 84443; 84445; 84481; 84484; 84550; 85025; 85379; 85652; 86038; 86376; 93005; 93306; 96361; 96365; 96366; 96375; 99291; G0378; J1100; J3480; J3490

== ENCOUNTER 2025-07-09 09:17 | Emergency (ER) | payer MEDICARE, MEDICAID ==
[~2025-07-09] VITALS: Ht 170.2 cm; Wt 117.6 kg
--- NOTE | 2025-07-09 09:48 | ED.PDOC ---
General HPI Comments 39 year old male with A-fib, CHF, COPD, Gout, HTN, OH, pacemaker presents to the ED with a chief complaint of RT groin pain onset 1 day. Patient states he began experiencing RT groin pain radiating to RT leg for the past day, worsens with ambulation. Patient went to urgent care, was recommended to come to ED. Denies fall, trauma, nausea, vomiting, diarrhea, hematuria, dysuria, dizziness, fever, chills, abdominal pain. No other symptoms or modifying factors present at this time. Chief Complaint: Lower Extremity Time Seen by MD: 09:35 Primary Care Provider: Victor Hugo Reviewed notes: Medications, Allergies Allergies: Coded Allergies: NO KNOWN ALLERGIES (Unverified , 03/15/19) Home Meds Active Scripts Ibuprofen Micronized (MOTRIN TABLET) 600 Mg Tb, 600 MG PO TID PRN for 3 Days, #9 TAB *Black box warning-NSAIDS can increase risk of OH & hypertension, GI irritation, ulceration, bleed, perferation. Do not use post cardiac surgery. Use short duration/lowest effective dose. Prov:DAREK GRAJEDA MD 07/09/25 Spironolactone (Spironolactone) 100 Mg Tab, 1 TAB PO DAILY, #30 TAB 11 Refills Prov:NESHA RICHTER 05/03/24 Pantoprazole Sodium Sesquihydr (Pantoprazole Sodium) 40 Mg Tab, 40 MG PO DAILY for 30 Days, #30 TAB Prov:NESHA RICHTER 05/03/24 Metoprolol Tartrate (Lopressor) 25 Mg Tb, 25 MG PO BID for 30 Days, #60 TAB Prov:KENNEDY CARVER 12/01/23 Ergocalciferol (VITAMIN D 10375 UNIT) 50,000 [place], [address] UNIT PO Q7D for 30 Days, #10 CAP Prov:KENNEDY CARVER 12/01/23 Amiodarone HCl (Amiodarone HCl) 200 Mg Tab, 200 MG PO BID for 30 Days, #60 TAB Prov:KENNEDY CARVER 12/01/23 Empagliflozin (Jardiance) 10 Mg Tab, 10 MG PO QAM for 30 Days, #30 TAB 3 Refills Prov:ANSLEY ORTEGA MD 07/09/22 Atorvastatin Calcium (ATORVASTATIN CALCIUM) 20 Mg Tab, 1 TAB PO DAILY, #30 TAB 5 Refills Prov:JESSICA GRESHAM MD 05/16/22 Clopidogrel Bisulfate (Plavix) 75 Mg Tab, 1 TAB PO DAILY, #30 TAB 1 Refill Prov:JESSICA GRESHAM MD 05/16/22 Reported Medications Semaglutide (Wegovy) 2.4 Mg/0.75 Ml Inj, 2.4 MG SC ONCE, INJ 05/01/24 Ferric Citrate (Auryxia) 210 Mg Tab, 210 MG PO TID, TAB 05/01/24 Mycophenolate Mofetil (Cellcept) 500 Mg Tab, 2 TAB PO BID, #360 TAB 3 Refills 05/01/24 Mavacamten (Camzyos) 5 Mg Cap, 5 MG PO DAILY, CAP 05/01/24 Bumetanide (Bumex) 2 Mg Tab, 1 MG PO DAILY 11/29/23 Vericiguat (Verquvo) 2.5 Mg Tab, 2.5 MG PO DAILY, TAB 11/29/23 Spironolactone (Spironolactone) 100 Mg Tab, 100 MG PO BID, TAB 11/29/23 Allopurinol (Allopurinol) 100 Mg Tab, 200 MG PO DAILY, TAB 10/25/20 Information Source: Patient, Spouse Mode of Arrival: Ambulatory Severity: Moderate Timing: Days Duration: Since onset Prehospital treatment: None Onset: Spontaneous Symptoms: None History of: None Location male: R Scrotum Penile discharge: None Modifying factors: None Past Medical History PAST MEDICAL HISTORY: AFIB, CHF, COPD, Gout, HTN, OH Surgical History: Pacemaker Family History Family History: Family hx of heart neda, Family hx of HTN Social History Smoker: Non-Smoker Alcohol: Denies ETOH Use Drugs: Denies Drug Use Lives In: Home Constitutional: denies: chills, diaphoresis, fatigue, fever, malaise, sweats, weakness, others EENTM: denies: blurred vision, double vision, ear bleeding, ear discharge, ear drainage, ear pain, ear ringing, eye pain, eye redness, hearing loss, mouth pain, mouth swelling, nasal discharge, nose bleeding, nose congestion, nose pain, photophobia, tearing, throat pain, throat swelling, voice changes, others Respiratory: denies: cough, hemoptysis, orthopnea, SOB at rest, shortness of breath, SOB with excertion, stridor, wheezing, others Cardiovascular: denies: chest pain, dizzy spells, diaphoresis, Dyspnea on exertion, edema, irregular heart beat, left arm pain, lightheadedness, palpitations, PND, syncope, others Gastrointestinal: denies: abdomen distended, abdominal pain, blood streaked bowels, constipated, diarrhea, dysphagia, difficulty swallowing, hematemesis, melena, nausea, poor appetite, poor fluid intake, rectal bleeding, rectal pain, vomiting, others Genitourinary: reports: others (RT groin pain); denies: burning, dysuria, flank pain, frequency, hematuria, incontinence, penile discharge, penile sore, pain, testicle pain, testicle swelling, urgency Neurological: denies: dizziness, fainting, headache, left sided numbness, left sided weakness, numbness, paresthesia, pre-existing deficit, right sided numbness, right sided weakness, seizure, speech problems, tingling, tremors, weakness, others Musculoskeletal: reports: others (RT leg); denies: back pain, gout, joint pain, joint swelling, muscle pain, muscle stiffness, neck pain Integumetry: denies: bruises, change in color, change in hair/nails, dryness, laceration, lesions, lumps, rash, wounds, others Allergic/Immunocompromised: denies: Difficulty Healing, Frequent Infections, Hives, Itching, others Hematologic/Lymphatic: denies: anemia, blood clots, easy bleeding, easy bruising, swollen glands, others Endocrine: denies: excessive hunger, excessive sweating, excessive thirst, excessive urination, flushing, intolerance to cold, intolerance to heat, unexplained weight gain, unexplained weight loss, others Psychiatric: denies: anxiety, bipolar disorder, depression, hopeless, panic disorder, schizophrenia, sleepless, suicidal, others All Other Systems: Reviewed and Negative Physical Exam General Appearance: Moderate Distress, Normal HEENT: Normal ENT Inspection, Pharynx Normal, TMs Normal Neck: Full Range of Motion, Non-Tender, Normal, Normal Inspection Respiratory: Chest Non-Tender, Lungs Clear, No Accessory Muscle Use, No Respiratory Distress, Normal Breath Sounds Cardiovascular: No Edema, No JVD, No Murmur, No Gallop, Normal Peripheral Pulses, Regular Rate/Rhythm Breast Exam: Deferred Gastrointestinal: No Organomegaly, Non Tender, No Pulsatile Mass, Normal Bowel Sounds, Soft Genitalia: Deferred Pelvic: Deferred Rectal: Deferred Extremities: No calf tenderness, Normal capillary refill, Normal inspection, Normal range of motion, Non-tender, No pedal edema Musculoskeletal : Apperance: Normal 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 Was a procedure done?: No Differential Diagnosis Kidney stone (Female): Musculoskeletal pain, Urinary obstruction, Urolithiasis Penile/Scrotal: UTI, Hydrocele X-Ray, Labs, Meds, VS Vital Signs Date Time Temp Pulse Resp B/P (MAP) Pulse Ox O2 Delivery O2 Flow Rate FiO2 07/09/25 13:05 99.6 100 17 102/67 (79) 95 99.6 07/09/25 10:36 99.9 101 18 92/50 (64) 98 99.9 07/09/25 09:19 98.4 93 18 103/61 97 98.4 Current Medications Medications (Trade) Dose Ordered Sig/Kathleen Route Start Time Stop Time Status Last Admin Ketorolac Tromethamine (Toradol Injection) 60 mg ONCE ONCE IM 07/09/25 09:45 07/09/25 09:46 DC 07/09/25 10:29 Patient alert. Complaining of right lower extremity pain. DVT study within normal limits. Answering all questions. Saturation pristine on room air. Was given pain medication. Ultrasound of the testicle does not show any acute process. Was given prescription of Motrin. Explained to the patient. Was told to follow up with his primary care physician. Was told to come back if there is any problem. [address] [address] Ph: [phone] DIAGNOSTIC IMAGING Diagnostic Imaging Report : [id number] Signed PATIENT: CHRISTOPHER PARTIDA ACCT: [id number] UNIT: [id number] : 1985 LOC: ER ROOM / BED: / AGE / SEX: 39 / M ADM STATUS: REG ER SERVICE [id number] ORDERING PHYSICIAN: DAREK GRAJEDA MD PROCEDURE(s): TESUS - TESTICULAR ULTRASOUND REASON: RIGHT TESTICULAR PAIN ORDER NUMBER(s): [id number], ACCESSION NUMBER(s): [id number] ULTRASOUND OF SCROTUM AND CONTENTS. INDICATION: RIGHT TESTICULAR PAIN COMPARISON: None TECHNIQUE: Multiple real-time grayscale sonographic and color and duplex Doppler images of the scrotum and its contents were obtained. FINDINGS: The right testicle measures 3.8 x 2.4 x 3.1 cm. The left testicle measures 3.6 x 2.3 x 3.2 cm. Both testicles demonstrate homogeneous echotexture without evidence of focal lesions. The right epididymal head measures 1.6 cm. The left epididymal head measures 1.3 cm. Left epididymal head cyst measures 0.3 cm. Left appendix testes measures 0.6 cm. Subsequent color and duplex Doppler interrogation of the testes demonstrated symmetric normal vascular flow to both testicles. No focal areas of hyperemia were seen. IMPRESSION: 1. No evidence of torsion, epididymitis, and/or orchitis. 2. Small left hydrocele. ATED BY: JONA MONTOYA MD DICTATED DATE/TIME: 07/09/25 1200 SIGNED BY: JONA MONTOYA MD SIGNED DATE/TIME: 07/09/25 1200 CC: [place] [id number] Ph: [phone] DIAGNOSTIC IMAGING Diagnostic Imaging Report : [id number] Signed PATIENT: CHRISTOPHER PARTIDA ACCT: [id number] UNIT: [id number] : 1985 LOC: ER ROOM / BED: / AGE / SEX: 39 / M ADM STATUS: REG ER SERVICE [id number] ORDERING PHYSICIAN: DAREK GRAJEDA MD PROCEDURE(s): RLDVT - RT Lower DVT REASON: dvt ORDER NUMBER(s): [id number], ACCESSION NUMBER(s): [id number] Right lower extremity venous duplex CLINICAL HISTORY: dvt COMPARISON: None FINDINGS: Duplex Doppler evaluation of the deep venous systems of the right lower extremity from the common femoral veins to the popliteal veins including color Doppler and spectral/pulsed waveform analysis was performed. RIGHT SIDE: The common femoral vein demonstrates appropriate compressibility and waveform variability. There is compressibility/patency of the great saphenous vein at the proximal thigh. The femoral vein demonstrates appropriate compressibility and waveform variability. The deep femoral vein demonstrates appropriate compressibility and waveform variability. The popliteal vein demonstrates appropriate compressibility and waveform variability. IMPRESSION: 1. No deep venous thrombosis in the right lower extremity. ATED BY: CATALINO MAYEN MD DICTATED DATE/TIME: 07/09/25 102 SIGNED BY: CATALINO MAYEN MD SIGNED DATE/TIME: 07/09/251022 CC: Time of 1ST Reevaluation: 10:05 Reevaluation 1ST: Unchanged Patient Education/Counseling: Diagnosis, Treatment, Prognosis Family Education/Counseling: Diagnosis, Treatment, Prognosis SEPSIS Sepsis Screen Date sepsis recognized/suspect: Jul 09, 2025 Time Sepsis recognized/suspect: 920 Recent Procedure: No On Antibiotic Therapy: No Respiratory Rate >20: No Heart Rate >90: No Temp<36 C (96.8 F) or >38.3 C: No SBP <90 or MAP <65 mmHG: No New Acute Mental Status Change: No Is the patient on CPAP, BIPAP,: No Physician Orders Rt Lower Dvt (07/09/25 09:44) Testicular Ultrasound (07/09/25 10:36) Vital Signs Date Time Temp Pulse Resp B/P (MAP) Pulse Ox O2 Delivery O2 Flow Rate FiO2 07/09/25 13:05 99.6 100 17 102/67 (79) 95 99.6 07/09/25 10:36 99.9 101 18 92/50 (64) 98 99.9 07/09/25 09:19 98.4 93 18 103/61 97 98.4 Medications Medications Dose Ordered Sig/Kathleen Route Start Time Stop Time Status Last Admin Dose Admin Ketorolac Tromethamine 60 mg ONCE ONCE IM 07/09/25 09:45 07/09/25 09:46 DC 07/09/25 10:29 Departure 1 Departure Time of Disposition: 13:20 Impression: Primary Impression: Inguinal strain Qualified Codes: S76.211A - Strain of adductor muscle, fascia and tendon of right thigh, initial encounter Disposition: HOME / SELF CARE / HOMELESS Condition: Good e-Prescriptions Ibuprofen Micronized (MOTRIN TABLET) 600 Mg Tb 600 MG PO TID PRN for 3 Days, #9 TAB *Black box warning-NSAIDS can increase risk of OH & hypertension, GI irritation, ulceration, bleed, perferation. Do not use post cardiac surgery. Use short duration/lowest effective dose. Prov: DAREK GRAJEDA MD 07/09/25 Discharged With: Self Critical Care Note Critical Care Time?: No Stability Stability form required: No Heart Score Heart Score: Heart Score Response (Comments) Value History N/A 0 EKG N/A 0 Age N/A 0 Risk Factors N/A 0 Troponin N/A 0 Total 0 I personally scribed for DAREK GRAJEDA MD ([email or web address]) on 07/09/25 at 09:48. Electronically submitted by Shireen Menjivar ([email or web address]). I personally scribed for DAREK GRAJEDA MD ([email or web address]) on 07/09/25 at 10:37. Electronically submitted by Shireen Menjivar ([email or web address]). I personally scribed for DAREK GRAJEDA MD ([email or web address]) on 07/09/25 at 13:23. Electronically submitted by Shireen Menjivar ([email or web address]). DAREK GRAJEDA MD Jul 09, 2025 09:48
--- NOTE | 2025-07-09 10:25 | DVH ---
Right lower extremity venous duplex CLINICAL HISTORY: dvt COMPARISON: None FINDINGS: Duplex Doppler evaluation of the deep venous systems of the right lower extremity from the common femoral veins to the popliteal veins including color Doppler and spectral/pulsed waveform analysis was performed. RIGHT SIDE: The common femoral vein demonstrates appropriate compressibility and waveform variability. There is compressibility/patency of the great saphenous vein at the proximal thigh. The femoral vein demonstrates appropriate compressibility and waveform variability. The deep femoral vein demonstrates appropriate compressibility and waveform variability. The popliteal vein demonstrates appropriate compressibility and waveform variability. IMPRESSION: 1. No deep venous thrombosis in the right lower extremity.
[2025-07-09] MEDS: KETOROLAC TROMETH 60MG/2ML VIAL IM ONE (10:29)
--- NOTE | 2025-07-09 12:03 | DVH ---
ULTRASOUND OF SCROTUM AND CONTENTS. INDICATION: RIGHT TESTICULAR PAIN COMPARISON: None TECHNIQUE: Multiple real-time grayscale sonographic and color and duplex Doppler images of the scrotum and its contents were obtained. FINDINGS: The right testicle measures 3.8 x 2.4 x 3.1 cm. The left testicle measures 3.6 x 2.3 x 3.2 cm. Both testicles demonstrate homogeneous echotexture without evidence of focal lesions. The right epididymal head measures 1.6 cm. The left epididymal head measures 1.3 cm. Left epididymal head cyst measures 0.3 cm. Left appendix testes measures 0.6 cm. Subsequent color and duplex Doppler interrogation of the testes demonstrated symmetric normal vascular flow to both testicles. No focal areas of hyperemia were seen. IMPRESSION: 1. No evidence of torsion, epididymitis, and/or orchitis. 2. Small left hydrocele.
[2025-07-09 13:05] VITALS: BP 102/67; PULSE 100; RESP 17; TEMP 99.6; O2SAT 95
[2025-07-09] MEDS ORDERED: IBU600T PO (13:21)
== END 2025-07-09 13:31 | disposition home or self-care (01) ==
LOC: ER 09:19
DX: S39.011A Strain of muscle, fascia and tendon of abdomen, initial encounter (principal); I11.0 Hypertensive heart disease with heart failure; I50.9 Heart failure, unspecified; J44.9 Chronic obstructive pulmonary disease, unspecified; I48.91 Unspecified atrial fibrillation; M10.9 Gout, unspecified; Z79.899 Other long term (current) drug therapy; Z95.0 Presence of cardiac pacemaker; Z86.718 Personal history of other venous thrombosis and embolism; Z79.84 Long term (current) use of oral hypoglycemic drugs; Z79.624 Long term (current) use of inhibitors of nucleotide synthesis; Z79.02 Long term (current) use of antithrombotics/antiplatelets; X58.XXXA Exposure to other specified factors, initial encounter; Y93.89 Activity, other specified; Y92.89 Other specified places as the place of occurrence of the external cause; Y99.8 Other external cause status
CPT/HCPCS: 76870; 93971; 96372; 99285; J1885